=== PATIENT | male | born 1970 | race Caucasian/White ===

== ENCOUNTER → 2017-06-18 | Outpatient (CLI) | payer OTHER ==
[~2017-06-18] MED LIST: /BACIOPOI; CIPR500T19; INSUHUMDS SC; LEVO25TA5 PO; OMEP40CA2 PO; PERC5TAB8; PRIL20CA
--- NOTE | 2017-06-18 10:24 | REP ---
Gastric emptying nuclear scintigraphy: History: Gastroesophageal reflux. Technique: 1.09 mCi of technetium-99m sulfur colloid was ingested in two scrambled eggs and 6 ounces of water and sequential anterior and posterior images are acquired for an 89-minute imaging observation period. Regions of interest are drawn around the stomach to plot gastric emptying. Scintigraphic findings: Expected T1/2 is 90 minutes. 62 % emptying is observed in this patient during the 89-minute imaging observation period, for a calculated T1/2 in this patient of 78 minutes. Impression: Normal gastric emptying. Signed by Bill Griffiths MD 06/18/2017 10:15 A
== END ==
LOC: M RAD 07:37
PROVIDERS: ATTEND Nurse Practitioner Acute Care
DX: K21.9 Gastro-esophageal reflux disease without esophagitis (principal)

== ENCOUNTER 2017-07-24 12:03 | Outpatient (CLI) | payer OTHER ==
[~2017-07-24] VITALS: Ht 180.3 cm; Wt 88.9 kg
[2017-07-24] MEDS ORDERED: NS 1,000 ML IV ONE (12:45)
[2017-07-24] MEDS ORDERED: DEXTROSE 50% 50 ML SYRINGE As Ordered ONE (13:18)
[2017-07-24] MEDS ORDERED: PROPOFOL 200 MG/20 ML VIAL As Ordered ONE ×2 (13:41→13:51)
[2017-07-24] MEDS ORDERED: LIDOCAINE 2% INJ 100 MG/5 ML SDV (FOR ANES.) As Ordered ONE (13:41)
[2017-07-24] MEDS ORDERED: ONDANSETRON 4MG/2ML VIAL (J2405) As Ordered ONE (13:41)
[2017-07-24] MEDS ORDERED: DEXTROSE 50% 50 ML SYRINGE IV ONE (13:45)
--- NOTE | 2017-07-24 14:05 | ROOR ---
Patient Name: Jair Burnett Procedure Date: 07/24/2017 1:36 PM Date of : 1970 Age: 47 Room: [facility], [facility]IN [facility] Gender: Male Note Status: Finalized Procedure: Upper GI endoscopy Indications: Suspected non-erosive esophageal reflux Providers: Ignacio Kidd MD Referring MD: YESENIA CONSTANTINO JR, MD Requesting Provider: Medicines: Monitored Anesthesia Care Complications: No immediate complications. Procedure: Pre-Anesthesia Assessment: - Prior to the procedure, a History and Physical was performed, and patient medications and allergies were reviewed. The patient is competent. The risks and benefits of the procedure and the sedation options and risks were discussed with the patient. All questions were answered and informed consent was obtained. Patient identification and proposed procedure were verified by the physician, the nurse and the show worker in the procedure room. Mental Status Examination: alert and oriented. Airway Examination: normal oropharyngeal airway and neck mobility. Respiratory Examination: clear to auscultation. CV Examination: normal. Prophylactic Antibiotics: The patient does not require prophylactic antibiotics. Prior Anticoagulants: The patient has taken no previous anticoagulant or antiplatelet agents. ASA Grade Assessment: II - A patient with mild systemic disease. After reviewing the risks and benefits, the patient was deemed in satisfactory condition to undergo the procedure. The anesthesia plan was to use monitored anesthesia care (MAC). Immediately prior to administration of medications, the patient was re-assessed for adequacy to receive sedatives. The heart rate, respiratory rate, oxygen saturations, blood pressure, adequacy of pulmonary ventilation, and response to care were monitored throughout the procedure. The physical status of the patient was re-assessed after the procedure. The Endoscope was introduced through the mouth, and advanced to the second part of duodenum. The upper GI endoscopy was accomplished without difficulty. The patient tolerated the procedure well. Findings: The Z-line was regular and was found 35 cm from the incisors. A medium-sized hiatal hernia was present. Diffuse moderate inflammation characterized by erythema and granularity was found in the gastric antrum. Biopsies were taken with a cold forceps for Helicobacter pylori testing. Verification of patient identification for the specimen was done by the physician and nurse using the patient's name, date and medical record number. Estimated blood loss was minimal. The duodenal bulb and second portion of the duodenum were normal. Impression: - Z-line regular, 35 cm from the incisors. - Medium-sized hiatal hernia. - Gastritis. Biopsied. - Normal duodenal bulb and second portion of the duodenum. Recommendation: - Patient has a contact number available for emergencies. The signs and symptoms of potential delayed complications were discussed with the patient. Return to normal activities tomorrow. Written discharge instructions were provided to the patient. - Resume previous diet. - Continue present medications. - Do not take omeprazole or pantoprazole or any acid medications for the next 3 days. - Await pathology results. - Return to GI clinic as previously scheduled on 07/30/2017 at 8:30 AM. - Return to primary care physician. Ignacio Kidd MD Ignacio Kidd MD 07/24/2017 2:04:43 PM This report has been signed electronically. Number of Addenda: 0 Note Initiated On: 07/24/2017 1:36 PM Estimated Blood Loss: Estimated blood loss was minimal.
[2017-07-24 14:30] VITALS: BP 123/82
--- NOTE | 2017-08-10 14:40 | ROOR ---
Patient Name: Jair Burnett Procedure Date: 07/24/2017 1:40 PM Date of : 1970 Age: 47 Room: [facility] Gender: Male Note Status: Finalized Procedure: Esophageal MAYO pH Capsule Results / Interpretation Indications: Suspected gastro-esophageal reflux disease, Failure to respond to treatment of esophageal reflux Providers: Ignacio Kidd MD Referring MD: YESENIA CONSTANTINO JR, MD Requesting Provider: Medicines: None Complications: No immediate complications. Procedure: Pre-Anesthesia Assessment: - After reviewing the risks and benefits, the patient was deemed in satisfactory condition to undergo the procedure. - Patient identification and proposed procedure were verified prior to the procedure by the physician and the nurse. The procedure was verified in the pre-procedure area. The MAYO was accomplished without difficulty. The patient tolerated the procedure well. Findings: During the study the patient continued normal daily activity and normal diet and took no anti-reflux medications. DAY 1 ACID REFLUX ANALYSIS: - Acid Exposure with pH < 4.0: Total Percent Time: 10.3 %. - Number of Reflux Episodes: Total Refluxes: 34 Number of reflux episodes > 5 minutes: 6. - Longest reflux episode: 55 minutes. - See the [employer] MAYO data report for further details. DAY 2 ACID REFLUX ANALYSIS: - Acid Exposure Time(s) for pH < 4.0: Total Percent Time: 5.9 %. - Number of Reflux Episodes: Total Refluxes: 16 Number of reflux episodes > 5 minutes: 6. - Longest reflux episode: 24 minutes. - See the [employer] MAYO data report for further details. Total DeMeester Score: 37.2 Symptom correlation: Yes. Impression: - Abnormal ambulatory esophageal pH study indicating severely increased acid reflux. - Acid reflux is the cause of the patient's symptoms; there is excess acid exposure with good symptom correlation. - The complete results of this study (for the same date as above) are available in the patient's electronic medical record, and these results were personally reviewed by me. Attending Participation: I have reviewed and interpreted the results of the above documented diagnostic study. Ignacio Kidd MD Ignacio Kidd MD 08/10/2017 2:40:08 PM This report has been signed electronically. Number of Addenda: 0 Note Initiated On: 08/10/2017 2:24 PM
== END 2017-07-24 14:44 | disposition home or self-care (01) ==
LOC: M OPP 12:03
PROVIDERS: ATTEND Internal Medicine Gastroenterology
DX: K21.9 Gastro-esophageal reflux disease without esophagitis (principal); K29.70 Gastritis, unspecified, without bleeding; K44.9 Diaphragmatic hernia without obstruction or gangrene; E10.9 Type 1 diabetes mellitus without complications; Z96.41 Presence of insulin pump (external) (internal); E03.9 Hypothyroidism, unspecified; Z87.891 Personal history of nicotine dependence; Z91.013 Allergy to seafood; Z79.899 Other long term (current) drug therapy; Z80.0 Family history of malignant neoplasm of digestive organs
CPT/HCPCS: 43239; 88305; J2405

== ENCOUNTER → 2017-08-24 | Outpatient (CLI) | payer OTHER ==
--- NOTE | 2017-08-28 21:41 | SLEEPCENT ---
DATE OF PROCEDURE: 08/24/2017 ORDERED BY: Tiffanie Rivera Nocturnal polysomnography was performed for evaluation of sleep physiology in this patient with a history of excessive somnolence and nonrestorative sleep, experiencing observed apneas. The patient has comorbidities of hypotension and type 1 diabetes. 7 hours and 9 minutes of data were reviewed. There were 222 minutes of sleep identified. Sleep latency was mildly prolonged at 24 minutes. Rapid eye movement (REM) latency was quite prolonged at 278 minutes. Sleep architecture showed fragmentation and poor progression. Overall sleep efficiency was below 52%. REM time was significantly reduced. The patient's EKG showed a sinus rhythm with significant rate variability, average heart rate 56 beats per minute. Rate ranged 40-80 beats per minute. EEG showed coarsening in background. There were no focal events appreciated. Some alpha intrusion in non-REM stages was seen. There were 16 respiratory events identified of 10 seconds in duration or greater for an apnea-hypopnea index at the upper limits of normal 4.3. The events were not stage related. They were primarily obstructive. There were no significant oxygen desaturations identified. Limb activity was seen throughout the study, and the limb movement arousal index was quite elevated at 23.5. IMPRESSION: Periodic limb movement disorder (G47.61). Limb movement arousal index 23.5. RECOMMENDATION: Interventions to reduce the frequency of arousal from limb activity should improve the quality of the patient's sleep. Copy To: PETER Mays
== END ==
LOC: M SLEEP 19:54
PROVIDERS: ATTEND Nurse Practitioner Adult Health
DX: G47.30 Sleep apnea, unspecified (principal)

== ENCOUNTER → 2019-03-10 | Outpatient (REF) | payer OTHER | LOC: M LAB REF 12:40 | PROVIDERS: ATTEND Nurse Practitioner Adult Health | DX: E03.9 Hypothyroidism, unspecified (principal) ==

== ENCOUNTER 2020-07-10 17:15 | Emergency (ER) | payer OTHER ==
[~2020-07-10] VITALS: Ht 180.3 cm; Wt 84.3 kg
[~2020-07-10 17:15] MED LIST changes: -OMEP40CA2 PO; +OMEP40CA97 PO
[2020-07-10] MEDS ORDERED: NS 1,000 ML IV ONE ×2 (17:30→19:45)
[2020-07-10] MEDS ORDERED: ONDANSETRON 4MG/2ML VIAL IV ONE (17:45)
[2020-07-10 17:53] LABS: BASO % 0.3 % (0.0-1.0); EOS # 0.1 10^3/uL (0.0-0.5); EOS % 0.6 % (0.0-3.0); HEMATOCRIT 43.6 % (42.0-52.0); HEMOGLOBIN 15.1 g/dl (13.5-17.5); LYMPH # 1.3 10^3/uL (1.5-5.0); LYMPH % 8.6 % (24.0-44.0); MEAN CORPUSCULAR HEMOGLOBIN 32.5 pg (27.0-33.0); MEAN CORPUSCULAR HGB CONC 34.6 g/dl (32.0-36.5); MONO # 0.6 10^3/uL (0.0-0.8); MONO % 4.1 % (0.0-5.0); NEUTROPHILS # 13.3 10^3/uL (1.5-8.5); NEUTROPHILS % 85.8 % (36.0-66.0); PLATELET COUNT, AUTOMATED 324 10^3/uL (150-450); RED BLOOD COUNT 4.64 10^6/uL (4.30-6.10); WHITE BLOOD COUNT 15.5 10^3/uL (4.0-10.0)
[2020-07-10 17:54] LABS: VENOUS HCO3 13.6 MEQ/L (23.0-27.0); VENOUS O2 SATURATION 99.1 % (60.0-80.0); VENOUS PARTIAL PRESSURE CO2 25.5 mmHg (38.0-50.0); VENOUS PARTIAL PRESSURE O2 143.9 mmHg (30.0-50.0); VENOUS PH 7.344 UNITS (7.330-7.430); VENOUS STANDARD HCO3 16.7 MEQ/L; VENOUS TOTAL CO2 14.4 MEQ/L (24.0-28.0)
[2020-07-10] MEDS ORDERED: AMPH1TAB2 (18:09)
[2020-07-10] MEDS ORDERED: HYDR-3363 (18:09)
[2020-07-10] MEDS ORDERED: HumuLIN R (REGULAR) INSULIN (NovoLIN R) **100U/ML** PER UNIT IV ONE ×2 (18:15→19:45)
[2020-07-10 18:38] LABS: HEMOGLOBIN A1c 7.2 %
[2020-07-10 19:05] LABS: OSMOLALITY SERUM 306 MOSM/KG (275-295)
[2020-07-10 19:08] LABS: ACETONE/KETONE 43.31 MG/DL (<2.81); ALBUMIN 3.5 GM/DL (3.2-5.2); ALT/SGPT 20 U/L (12-78); BILIRUBIN,DIRECT 0.4 MG/DL (0.0-0.2); BILIRUBIN,TOTAL 1.2 MG/DL (0.2-1.0); CK-MB VALUE MASS 2.7 NG/ML (<3.6); CPK CREATINE PHOSPHOKINASE 112 U/L (39-308); LIPASE 16 U/L (73-393); MB/CK RELATIVE INDEX 2.41 (< OR =4); PHOSPHORUS LEVEL 4.7 MG/DL (2.5-4.9); TOTAL PROTEIN 6.7 GM/DL (6.4-8.2); TROPONIN I < 0.02 NG/ML (< 0.10)
[2020-07-10 21:42] LABS: ACETONE/KETONE 30.87 MG/DL (<2.81); BLOOD UREA NITROGEN 22 MG/DL (7-18); CALCIUM LEVEL 8.6 MG/DL (8.5-10.1); CARBON DIOXIDE LEVEL 19 MEQ/L (21-32); CHLORIDE LEVEL 106 MEQ/L (98-107); CREATININE FOR GFR 0.94 MG/DL (0.70-1.30); GLOMERULAR FILTRATION RATE > 60.0 (>60); GLUCOSE, FASTING 276 MG/DL (70-100); POTASSIUM SERUM 4.2 MEQ/L (3.5-5.1); SODIUM LEVEL 135 MEQ/L (136-145)
[2020-07-10] MEDS ORDERED: ONDA4TAB6 PO (21:58)
[2020-07-10] MEDS ORDERED: ONDANSETRON 4 MG ORAL DISINTEGRATING TAB PO ONE (22:00)
[2020-07-10 22:10] VITALS: BP 138/84
--- NOTE | 2020-07-11 20:29 | ECGEPIP ---
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
== END 2020-07-10 22:17 | disposition home or self-care (01) ==
LOC: M ED 17:15
DX: E10.65 Type 1 diabetes mellitus with hyperglycemia (principal); R11.2 Nausea with vomiting, unspecified; R00.0 Tachycardia, unspecified; K21.9 Gastro-esophageal reflux disease without esophagitis; Z91.013 Allergy to seafood; Z79.899 Other long term (current) drug therapy
CPT/HCPCS: 80047; 80048; 80076; 81001; 82010; 82550; 82553; 82803; 83036; 83690; 83735; 83930; 84100; 84484; 85025; 93005; 93041; 96361; 96374; 96375; 96376; 99285; J2405; Q0162

== ENCOUNTER → 2020-10-25 | Outpatient (REF) | payer OTHER ==
[~2020-10-25] MED LIST changes: +AMPH1TAB2; +HYDR-3363; +ONDA4TAB6 PO
== END ==
LOC: M LAB REF 08:26
PROVIDERS: ATTEND Surgery
DX: D23.39 Other benign neoplasm of skin of other parts of face (principal)

== ENCOUNTER → 2021-07-10 | Outpatient (CLI) | payer OTHER ==
[~2021-07-10] MED LIST changes: +OMEP40CA4 PO; -OMEP40CA97 PO
--- NOTE | 2021-07-11 06:08 | REP ---
INDICATION: LT ARM LUMP COMPARISON: None TECHNIQUE: Limited grayscale and color evaluation using linear high-frequency transducer. FINDINGS: Directed ultrasound examination at the site of palpable mass along the left forearm demonstrates a vague ovoid area of increased echogenicity measuring approximately 18 x 15 x 6 mm suggesting small lipoma. No further abnormality identified by ultrasound IMPRESSION: 1. Small focal ovoid lesion appears relatively benign by ultrasound and may represent lipoma. <Electronically signed by Kris Rizzo > 07/11/21 [id number]
== END ==
LOC: M RAD 12:46
PROVIDERS: ATTEND Internal Medicine
DX: D17.22 Benign lipomatous neoplasm of skin and subcutaneous tissue of left arm (principal)

== ENCOUNTER 2021-08-17 14:26 | Inpatient (IN) | payer OTHER ==
[~2021-08-17] VITALS: Ht 180.3 cm; Wt 88.5 kg
--- OUTSIDE RECORDS SUMMARY | 2021-08-17 14:32 | CCD ---
Author Author [facility] Organization [facility] Address Unknown Phone Unavailable Care Team Providers Care Manager Of Applications Development Name Role Phone RONY, B MELISSA LOGISTICS TEAM LEADER Unavailable Unavailable RONY, B MELISSA LOGISTICS TEAM LEADER Unavailable Unavailable RONY, B MELISSA LOGISTICS TEAM LEADER Unavailable Unavailable RONY, B MELISSA LOGISTICS TEAM LEADER Unavailable Unavailable RONY, B MELISSA LOGISTICS TEAM LEADER Unavailable Unavailable RONY, B MELISSA LOGISTICS TEAM LEADER Unavailable Unavailable RONY, B MELISSA LOGISTICS TEAM LEADER Unavailable Unavailable RONY, B MELISSA LOGISTICS TEAM LEADER Unavailable Unavailable RONY, B MELISSA LOGISTICS TEAM LEADER Unavailable Unavailable RONY, B MELISSA LOGISTICS TEAM LEADER Unavailable Unavailable RONY, B MELISSA LOGISTICS TEAM LEADER Unavailable Unavailable RONY, B MELISSA LOGISTICS TEAM LEADER Unavailable Unavailable RONY, B MELISSA LOGISTICS TEAM LEADER Unavailable Unavailable RONY, B MELISSA LOGISTICS TEAM LEADER Unavailable Unavailable RONY, B MELISSA LOGISTICS TEAM LEADER Unavailable Unavailable RONY, B MELISSA LOGISTICS TEAM LEADER Unavailable Unavailable RONY, B MELISSA LOGISTICS TEAM LEADER Unavailable Unavailable RONY, B MELISSA LOGISTICS TEAM LEADER Unavailable Unavailable RONY, B MELISSA LOGISTICS TEAM LEADER Unavailable Unavailable RONY, B MELISSA LOGISTICS TEAM LEADER Unavailable Unavailable RONY, B MELISSA LOGISTICS TEAM LEADER Unavailable Unavailable RONY, B MELISSA LOGISTICS TEAM LEADER Unavailable Unavailable RONY, B MELISSA LOGISTICS TEAM LEADER Unavailable Unavailable RONY, B MELISSA LOGISTICS TEAM LEADER Unavailable Unavailable RONY, B MELISSA LOGISTICS TEAM LEADER Unavailable Unavailable RONY, B MELISSA LOGISTICS TEAM LEADER Unavailable Unavailable RONY, B MELISSA LOGISTICS TEAM LEADER Unavailable Unavailable RONY, B MELISSA LOGISTICS TEAM LEADER Unavailable Unavailable RONY, B MELISSA LOGISTICS TEAM LEADER Unavailable Unavailable RONY, B MELISSA LOGISTICS TEAM LEADER Unavailable Unavailable RONY, B MELISSA LOGISTICS TEAM LEADER Unavailable Unavailable RONY, B MELISSA LOGISTICS TEAM LEADER Unavailable Unavailable RONY, B MELISSA LOGISTICS TEAM LEADER Unavailable Unavailable RONY, B MELISSA LOGISTICS TEAM LEADER Unavailable Unavailable RONY, B MELISSA LOGISTICS TEAM LEADER Unavailable Unavailable RONY, B MELISSA LOGISTICS TEAM LEADER Unavailable Unavailable RONY, B MELISSA LOGISTICS TEAM LEADER Unavailable Unavailable RONY, B MELISSA LOGISTICS TEAM LEADER Unavailable Unavailable RONY, B MELISSA LOGISTICS TEAM LEADER Unavailable Unavailable RONY, B MELISSA LOGISTICS TEAM LEADER Unavailable Unavailable RONY, B MELISSA LOGISTICS TEAM LEADER Unavailable Unavailable RONY, B MELISSA LOGISTICS TEAM LEADER Unavailable Unavailable RONY, B MELISSA LOGISTICS TEAM LEADER Unavailable Unavailable RONY, B MELISSA LOGISTICS TEAM LEADER Unavailable Unavailable RONY, B MELISSA LOGISTICS TEAM LEADER Unavailable Unavailable RONY, B MELISSA LOGISTICS TEAM LEADER Unavailable Unavailable RONY, B MELISSA LOGISTICS TEAM LEADER Unavailable Unavailable RONY, B MELISSA LOGISTICS TEAM LEADER Unavailable Unavailable RONY, B MELISSA LOGISTICS TEAM LEADER Unavailable Unavailable RONY, B MELISSA LOGISTICS TEAM LEADER Unavailable Unavailable RONY, B MELISSA LOGISTICS TEAM LEADER Unavailable Unavailable RONY, B MELISSA LOGISTICS TEAM LEADER Unavailable Unavailable RONY, B MELISSA LOGISTICS TEAM LEADER Unavailable Unavailable RONY, B MELISSA LOGISTICS TEAM LEADER Unavailable Unavailable RONY, B MELISSA LOGISTICS TEAM LEADER Unavailable Unavailable RONY, B MELISSA LOGISTICS TEAM LEADER Unavailable Unavailable RONY, B MELISSA LOGISTICS TEAM LEADER Unavailable Unavailable RONY, B MELISSA LOGISTICS TEAM LEADER Unavailable Unavailable RONY, B MELISSA LOGISTICS TEAM LEADER Unavailable Unavailable RONY, B MELISSA LOGISTICS TEAM LEADER Unavailable Unavailable RONY, B MELISSA LOGISTICS TEAM LEADER Unavailable Unavailable RONY, B MELISSA LOGISTICS TEAM LEADER Unavailable Unavailable PICKERAL JR, J RAGHAV PA-C Unavailable Unavailable PICKERAL JR, J RAGHAV PA-C Unavailable Unavailable PICKERAL JR, J RAGHAV PA-C Unavailable Unavailable PICKERAL JR, J RAGHAV PA-C Unavailable Unavailable PICKERAL JR, J RAGHAV PA-C Unavailable Unavailable PICKERAL JR, J RAGHAV PA-C Unavailable Unavailable PICKERAL JR, Matheus AVILEZ PA-C Unavailable Unavailable PICKERAL JR, J RAGHAV PA-C Unavailable Unavailable PICKERAL JR, J RAGHAV PA-C Unavailable Unavailable PICKERAL JR, Matheus AVILEZ PA-C Unavailable Unavailable PICKERAL JR, J RAGHAV PA-C Unavailable Unavailable PICKERAL JR, J RAGHAV PA-C Unavailable Unavailable PICKERAL JR, J RAGHAV PA-C Unavailable Unavailable PICKERAL JR, J RAGHAV PA-C Unavailable Unavailable PICKERAL JR, J RAGHAV PA-C Unavailable Unavailable PICKERAL JR, J RAGHAV PA-C Unavailable Unavailable PICKERAL JR, J ARGHAV PA-C Unavailable Unavailable PICKERAL JR, J RAGHAV PA-C Unavailable Unavailable PICKERAL JR, J RAGHAV PA-C Unavailable Unavailable PICKERAL JR, J RAGHAV PA-C Unavailable Unavailable PICKERAL JR, J RAGHAV PA-C Unavailable Unavailable PICKERAL JR, J RAGHAV PA-C Unavailable Unavailable PICKERAL JR, J RAGHAV PA-C Unavailable Unavailable PICKERAL JR, J RAGHAV PA-C Unavailable Unavailable PICKERAL JR, J RAGHVA PA-C Unavailable Unavailable PICKERAL JR, J RAGHAV PA-C Unavailable Unavailable PICKERAL JR, J RAGHAV PA-C Unavailable Unavailable BRYDEN, A LINSEY DO Unavailable Unavailable BRYDEN, A LINSEY DO Unavailable Unavailable BRYDEN, A LINSEY DO Unavailable Unavailable BRYDEN, A LINSEY DO Unavailable Unavailable BRYDEN, A LINSEY DO Unavailable Unavailable BRYDEN, A LINSEY DO Unavailable Unavailable BRYDEN, A LINSEY DO Unavailable Unavailable BRYDEN, A LINSEY DO Unavailable Unavailable BRYDEN, A LINSEY DO Unavailable Unavailable BRYDEN, A LINSEY DO Unavailable Unavailable BRYDEN, A LINSEY DO Unavailable Unavailable BRYDEN, A LINSEY DO Unavailable Unavailable BRYDEN, A LINSEY DO Unavailable Unavailable BRYDEN, A LINSEY DO Unavailable Unavailable BRYDEN, A LINSEY DO Unavailable Unavailable BRYDEN, A LINSEY DO Unavailable Unavailable BRYDEN, A LINSEY DO Unavailable Unavailable BRYDEN, A LINSEY DO Unavailable Unavailable BRYDEN, A LINSEY DO Unavailable Unavailable BRYDEN, A LINSEY DO Unavailable Unavailable BRYDEN, A LINSEY DO Unavailable Unavailable BRYDEN, A LINSEY DO Unavailable Unavailable BRYDEN, A LINSEY DO Unavailable Unavailable BRYDEN, A LINSEY DO Unavailable Unavailable BRYDEN, A LINSEY DO Unavailable Unavailable BRYDEN, A LINSEY DO Unavailable Unavailable BRYDEN, A LINSEY DO Unavailable Unavailable BRYDEN, A LINSEY DO Unavailable Unavailable BRYDEN, A LINSEY DO Unavailable Unavailable Damian Yuan MD Unavailable Unavailable Damian Yuan MD Unavailable Unavailable Damian Yuan MD Unavailable Unavailable Damian Yuan MD Unavailable Unavailable Damian Yuan MD Unavailable Unavailable Damian Yuan MD Unavailable Unavailable Damian Yuan MD Unavailable Unavailable Damian Yuan MD Unavailable Unavailable JonestownDamian MD Unavailable Unavailable JonestownDamian MD Unavailable Unavailable KwabenaDamian MD Unavailable Unavailable JonestownDamian MD Unavailable Unavailable Jonest[place]Damian MD Unavailable Unavailable KwabenaDamian MD Unavailable Unavailable [place]est[place]Damian MD Unavailable Unavailable [place]est[place]Damian MD Unavailable Unavailable Jonest[place]Damian MD Unavailable Unavailable Jonest[place]Damian MD Unavailable Unavailable KwabenaDamian MD Unavailable Unavailable Jonest[place]Damian MD Unavailable Unavailable [place]est[place]Damian MD Unavailable Unavailable [place]est[place]Damian MD Unavailable Unavailable KwabenaDamian MD Unavailable Unavailable [place]Damian MD Unavailable Unavailable KwabenaDamian MD Unavailable Unavailable KwabenaDamian MD Unavailable Unavailable KwabenaDamian MD Unavailable Unavailable KwabenaDamian MD Unavailable Unavailable KwabenaDamian MD Unavailable Unavailable [place]Damian MD Unavailable Unavailable [place]est[place]Damian MD Unavailable Unavailable [place]Damian MD Unavailable Unavailable KwabenaDamian MD Unavailable Unavailable [place]Damian MD Unavailable Unavailable KwabenaDamian MD Unavailable Unavailable KwabenaDamian MD Unavailable Unavailable [place]Damian MD Unavailable Unavailable KwabenaDamian MD Unavailable Unavailable [place]Damian MD Unavailable Unavailable [place]Damian MD Unavailable Unavailable KwabenaDamian MD Unavailable Unavailable [place]Damian MD Unavailable Unavailable KwabenaDamian MD Unavailable Unavailable KwabenaDamian MD Unavailable Unavailable KwabenaDamian MD Unavailable Unavailable KwabenaDamian MD Unavailable Unavailable KwabenaDamian MD Unavailable Unavailable KwabenaDamian MD Unavailable Unavailable KwabenaDamian MD Unavailable Unavailable [place]Damian MD Unavailable Unavailable KwabenaDamian MD Unavailable Unavailable KwabenaDamian MD Unavailable Unavailable [place]Damian MD Unavailable Unavailable KwabenaDamian MD Unavailable Unavailable KwabenaDamian MD Unavailable Unavailable KwabenaDamian MD Unavailable Unavailable KwabenaDamian MD Unavailable Unavailable KwabenaDamian MD Unavailable Unavailable KwabenaDamian MD Unavailable Unavailable KwabenaDamian MD Unavailable Unavailable KwabenaDamian MD Unavailable Unavailable KwabenaDamian MD Unavailable Unavailable [place]est[place]Damian MD Unavailable Unavailable KwabenaDamian MD Unavailable Unavailable JonestownDamian MD Unavailable Unavailable [place] F Tato WANG Unavailable Unavailable [place] F Tato WANG Unavailable Unavailable [place] F Tato WANG Unavailable Unavailable [place] F Tato WANG Unavailable Unavailable Kwabena F Tato WANG Unavailable Unavailable [place] F Tato WANG Unavailable Unavailable Kwabena F Tato WANG Unavailable Unavailable Kwabena F Tato WANG Unavailable Unavailable [place] F Tato WANG Unavailable Unavailable [place] F Tato WANG Unavailable Unavailable Kwabena F Tato WANG Unavailable Unavailable [place] F Tato WANG Unavailable Unavailable [place], F Tato WANG Unavailable Unavailable [place], F Tato WANG Unavailable Unavailable Kwabena F Tato WANG Unavailable Unavailable [place] F Tato WANG Unavailable Unavailable Kwabena F Tato WANG Unavailable Unavailable Kwabena F Tato WANG Unavailable Unavailable [place] F Tato WANG Unavailable Unavailable [place] F Tato WANG Unavailable Unavailable [place], F Tato WANG Unavailable Unavailable Shira Bernal MD Unavailable Unavailable Shira Bernal MD Unavailable Unavailable Shira Bernal MD Unavailable Unavailable Shira Bernal MD Unavailable Unavailable Shira Bernal MD Unavailable Unavailable Shira Bernal MD Unavailable Unavailable Shira Bernal MD Unavailable Unavailable Shira Bernal MD Unavailable Unavailable Shira Bernal MD Unavailable Unavailable Shira Bernal MD Unavailable Unavailable Shira Bernal MD Unavailable Unavailable Shira Bernal MD Unavailable Unavailable Shira Bernal MD Unavailable Unavailable Shira Bernal MD Unavailable Unavailable Shira Bernal MD Unavailable Unavailable Shira Bernal MD Unavailable Unavailable Shira Bernal MD Unavailable Unavailable Shira Bernal MD Unavailable Unavailable Shira Bernal MD Unavailable Unavailable Shira Bernal MD Unavailable Unavailable Shira Bernal MD Unavailable Unavailable Shira Bernal MD Unavailable Unavailable Shira Bernal MD Unavailable Unavailable Shira Bernal MD Unavailable Unavailable Shira Bernal MD Unavailable Unavailable Shira Bernal MD Unavailable Unavailable Shira Bernal MD Unavailable Unavailable Shira Bernal MD Unavailable Unavailable Shira Bernal MD Unavailable Unavailable Shira Bernal MD Unavailable Unavailable Shira Bernal MD Unavailable Unavailable Shira Bernal MD Unavailable Unavailable Shira Bernal MD Unavailable Unavailable Shira Bernal MD Unavailable Unavailable Shira Bernal MD Unavailable Unavailable Shira Bernal MD Unavailable Unavailable Shira Bernal MD Unavailable Unavailable Fish B Montserrat MD Unavailable Unavailable Shira Bernal MD Unavailable Unavailable Shira Bernal MD Unavailable Unavailable Shira Bernal MD Unavailable Unavailable Shira Bernal MD Unavailable Unavailable Shira Bernal MD Unavailable Unavailable Shira Bernal MD Unavailable Unavailable Shira Bernal MD Unavailable Unavailable Shira Bernal MD Unavailable Unavailable Shira Bernal MD Unavailable Unavailable Gabe B Montserrat WANG Unavailable Unavailable Gabe B Montserrat WANG Unavailable Unavailable Gabe B Montserrat WANG Unavailable Unavailable Gabe B Montserrat WANG Unavailable Unavailable Gabe B Montserrat WANG Unavailable Unavailable Gabe B Montserrat WANG Unavailable Unavailable Gabe B Montserrat WANG Unavailable Unavailable Fish B Montserrat WANG Unavailable Unavailable Fish B Montserrat WANG Unavailable Unavailable Gabe B Montserrat WANG Unavailable Unavailable Gabe B Montserrat WANG Unavailable Unavailable Gabe B Montserrat WANG Unavailable Unavailable Gabe B Montserrat WANG Unavailable Unavailable Fish B Montserrat WANG Unavailable Unavailable Gabe B Montserrat WANG Unavailable Unavailable Fish B Montserrat WANG Unavailable Unavailable Fish B Montserrat WANG Unavailable Unavailable Fish B Montserrat WANG Unavailable Unavailable MARVIN, J Helene ANP Unavailable Unavailable MARVIN, J Helene ANP Unavailable Unavailable MARVIN, J Helene ANP Unavailable Unavailable MARVIN, J Helene ANP Unavailable Unavailable MARVIN, J Helene ANP Unavailable Unavailable MARVIN, J Helene ANP Unavailable Unavailable MARVIN, J Helnee ANP Unavailable Unavailable MARVIN, J Helene ANP Unavailable Unavailable MARVIN, J Helene ANP Unavailable Unavailable MARVIN, J Helene ANP Unavailable Unavailable MARVIN, J Helene ANP Unavailable Unavailable MARVIN, J Helene ANP Unavailable Unavailable MARVIN, J Helene ANP Unavailable Unavailable MARVIN, J Helene ANP Unavailable Unavailable MARVIN, J Helene ANP Unavailable Unavailable MARVIN, J Helene ANP Unavailable Unavailable MARVIN, J Helene ANP Unavailable Unavailable MARVIN, J Helene ANP Unavailable Unavailable MARVIN, J Helene ANP Unavailable Unavailable MARVIN, J Helene ANP Unavailable Unavailable MARVIN, J Helene ANP Unavailable Unavailable MARVIN, J Helene ANP Unavailable Unavailable MARVIN, J Helene ANP Unavailable Unavailable MARVIN, J Helene ANP Unavailable Unavailable MARVIN, J Helene ANP Unavailable Unavailable MARVIN, J Helene ANP Unavailable Unavailable MARVIN, J Helene ANP Unavailable Unavailable MARVIN, J Helene ANP Unavailable Unavailable MARVIN, J Helene ANP Unavailable Unavailable MARVIN, J Helene ANP Unavailable Unavailable MARVIN, J Helene ANP Unavailable Unavailable MARVIN, J Helene ANP Unavailable Unavailable MARVIN, J Helene ANP Unavailable Unavailable MARVIN, J Helene ANP Unavailable Unavailable MARVIN, J Helene ANP Unavailable Unavailable MARVIN, J Helene ANP Unavailable Unavailable MARVIN, J Helene ANP Unavailable Unavailable MARVIN, J Helene ANP Unavailable Unavailable MARVIN, J Helene ANP Unavailable Unavailable MARVIN, J Helene ANP Unavailable Unavailable MARVIN, J Helene ANP Unavailable Unavailable MARVIN, J Helene ANP Unavailable Unavailable MARVIN, J Helene ANP Unavailable Unavailable MARVIN, J Helene ANP Unavailable Unavailable MARVIN, J Helene ANP Unavailable Unavailable MARVIN, J Helene ANP Unavailable Unavailable MARVIN, J Helene ANP Unavailable Unavailable MARVIN, J Helene ANP Unavailable Unavailable MARVIN, J Helene ANP Unavailable Unavailable MARVIN, J Helene ANP Unavailable Unavailable MARVIN, J Helene ANP Unavailable Unavailable MARVIN, J Helene ANP Unavailable Unavailable MARVIN, J Helene ANP Unavailable Unavailable MARVIN, J Helene ANP Unavailable Unavailable MARVIN, J Helene ANP Unavailable Unavailable MARVIN, J Helene ANP Unavailable Unavailable MARVIN, J Helene ANP Unavailable Unavailable MARVIN, J Helene ANP Unavailable Unavailable MARVIN, J Helene ANP Unavailable Unavailable MARVIN, J Helene ANP Unavailable Unavailable MARVIN, J Helene ANP Unavailable Unavailable MARVIN, J Helene ANP Unavailable Unavailable MARVIN, J Helene ANP Unavailable Unavailable MARVIN, J Helene ANP Unavailable Unavailable [place], Christopher DO Unavailable Unavailable Kwabena, Christopher DO Unavailable Unavailable Kwabena, Christopher DO Unavailable Unavailable [place], Christopher DO Unavailable Unavailable Kwabena, Christopher DO Unavailable Unavailable Kwabena, Christopher DO Unavailable Unavailable Kwabena, Christopher DO Unavailable Unavailable Kwabena, Christopher DO Unavailable Unavailable Kwabena, Christopher DO Unavailable Unavailable Kwabena, Christopher DO Unavailable Unavailable Re-disclosure Warning The records that you are about to access may contain information from federally-assisted alcohol or drug abuse programs. If such information is present, then the following federally mandated warning applies: This information has been disclosed to you from records protected by federal confidentiality rules (42 CFR part 2). The federal rules prohibit you from making any further disclosure of this information unless further disclosure is expressly permitted by the written consent of the person to whom it pertains or as otherwise permitted by 42 CFR part 2. A general authorization for the release of medical or other information is NOT sufficient for this purpose. The Federal rules restrict any use of the information to criminally investigate or prosecute any alcohol or drug abuse patient.The records that you are about to access may contain highly sensitive health information, the redisclosure of which is protected by Article 27-F of the [facility] Public Health law. If you continue you may have access to information: Regarding HIV / AIDS; Provided by facilities licensed or operated by the [facility] Office of Mental Health; or Provided by the [facility] Office for People With Developmental Disabilities. If such information is present, then the following [facility] mandated warning applies: This information has been disclosed to you from confidential records which are protected by state law. State law prohibits you from making any further disclosure of this information without the specific written consent of the person to whom it pertains, or as otherwise permitted by law. Any unauthorized further disclosure in violation of state law may result in a fine or fdc sentence or both. A general authorization for the release of medical or other information is NOT sufficient authorization for further disc losure. Family History Family Member Name Family Member Gender Family Member Status Date o f Status Description Data Source(s) Unknown Unknown Problem [facility] ([facility]) FATHER, GRANDMOTHER Unknown Female Problem [facility] ([facility]) Unknown Unknown Problem [facility] ([facility] Encounters Encounter Providers Location Date Indications Data Source(s ) Outpatient Attender: Montserrat Bernal MD Physical Therapy 07/18 03:30:00 PM EDT [facility] ([facility] ) Outpatient Attender: Checo Parikh 06/25/2021 11:00:00 AM EDT [facility] ([facility] ) Outpatient Attender: Montserrat Bernal MD Physical Therapy 03/25 03:30:00 PM EDT [facility] ([facility] ) Outpatient Attender: Helene Quintanilla 03/2021 09:00:00 AM EDT [facility] ([facility] ) Outpatient Attender: Montserrat Bernal MD Physical Therapy 12/17 08:45:00 AM EST [facility] ([facility]) Outpatient Attender: LINSEY Jung/Laura/Ralph/Eric ndmei 10/25/2020 09:10:00 AM EST [facility] ([facility]) Outpatient Attender: Montserrat Bernal MD Physical Therapy 10/22 08:45:00 AM EST [facility] ([facility]) Outpatient Attender: Helene Quintanilla 07:15:00 AM EST [facility] ([facility] ) Outpatient Attender: MELISSA URIBE NP Physical Therapy 02:45:00 PM EST [facility] ([facility]) Outpatient Attender: RAGHAV Quintanilla 1 10/17/2019 01:00:00 PM EST [facility] ([facility] ) Outpatient Attender: Tato Quintanilla 1 01:30:00 PM EDT [facility] ([facility] ) Outpatient Attender: Helene Quintanilla 08:30:00 AM EDT [facility] ([facility] ) Immunizations Vaccine Date Status Description Data Source(s) COVID-19 VACCINE Moderna 08/03/2021 12:00:00 AM EDT completed [facility] Vaccine Series Complete: YESThis Data wa s Submitted to [facility]. COVID-19 VACCINE Moderna 01/04/2021 12:00:00 AM EDT completed [facility] Vaccine Series Complete: YESThis Data wa s Submitted to [facility]. COVID-19 VACCINE Moderna 12/07/2020 12:00:00 AM EST completed [facility] Vaccine Series Complete: NOThis Data was Submitted to [facility]. Influenza, injectable, MDCK, preservative free, sukhdev valent 06/28/2020 08:50:00 AM EDT completed [facility] ([facility]) Medications Medication Brand Name Start Date Product Form Dose Route Admi nistrative Instructions Pharmacy Instructions Status Indications Reaction Description Data Source(s) Covid-19 vaccine, Unspecified 12/28/2020 12:00:00 AM EDT completed [facility] [facility]) Medication administered onsite Covid-19 vaccine, Unspecified 11/30/2020 12:00:00 AM EST completed [facility] ([place] [facility]) Medication administered onsite Insulin Lispro 100 UNT/ML Injectable Solution [Humalog] Vika log 08/17/2020 12:00:00 AM EST active M EDENT ([facility]) Cephalexin 500 MG Oral Capsule Cephalexin 08/17/2020 12:00:00 AM EST ORAL completed [facility] ([facility]) Esomeprazole 40 MG Delayed Release Oral Capsule Esomeprazole Magnesium 08/02/2020 12:00:00 AM EDT active [facility] ([facility]) Immunization Adminstration,1 Vaccine/Toxoid 06/28/2020 12:00 :00 AM EDT completed [facility] ([facility]) Medication administered onsite Insulin Lispro 100 UNT/ML Injectable Solution [Humalog] Vika log 06/06/2020 12:00:00 AM EDT completed [facility] ([facility]) Insurance Providers Payer name Policy type / Coverage type Policy ID Covered constitution party ID Covered constitution party's relationship to kunz Policy Kunz Plan Information POMCO [id number] [place]2 [id number] POM[employer] [id number] [place]2 [id number] [id number] Self [id number] [id number] Spouse [id number] UMR U [id number] Spouse [id number] [facility] ([facility]) [id number] Family Dependent [id number] [facility] [id number] Family Dependent [id number] [facility] (O) [id number] Family Dependent [id number] [facility] (O) [id number] Family Dependent [id number] [employer] [id number] Family Dependent [id number] [employer] [id number] Family Dependent [id number] [employer] [id number] Family Dependent [id number] [employer] [id number] Family Dependent [id number] [employer] Commercial [id number] Family Dependent UMR [facility] [id number] [place]2 [id number] [employer] O [id number] U [id number] [employer] Commercial [id number] Family Dependent [id number] [employer] (Old) Commercial [id number] Family Dependent [id number] UMR U [id number] Spouse [id number] Umr [employer] [id number] Family Dependent [id number] Problems, Conditions, and Diagnoses No Information Surgeries/Procedures Procedure Description Date Indications Data Source(s) Diabetic Foot Exam 07/18/2021 12:00:00 AM EDT [facility] ([facility] OFFICE OUTPATIENT VISIT 25 MINUTES 07/18/2021 12:00:00 AM EDT [facility] ([facility] ) ECG ROUTINE ECG W/LEAST 12 LDS W/I&R 06/25/2021 12:00: 00 AM EDT [facility] ([facility]) OFFICE OUTPATIENT VISIT 25 MINUTES 06/25/2021 12:00:00 AM EDT [facility] ([facility]) OFFICE OUTPATIENT VISIT 25 MINUTES 03/25/2021 12:00:00 AM EDT [facility]) Tangential Biopsy Of Skin, Single Lesion 02/18/2021 12 :00:00 AM EDT [facility] ([facility]) Tangential Each Separate/Additional Lesion 02/18/2021 12:00:00 AM EDT [facility] ([facility]) OFFICE OUTPATIENT VISIT 15 MINUTES 01/15/2021 12:00:00 AM EDT [facility] ([facility]) OFFICE OUTPATIENT VISIT 25 MINUTES 12/17/2020 12:00:00 AM EST [facility] ([facility]) EXC B9 LES MRGN XCP SK TG F/E/E/N/L/M 2.1-3.0CM 2020 12:00:00 AM EST [facility] ([facility], ) OFFICE OUTPATIENT VISIT 25 MINUTES 10/22/2020 12:00:00 AM EST [facility] ([facility]) OFFICE OUTPATIENT VISIT 15 MINUTES 10/03/2020 12:00:00 AM EST [facility] ([facility]) Results ID Date Data Source [id number] 07/18/2021 04:01:00 PM EDT [facility] ([facility]) Name Value Range Interpretation Code Description Data Karen rce(s) Supporting Document(s) Hemoglobin A1c/Hemoglobin.total in Blood 10.2 [facility] ([facility]) Glucose [Mass/volume] in Serum or Plasma 235 [facility] ([facility]) ID Date Data Source [id number] 06/29/2021 08:09:00 AM EDT [facility]) Name Value Range Interpretation Code Description Data Karen rce(s) Supporting Document(s) Laboratory test finding (navigational concept) Laboratory test result [facility] ([facility]) This nucleic acid amplification test was developed and its performance characteristics determined by [employer]. Nucleic acid amplification tests include RT-PCR and TMA. This test has not been FDA cleared or approved. This test has been authorized by FDA under an Emergency Use Authorization (EUA). This test is only authorized for the duration of time the declaration that circumstances exist justifying the authorization of the emergency use of in vitro diagnostic tests for detection of SARS-CoV-2 virus and/or diagnosis of COVID-19 infection under section 564(b)(1) of the Act, 21 U.S.C. 360bbb-3(b) (1), unless the authorizatio n is terminated or revoked sooner. When diagnostic testing is negative, the possibility of a false negative result should be considered in the context of a patient's recent exposures and the presence of clinical signs and symptoms consistent with COVID-19. An individual without symptoms of COVID-19 and who is not shedding SARS-CoV-2 virus would expect to have a negative (not detected) result in this assay. Laboratory test finding (navigational concept) Laboratory test result [facility] ([facility]) ID Date Data Source [id number] 06/25/2021 11:37:00 AM EDT [facility] ([facility]) Name Value Range Interpretation Code Description Data Karen rce(s) Supporting Document(s) Thyrotropin [Units/volume] in Serum or Plasma by Detec tion limit <= 0.05 mIU/L 0.55 uIU/mL 0.36-3.74 [facility] ([facility] ) ID Date Data Source [id number] 06/25/2021 11:37:00 AM EDT [facility] ([facility]) Name Value Range Interpretation Code Description Data Karen rce(s) Supporting Document(s) Cholesterol [Mass/volume] in Serum or Plasma 197 mg/dL 131-200 [facility] ([facility]) Cholesterol in HDL [Mass/volume] in Serum or Plasma 51 mg/dL 35-60 [facility] ([facility]) Triglyceride [Mass/volume] in Serum or Plasma 105 mg/dL 30-150 [facility] ([facility]) Cholesterol in LDL [Mass/volume] in Serum or Plasma by calcu lation 125 CALC 50-159 [facility] ([facility]) ID Date Data Source [id number] 06/25/2021 11:37:00 AM EDT [facility] ([facility]) Name Value Range Interpretation Code Description Data Karen rce(s) Supporting Document(s) Glucose [Mass/volume] in Serum or Plasma 109 mg/dL 74-99 [facility] ([facility]) 100-125 mg/dL PRE-DIABETES/FASTING >126 mg/dL DIABETES/FASTING Urea nitrogen [Mass/volume] in Serum or Plasma 13 mg/dL 7-18 [facility] ([facility]) Creatinine 0.8 mg/dL 0.6-1.3 [facility] Sodium [Moles/volume] in Serum or Plasma 142 meq/L 136-145 [facility] ([facility]) Carbon dioxide, total [Moles/volume] in Serum or Plasma 28 meq/L 21 -32 [facility] ([facility]) Potassium [Moles/volume] in Serum or Plasma 4.6 meq/L 3.5-5.1 [facility] ([facility]) Chloride [Moles/volume] in Serum or Plasma 106 meq/L 98-107 [facility] ([facility]) Alkaline phosphatase isoenzyme [Units/volume] in Serum or Pl asma 99 mg/dL 46-116 [facility] ([facility]) Calcium [Mass/volume] in Serum or Plasma 9.1 mg/dL 8.5-10.1 [facility] ([facility]) Alanine aminotransferase [Enzymatic activity/volume] in Seru m or Plasma 19 U/L 12-78 [facility] ([facility]) Aspartate aminotransferase [Enzymatic activity/volume] in Serum or Plasma 19 U/L 15-37 [facility] ([facility] ) Total Bilirubin 0.3 mg/dL 0.2-1.0 [facility] ([facility]) A/G Ratio 1.20 CALC 1.00-1.90 [facility]) Proteinase 3 Ab [Units/volume] in Serum 6.6 g/dL 6.4-8.2 [facility] ([facility]) Albumin [Mass/volume] in Serum or Plasma 3.6 g/dL 3.4-5.0 [facility] ([facility]) Glomerular filtration rate/1.73 sq M pre dicted among blacks [Volume Rate/Area] in Serum or Plasma by Creatinine-based formula (MDRD) Laboratory test result [facility] ([facility]) <content>CHRONIC KIDNEY DISEASE STAGING PER NKF</content>
<content></content>
<content>STAGE I & II GFR >= 60 NORMAL TO MILDLY DECREASED</content>
<content>STAGE III GFR 30-59 MODERATELY DECREASED</content>
<content>STAGE IV GFR 15-29 SEVERELY DECREASED</content>
<content>STAGE V GFR <15 VERY LITTLE GFR LEFT</content>
<content>ESRD GFR <15 ON TNT LINE SUPERVISOR</content>
<content></content> Glomerular filtration rate/1.73 sq M pre dicted among non-blacks [Volume Rate/Area] in Serum or Plasma by Creatinine-based formula (MDRD) Laboratory test result [facility] ) ID Date Data Source [id number] 06/25/2021 11:37:00 AM EDT [facility]) Name Value Range Interpretation Code Description Data Karen rce(s) Supporting Document(s) Hemoglobin A1c/Hemoglobin.total in Blood 10.0 % [facility]) Lab Result Notes: Pre-Diabetes 5.7 - 6.4 % Diabetes = or > 6.5% Glucose mean value [Mass/volume] in Blood Estimated fr om glycated hemoglobin 240 mg/dL 60-110 [facility] ) ID Date Data Source [id number] 03/25/2021 03:37:00 PM EDT [facility] ([facility]) Name Value Range Interpretation Code Description Data Karen rce(s) Supporting Document(s) Hemoglobin A1c/Hemoglobin.total in Blood 9 [facility] ([facility]) Glucose [Mass/volume] in Serum or Plasma 224 [facility]) ID Date Data Source [id number] 02/18/2021 03:00:00 PM EDT [facility]) Name Value Range Interpretation Code Description Data Karen rce(s) Supporting Document(s) [facility] Laboratory test result [facility] ([facility]) RESULTS DIAGNOSIS DIAGNOSIS: A. POSTERIOR NECK- ACCOUNTING PRACTICE MANAGER'S NODULE B. ANT LEFT CHEST- LICHEN SIMPLEX CHRONICUS RESULTS SIGNATURE Cb Gutierrez MD Electronic Signature: 21 FEB 2021 01:57 PM CLINICAL INFORMATION CLINICAL INFORMATION A. ULCERATED LESION; B. IRREGULAR LESION, BROWN SPECIMEN DATA GROSS DESCRIPTION A. Received in 10% buffered formalin is a shave biopsy of skin measuring [id number]. The specimen is quadrisected and entirely submitted in one cassette. B. Received in 10% buffered formalin is a punch biopsy of skin measuring [id number]. The specimen is bisected and entirely submitted in one cassette. MICROSCOPIC DESCRIPTION A. There is compact hyperkeratosis, ulceration, irregular psoriasiform epidermal hyperplasia and a thickened papillary dermis composed of coarse collagen. A mixed inflammatory cell infiltrate composed of lymphocytes and histiocytes are present around blood vessels in the superficial dermis. B. There is compact hyperkeratosis, irregular psoriasiform epidermal hyperplasia and a thickened papillary dermis composed of coarse collagen. A mixed inflammatory cell infiltrate composed of lymphocytes and histiocytes are present around blood vessels in the superficial dermis. CPT Codes 41492x9 The CPT codes provided are for information purposes only, and are based on AMA guidelines without regard to specific payor requirements. END OF REPORT FINAL REPORT-[facility] FINAL [facility],[address] [place] [address],[facility] [address] [address]. [phone]. [phone]. Conveyor Maintenance Mechanic: Waqas Candelaria MD [facility] [id number], [place] [id number], [place] [id number] Laboratory test finding (navigational concept) Laboratory test result [facility] ([facility]) ID Date Data Source [id number] 12/17/2020 10:09:00 AM EST [facility] ([facility]) Name Value Range Interpretation Code Description Data Karen rce(s) Supporting Document(s) Glucose [Mass/volume] in Serum or Plasma 122 [facility] ([facility]) Hemoglobin A1c/Hemoglobin.total in Blood 7.4 [facility] ([facility]) ID Date Data Source [id number] 10/25/2020 11:38:00 AM EST [facility] ([facility], ) Name Value Range Interpretation Code Description Data Karen rce(s) Supporting Document(s) Surgical pathology study Laboratory test result [facility] ([facility], ) FINAL DIAGNOSIS Skin, right cheek, excision: 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 Note: This findings are most consistent with a keratosis, such as a seborrheic keratosis, with superimposed features of prurigo nodularis. A small infundibular cyst is also noted. See [facility] [id number] 11/06/2020 - 1013 CLINICAL DIAGNOSIS Lesion right cheek 10/26/2020 - 1403 GROSS DIAGNOSIS Received in formalin labeled "right cheek" and consists of a fragment of skin, 3 x 1 x 0.6 cm. All in two. -OA 10/26/2020 - 1404 PRELIMINARY DIAGNOSIS 11/06/2020 - 1015 Signed BERTA ELI MD 10/30/2020 0909 (Prelim) Signed BERTA ELI MD 11/06/2020 1015 ID Date Data Source [id number] 10/03/2020 09:01:00 AM EST [facility] ([facility]) Name Value Range Interpretation Code Description Data Karen rce(s) Supporting Document(s) Hemoglobin A1c/Hemoglobin.total in Blood 7.5 % [facility] ([facility]) Lab Result Notes: Pre-Diabetes 5.7 - 6.4 % Diabetes = or > 6.5% Glucose mean value [Mass/volume] in Blood Estimated fr om glycated hemoglobin 169 mg/dL 60-110 [facility] ([facility]) ID Date Data Source [id number] 10/03/2020 09:01:00 AM EST [facility] ([facility]) Name Value Range Interpretation Code Description Data Karen rce(s) Supporting Document(s) Thyrotropin [Units/volume] in Serum or Plasma by Detec tion limit <= 0.05 mIU/L 1.94 uIU/mL 0.36-3.74 [facility] ([facility]) ID Date Data Source [id number] 10/03/2020 09:01:00 AM EST [facility] ([facility]) Name Value Range Interpretation Code Description Data Karen rce(s) Supporting Document(s) Thyrotropin [Units/volume] in Serum or Plasma by Detec tion limit <= 0.05 mIU/L 1.94 uIU/mL 0.36-3.74 [facility] ([facility] ) ID Date Data Source [id number] 10/03/2020 09:01:00 AM EST [facility] ([facility]) Name Value Range Interpretation Code Description Data Karen rce(s) Supporting Document(s) Hemoglobin A1c/Hemoglobin.total in Blood 7.5 % [facility] ([facility]) Lab Result Notes: Pre-Diabetes 5.7 - 6.4 % Diabetes = or > 6.5% Glucose mean value [Mass/volume] in Blood Estimated fr om glycated hemoglobin 169 mg/dL 60-110 [facility] ([facility] ) ID Date Data Source [id number] 10/03/2020 09:01:00 AM EST [facility] ([facility]) Name Value Range Interpretation Code Description Data Karen rce(s) Supporting Document(s) Hemoglobin A1c/Hemoglobin.total in Blood Laboratory test result [facility] ([facility]) Thyrotropin [Units/volume] in Serum or Plasma by Detec tion limit <= 0.05 mIU/L Laboratory test result [facility] ([facility]) ID Date Data Source [id number] 09/21/2020 04:02:00 PM EST [facility] ([facility]) Name Value Range Interpretation Code Description Data Karen rce(s) Supporting Document(s) Hemoglobin A1c/Hemoglobin.total in Blood 7.4 [facility] ([facility]) Glucose [Mass/volume] in Serum or Plasma 76 [facility] ([facility]) ID Date Data Source [id number] 07/28/2020 07:58:00 AM EDT [facility] ([facility]) Name Value Range Interpretation Code Description Data Karen rce(s) Supporting Document(s) Coronavirus Covid-19 Laboratory test result [facility] ([facility]) .[id number] ID Date Data Source [id number] 07/10/2020 10:02:00 PM EDT [facility] ([facility]) Name Value Range Interpretation Code Description Data Karen rce(s) Supporting Document(s) Bedside Glucose 315 mg/dL 70-105 [facility] ([facility]) ID Date Data Source [id number] 07/10/2020 08:56:00 PM EDT [facility] ([facility]) Name Value Range Interpretation Code Description Data Karen rce(s) Supporting Document(s) Glucose, Fasting 276 mg/dL 70-100 [facility] ([facility]) Blood Urea Nitrogen 22 mg/dL 7-18 [facility] ([facility]) Glomerular Filtration Rate Laboratory test result [facility] ([facility]) <content>Units are mL/min/1.73 m2</content>
<content></content>
<content>Chronic Kidney Disease Staging per NKF:</content>
<content></content>
<content>Stage I & II GFR >=60 Normal to Mildly Decreased</content>
<content>Stage III GFR 30- 59 Moderately Decreased</content>
<content>Stage IV GFR 15-29 Severely Decreased</content>
<content>Stage V GFR <15 Very Little GFR Left</content>
<content>ESRD GFR <15 on TNT LINE SUPERVISOR</content>
<content></content> Creatinine For GFR 0.94 mg/dL 0.70-1.30 [facility] ([facility]) Carbon Dioxide Level 19 meq/L 21-32 [facility] ([facility]) Potassium Serum 4.2 meq/L 3.5-5.1 [facility] ([facility]) Sodium Level 135 meq/L 136-145 [facility] ([facility]) Chloride Level 106 meq/L 98-107 [facility] ([facility]) Anion Gap 10 meq/L 8-16 [facility]) Calcium Level 8.6 mg/dL 8.5-10.1 [facility] ([facility]) ID Date Data Source [id number] 07/10/2020 08:56:00 PM EDT [facility] ([facility]) Name Value Range Interpretation Code Description Data Karen rce(s) Supporting Document(s) Acetone [Mass/volume] in Serum or Plasma 30.87 mg/dL [facility] ([facility]) ID Date Data Source [id number] 07/10/2020 08:36:00 PM EDT [facility] ([facility]) Name Value Range Interpretation Code Description Data Karen rce(s) Supporting Document(s) Bedside Glucose 287 mg/dL 70-105 [facility] ([facility]) ID Date Data Source [id number] 07/10/2020 07:24:00 PM EDT [facility] ([facility]) Name Value Range Interpretation Code Description Data Karen rce(s) Supporting Document(s) Bedside Glucose 374 mg/dL 70-105 [facility] ([facility]) ID Date Data Source [id number] 07/10/2020 06:36:00 PM EDT [facility] ([facility]) Name Value Range Interpretation Code Description Data Karen rce(s) Supporting Document(s) Bedside Glucose 469 mg/dL 70-105 [facility] ([facility]) ID Date Data Source [id number] 07/10/2020 06:19:00 PM EDT [facility] ([facility]) Name Value Range Interpretation Code Description Data Karen rce(s) Supporting Document(s) CPK Creatine Phosphokinase 112 U/L 39-308 [facility] ([facility]) MB/CK Relative Index 2.41 [facility] ([facility]) <content>DIAGNOSIS CRITERIA</content>
<content>MMB ng/ml Relative Index (RI)</content>
<content>NON-AMI < or = 5 N/A</content>
<content>LEMUS ZONE > 5 < or = 4</content>
<content>AMI > 5 > 4</content>
<content></content> Troponin I Laboratory test result [facility] ([facility]) <content>Troponin I Reference Interval f or Siemens [place] LOCI:</content>
<content></content>
<content>99th Percentile= 0.00-0.045 ng/ml</content>
<content></content>
<content>Risk Stratification:</content>
<content><= 0.10 ng/ml Decreased Risk for Adverse Clinical</content>
<content>Events.</content>
<content>0.10-1.50 ng/ml Increased Risk for Adverse Clinical</content>
<content>Events. Evaluation of additional</content>
<content>criterion and/or repeat testing in 2-6</content>
<content>hours is suggested to rule out myocardial</content>
<content>damage.</content>
<content>>= 1.50 ng/ml Indicative of Myocardial Injury.</content>
<content></content> CK-MB Value Mass 2.7 ng/mL [facility] ([facility]) ID Date Data Source [id number] 07/10/2020 06:19:00 PM EDT [facility] ([facility]) Name Value Range Interpretation Code Description Data Karen rce(s) Supporting Document(s) Ast/Sgot 16 U/L 7-37 [facility] ([facility]) Bilirubin,Total 1.2 mg/dL 0.2-1.0 [facility] ([facility]) Alt/SGPT 20 U/L 12-78 [facility] ([facility]) Alkaline Phosphatase 101 U/L 45-117 [facility] ([facility]) Bilirubin,Direct 0.4 mg/dL 0.0-0.2 [facility] ([facility]) Albumin/Globulin Ratio 1.1 [facility] ([facility]) Total Protein 6.7 GM/DL 6.4-8.2 [facility] ([facility]) Albumin 3.5 GM/DL 3.2-5.2 [facility] ([facility]) ID Date Data Source [id number] 07/10/2020 06:19:00 PM EDT [facility] ([facility]) Name Value Range Interpretation Code Description Data Karen rce(s) Supporting Document(s) Phosphate [Moles/volume] in Serum or Plasma 4.7 mg/dL 2.5-4.9 [facility] ([facility]) [id number] FIRST TUBE WAS HEMOLYZED [id number] FIRST TUBE WAS HEMOLYZED Acetone [Mass/volume] in Serum or Plasma 43.31 mg/dL [facility] ([facility]) [id number] FIRST TUBE WAS HEMOLYZED [id number] FIRST TUBE WAS HEMOLYZED Lipoprotein lipase [Enzymatic activity/volume] in Serum or Plasm a 16 U/L 73-393 [facility] ([facility]) [id number] FIRST TUBE WAS HEMOLYZED [id number] FIRST TUBE WAS HEMOLYZED Magnesium [Moles/volume] in Serum or Plasma 2.0 mg/dL 1.8-2.4 [facility] ([facility]) [id number] FIRST TUBE WAS HEMOLYZED [id number] FIRST TUBE WAS HEMOLYZED Osmolality of Serum or Plasma 306 MOSM/KG 275-295 [facility] ([facility]) [id number] FIRST TUBE WAS HEMOLYZED [id number] FIRST TUBE WAS HEMOLYZED ID Date Data Source [id number] 07/10/2020 05:49:00 PM EDT [facility] ([facility]) Name Value Range Interpretation Code Description Data Karen rce(s) Supporting Document(s) Laboratory test finding (navigational concept) 51.0 % 38.0-51.0 [facility] ([facility]) Laboratory test finding (navigational concept) 489 mg/dL 70-105 [facility] ([facility]) Laboratory test finding (navigational concept) 134 meq/L 136-145 [facility] ([facility]) Laboratory test finding (navigational concept) 5.0 mg/dL 4.5-5.3 [facility] ([facility]) Laboratory test finding (navigational concept) 96 meq/L 98-109 [facility] ([facility]) Laboratory test finding (navigational concept) 4.4 meq/L 3.5-5.1 [facility] ([facility]) Laboratory test finding (navigational concept) 0.8 mg/dL 0.6-1.3 [facility] ([facility]) Laboratory test finding (navigational concept) 22 mg/dL 8-26 [facility] ([facility]) Laboratory test finding (navigational concept) 16.0 MM/L 23.0-27.0 [facility] ([facility]) ID Date Data Source [id number] 07/10/2020 05:34:00 PM EDT [facility] ([facility]) Name Value Range Interpretation Code Description Data Karen rce(s) Supporting Document(s) Venous Partial Pressure O2 143.9 mmHg 30.0-50.0 [facility] ([facility]) Venous PH 7.344 units 7.330-7.430 [facility] ([facility] Venous Partial Pressure Co2 25.5 mmHg 38.0-50.0 [facility] ([facility]) Venous Hco3 13.6 meq/L 23.0-27.0 [facility] ([facility]) Venous Base Excess -10.0 [facility] ([facility]) Venous Total Co2 14.4 meq/L 24.0-28.0 [facility] ([facility]) Venous Standard Hco3 16.7 meq/L [facility] ( [facility]) Venous O2 Saturation 99.1 % 60.0-80.0 [facility] ([facility]) ID Date Data Source [id number] 07/10/2020 05:34:00 PM EDT [facility] ([facility]) Name Value Range Interpretation Code Description Data Karen rce(s) Supporting Document(s) Hemoglobin A1c 7.2 % [facility]) <content>REFERENCE RANGES:</content><br/ ><content></content>
<content><=5.6% NORMAL</content>
<content>5.7-6.4% SUGGESTS IMPAIRED GLUCOSE METABOLISM/PREDIABETIC</content>
<content>>= 6.5% ABNORMAL</content>
<content></content> Estimated Average Glucose 160 mg/dL 60-110 [facility] ([facility]) ID Date Data Source [id number] 07/10/2020 05:34:00 PM EDT [facility] ([facility]) Name Value Range Interpretation Code Description Data Karen rce(s) Supporting Document(s) Color, Urine RFX Laboratory test result [facility] ([facility]) Appearance, Urine RFX Laboratory test result [facility] ([facility]) Specific [place] Ur Auto RFX 1.028 1.002-1.035 [facility] ([facility]) PH,Urine RFX 5.0 units 5.0-9.0 [facility] ([facility]) Protein, Urine Auto RFX Laboratory test result [facility] ([facility]) Bilirubin, Urine Auto RFX Laboratory test result [facility] ([facility]) Urobilinogen, Urine Auto RFX 0.2 mg/dL 0.0-2.0 [facility] ([facility]) Ketone, Urine Auto RFX Laboratory test result [facility] ([facility]) Glucose, Urine (Ua) Auto RFX [facility] Blood, Urine Blood RFX Laboratory test result [facility] ([facility]) Leukocyte Esterase Ur Auto RFX Laboratory test [facility]) Nitrite, Urine Auto RFX Laboratory test result [facility] ([facility]) WBC, Urine Auto RFX 0 /HPF 0-3 [facility] ([facility]) Bacteria, Urine Auto RFX Laboratory test result [facility] ([facility]) RBC, Urine Auto RFX 0 /HPF 0-3 [facility] ([facility]) Hyaline Cast, Urine Auto RFX 0 /LPF 0-1 M EDENT ([facility]) Squam Epithelial Cell Ur Aurfx 0 /HPF 0-6 [facility] ([facility]) ID Date Data Source [id number] 07/10/2020 05:26:00 PM EDT [facility] ([facility]) Name Value Range Interpretation Code Description Data Karen rce(s) Supporting Document(s) White Blood Count 15.5 10 4.0-10.0 [facility] ([facility]) Red Blood Count 4.64 10 4.30-6.10 [facility] ([facility]) Mean Corpuscular Volume 94.0 fl 80.0-96.0 [facility] ([facility]) Hemoglobin 15.1 g/dL 13.5-17.5 [facility] Hematocrit 43.6 % 42.0-52.0 [facility] Platelet Count, Automated 324 10 150-450 [facility] NT ([facility]) Mean Corpuscular HGB Conc 34.6 g/dL 32.0-36.5 [facility] NT ([facility]) Mean Corpuscular Hemoglobin 32.5 pg 27.0-33.0 [facility] ([facility]) Red Cell Distribution Width 11.7 % 11.5-14.5 [facility] ([facility]) Lymph % 8.6 % 24.0-44.0 [facility] [facility]) [place] % 4.1 % 0.0-5.0 [facility] [facility] Neutrophils % 85.8 % 36.0-66.0 [facility] ([facility]) Baso % 0.3 % 0.0-1.0 [facility] [facility] Immature Granulocyte % 0.6 % 0-3.0 [facility] ([facility]) Eos % 0.6 % 0.0-3.0 [facility] [facility] [place] # 0.6 10 0.0-0.8 [facility] ([place] [facility]) Nucleated Red Blood Cell % 0.0 % 0-0 MED [facility] ([facility]) Lymph # 1.3 10 1.5-5.0 [facility] [facility] Neutrophils # 13.3 10 1.5-8.5 [facility] ([facility]) Eos # 0.1 10 0.0-0.5 [facility] [facility] Baso # 0.0 10 0.0-0.2 [facility] [facility] ID Date Data Source [id number] 07/10/2020 05:24:00 PM EDT [facility] ([facility]) Name Value Range Interpretation Code Description Data Karen rce(s) Supporting Document(s) Bedside Glucose 471 mg/dL 70-105 [facility] ([facility]) ID Date Data Source [id number] 06/28/2020 09:05:00 AM EDT [facility] ([facility]) Name Value Range Interpretation Code Description Data Karen rce(s) Supporting Document(s) Cholesterol [Mass/volume] in Serum or Plasma 208 mg/dL 131-200 [facility] ([facility]) Cholesterol in LDL [Mass/volume] in Serum or Plasma by calcu lation 131 CALC 50-159 [facility] ([facility]) Cholesterol in HDL [Mass/volume] in Serum or Plasma 57 mg/dL 35-60 [facility] ([facility]) Triglyceride [Mass/volume] in Serum or Plasma 98 mg/dL 30-150 [facility] ([facility]) ID Date Data Source [id number] 06/19/2020 09:30:00 AM EDT [facility] Name Value Range Interpretation Code Description Data Karen rce(s) Supporting Document(s) Coronavirus Covid-19 Laboratory test result [facility]) This nucleic acid amplification test was developed and its performance characteristics determined by [employer]. Nucleic acid amplification tests include PCR and TMA. This test has not been FDA cleared or approved. This test has been authorized by FDA under an Emergency Use Authorization (EUA). This test is only authorized for the duration of time the declaration that circumstances exist justifying the authorization of the emergency use of in vitro diagnostic tests for detection of SARS-CoV-2 virus and/or diagnosis of COVID-19 infection under section 564(b)(1) of the Act, 21 U.S.C. 360bbb-3(b) (1), unless the authorizatio n is terminated or revoked sooner. When diagnostic testing is negative, the possibility of a false negative result should be considered in the context of a patient's recent exposures and the presence of clinical signs and symptoms consistent with COVID-19. An individual without symptoms of COVID-19 and who is not shedding SARS-CoV-2 virus would expect to have a negative (not detected) result in this assay. Procedure Social History Code Duration Value Status Description Data Source(s ) Smoking 07/18/2021 12:00:00 AM EDT Patient is a former smoker completed Patient is a former smoker [facility] ([facility]) Vital Signs ID Date Data Source UNK Name Value Range Interpretation Code Description Data Source(s) Oxygen saturation in Arterial blood by Pulse oximetry 98 % 98 % [facility] ([facility]) Systolic blood pressure 124 mm[Hg] 124 mm[Hg] [facility] Diastolic blood pressure 88 mm[Hg] 88 mm[Hg] [facility] ([facility]) Heart rate 129 /min 129 /min [facility] ([facility]) Body height 70 [in_i] 70 [in_i] [facility] ([facility]) 5'10" Body weight 191.50 [lb_av] 191.50 [lb_av] [facility] Body mass index (BMI) [Ratio] 27.5 kg/m2 27.5 k g/m2 [facility] ([facility] ) Diastolic blood pressure 88 mm[Hg] 88 mm[Hg] [facility] ([facility]) Systolic blood pressure 126 mm[Hg] 126 mm[Hg] M [facility] ([facility]) Heart rate 130 /min 130 /min [facility] ([facility]) Body height 70.5 [in_i] 70.5 [in_i] [facility] ([facility]) 5'10.50" Oxygen saturation in Arterial blood by Pulse oximetry 99 % 99 % [facility] ([facility]) Body weight 197.00 [lb_av] 197.00 [lb_av] [facility] T ([facility]) Body mass index (BMI) [Ratio] 27.9 kg/m2 27.9 k g/m2 [facility] ([facility]) Body mass index (BMI) [Ratio] 27.7 kg/m2 27.7 k g/m2 [facility] ([facility] ) Oxygen saturation in Arterial blood by Pulse oximetry 98 % 98 % [facility] ([facility] ) Heart rate 77 /min 77 /min [facility] ([facility] ) Body height 70 [in_i] 70 [in_i] [facility] ([facility] ) 5'10" Body weight 193.25 [lb_av] 193.25 [lb_av] [facility] T ([facility] ) Body temperature 96.8 [degF] 96.8 [degF] [facility] ([facility] ) Systolic blood pressure 124 mm[Hg] 124 mm[Hg] M [facility] ([facility] ) Diastolic blood pressure 76 mm[Hg] 76 mm[Hg] [facility] ([facility] ) Body height 70.5 [in_i] 70.5 [in_i] [facility] ([facility]) 5'10.50" Body weight 200.00 [lb_av] 200.00 [lb_av] [facility] T ([facility]) Heart rate 117 /min 117 /min [facility] ([facility]) Oxygen saturation in Arterial blood by Pulse oximetry 97 % 97 % [facility] ([facility]) Body mass index (BMI) [Ratio] 28.3 kg/m2 28.3 k g/m2 [facility] ([facility]) Systolic blood pressure 112 mm[Hg] 112 mm[Hg] M [facility] ([facility]) Diastolic blood pressure 80 mm[Hg] 80 mm[Hg] [facility] ([facility]) Heart rate 106 /min 106 /min [facility] ([facility]) Body height 70.5 [in_i] 70.5 [in_i] [facility] ([facility]) 5'10.50" Body weight 196.00 [lb_av] 196.00 [lb_av] [facility] T ([facility]) Body mass index (BMI) [Ratio] 27.7 kg/m2 27.7 k g/m2 [facility] ([facility]) Body mass index (BMI) [Ratio] 28.9 kg/m2 28.9 k g/m2 [facility] ([facility]) Oxygen saturation in Arterial blood by Pulse oximetry 98 % 98 % [facility] ([facility]) Systolic blood pressure 110 mm[Hg] 110 mm[Hg] M [facility] ([facility] ) Diastolic blood pressure 76 mm[Hg] 76 mm[Hg] [facility] ([facility]) Heart rate 119 /min 119 /min [facility]) Body temperature 96.8 [degF] 96.8 [degF] [facility] ([facility]) Body height 70 [in_i] 70 [in_i] [facility] ([facility]) 5'10" Body weight 201.50 [lb_av] 201.50 [lb_av] [facility] T ([facility]) [place] body weight 172 [lb_av] 172 [lb_av] [facility] T ([facility], ) Body weight 198.12 [lb_av] 198.12 [lb_av] [facility] T ([facility], ) Body weight 89.870 kg 89.870 kg [facility] ([facility], ) Body surface area Derived from formula 2.10 m2 2.10 m2 [facility], ) Body mass index (BMI) [Ratio] 27.6 kg/m2 27.6 k g/m2 [facility], ) Systolic blood pressure 121 mm[Hg] 121 mm[Hg] M [facility] ([facility], ) Diastolic blood pressure 84 mm[Hg] 84 mm[Hg] [facility] ([facility], ) Heart rate 112 /min 112 /min [facility] ([facility], ) Body temperature 98.4 [degF] 98.4 [degF] [facility] ([facility], ) Body height 71 [in_i] 71 [in_i] [facility] ([facility], ) 5'11" Systolic blood pressure 136 mm[Hg] 136 mm[Hg] M [facility] ([facility]) Diastolic blood pressure 72 mm[Hg] 72 mm[Hg] [facility] ([facility]) Heart rate 100 /min 100 /min [facility] ([facility]) Body weight 198.00 [lb_av] 198.00 [lb_av] [facility] T ([facility]) Oxygen saturation in Arterial blood by Pulse oximetry 98 % 98 % [facility] ([facility]) Oxygen saturation in Arterial blood by Pulse oximetry 97 % 97 % [facility] ([facility]) Body mass index (BMI) [Ratio] 28.5 kg/m2 28.5 k g/m2 [facility]) Body weight 198.44 [lb_av] 198.44 [lb_av] [facility] T ([facility]) Body height 70 [in_i] 70 [in_i] [facility] ([facility]) 5'10" Body temperature 97.8 [degF] 97.8 [degF] [facility] ([facility]) Heart rate 110 /min 110 /min [facility] ([facility]) Diastolic blood pressure 70 mm[Hg] 70 mm[Hg] [facility] ([facility] ) Systolic blood pressure 120 mm[Hg] 120 mm[Hg] [facility]) Systolic blood pressure 116 mm[Hg] 116 mm[Hg] [facility]) Diastolic blood pressure 70 mm[Hg] 70 mm[Hg] [facility] ([facility]) Heart rate 102 /min 102 /min [facility] Body height 70.5 [in_i] 70.5 [in_i] [facility] ([facility]) 5'10.50" Body weight 191.00 [lb_av] 191.00 [lb_av] [facility] T ([facility]) Oxygen saturation in Arterial blood by Pulse oximetry 97 % 97 % [facility] ([facility]) [facility] Body mass index (BMI) [Ratio] 27.0 kg/m2 27.0 k g/m2 [facility] ([facility]) Heart rate 68 /min 68 /min [facility] Systolic blood pressure 122 mm[Hg] 122 mm[Hg] M [facility] ([facility]) Diastolic blood pressure 68 mm[Hg] 68 mm[Hg] [facility] ([facility]) Body weight 193.00 [lb_av] 193.00 [lb_av] [facility] ([facility]) Body mass index (BMI) [Ratio] 27.3 kg/m2 27.3 k g/m2 [facility] ([facility]) Body height 70.5 [in_i] 70.5 [in_i] [facility] ([facility]) 5'10.50" Systolic blood pressure 120 mm[Hg] 120 mm[Hg] [facility]) Diastolic blood pressure 70 mm[Hg] 70 mm[Hg] [facility] ([facility]) Heart rate 72 /min 72 /min [facility] ([facility]) Body height 70.5 [in_i] 70.5 [in_i] [facility] ([facility]) 5'10.50" Body weight 193.00 [lb_av] 193.00 [lb_av] [facility] T ([facility]) Oxygen saturation in Arterial blood by Pulse oximetry 98 % 98 % [facility] ([facility]) Body mass index (BMI) [Ratio] 27.3 kg/m2 27.3 k g/m2 [facility] ([facility])
[2021-08-17] MEDS ORDERED: DEXTROAMP-AMPHETAMIN PO (14:46)
[2021-08-17] MEDS ORDERED: SERT50TA29 PO (14:46)
[2021-08-17] MEDS ORDERED: NS 1,000 ML IV ONE ×2 (14:50→15:10)
--- OUTSIDE RECORDS SUMMARY | 2021-08-17 14:59 | CCD ---
Author Author [facility] Organization [facility] Address Unknown Phone Unavailable Care Team Providers Care Yarrow Gatherer Name Role Phone RONY, B MELISSA NUCLEAR OFFICER Unavailable Unavailable RONY, B MELISSA NUCLEAR OFFICER Unavailable Unavailable RONY, B MELISSA NUCLEAR OFFICER Unavailable Unavailable RONY, B MELISSA NUCLEAR OFFICER Unavailable Unavailable RONY, B MELISSA NUCLEAR OFFICER Unavailable Unavailable RONY, B MELISSA NUCLEAR OFFICER Unavailable Unavailable RONY, B MELISSA NUCLEAR OFFICER Unavailable Unavailable RONY, B MELISSA NUCLEAR OFFICER Unavailable Unavailable RONY, B MELISSA NUCLEAR OFFICER Unavailable Unavailable RONY, B MELISSA NUCLEAR OFFICER Unavailable Unavailable RONY, B MELISSA NUCLEAR OFFICER Unavailable Unavailable RONY, B MELISSA NUCLEAR OFFICER Unavailable Unavailable RONY, B MELISSA NUCLEAR OFFICER Unavailable Unavailable RONY, B MELISSA NUCLEAR OFFICER Unavailable Unavailable RONY, B MELISSA NUCLEAR OFFICER Unavailable Unavailable RONY, B MELISSA NUCLEAR OFFICER Unavailable Unavailable RONY, B MELISSA NUCLEAR OFFICER Unavailable Unavailable RONY, B MELISSA NUCLEAR OFFICER Unavailable Unavailable RONY, B MELISSA NUCLEAR OFFICER Unavailable Unavailable RONY, B MELISSA NUCLEAR OFFICER Unavailable Unavailable RONY, B MELISSA NUCLEAR OFFICER Unavailable Unavailable RONY, B MELISSA NUCLEAR OFFICER Unavailable Unavailable RONY, B MELISSA NUCLEAR OFFICER Unavailable Unavailable RONY, B MELISSA NUCLEAR OFFICER Unavailable Unavailable RONY, B MELISSA NUCLEAR OFFICER Unavailable Unavailable RONY, B MELISSA NUCLEAR OFFICER Unavailable Unavailable RONY, B MELISSA NUCLEAR OFFICER Unavailable Unavailable RONY, B MELISSA NUCLEAR OFFICER Unavailable Unavailable RONY, B MELISSA NUCLEAR OFFICER Unavailable Unavailable RONY, B MELISSA NUCLEAR OFFICER Unavailable Unavailable RONY, B MELISSA NUCLEAR OFFICER Unavailable Unavailable RONY, B MELISSA NUCLEAR OFFICER Unavailable Unavailable RONY, B MELISSA NUCLEAR OFFICER Unavailable Unavailable RONY, B MELISSA NUCLEAR OFFICER Unavailable Unavailable RONY, B MELISSA NUCLEAR OFFICER Unavailable Unavailable RONY, B MELISSA NUCLEAR OFFICER Unavailable Unavailable RONY, B MELISSA NUCLEAR OFFICER Unavailable Unavailable RONY, B MELISSA NUCLEAR OFFICER Unavailable Unavailable RONY, B MELISSA NUCLEAR OFFICER Unavailable Unavailable RONY, B MELISSA NUCLEAR OFFICER Unavailable Unavailable RONY, B MELISSA NUCLEAR OFFICER Unavailable Unavailable RONY, B MELISSA NUCLEAR OFFICER Unavailable Unavailable RONY, B MELISSA NUCLEAR OFFICER Unavailable Unavailable RONY, B MELISSA NUCLEAR OFFICER Unavailable Unavailable RONY, B MELISSA NUCLEAR OFFICER Unavailable Unavailable RONY, B MELISSA NUCLEAR OFFICER Unavailable Unavailable RONY, B MELISSA NUCLEAR OFFICER Unavailable Unavailable RONY, B MELISSA NUCLEAR OFFICER Unavailable Unavailable RONY, B MELISSA NUCLEAR OFFICER Unavailable Unavailable RONY, B MELISSA NUCLEAR OFFICER Unavailable Unavailable RONY, B MELISSA NUCLEAR OFFICER Unavailable Unavailable RONY, B MELISSA NUCLEAR OFFICER Unavailable Unavailable RONY, B MELISSA NUCLEAR OFFICER Unavailable Unavailable RONY, B MELISSA NUCLEAR OFFICER Unavailable Unavailable RONY, B MELISSA NUCLEAR OFFICER Unavailable Unavailable RONY, B MELISSA NUCLEAR OFFICER Unavailable Unavailable RONY, B MELISSA NUCLEAR OFFICER Unavailable Unavailable RONY, B MELISSA NUCLEAR OFFICER Unavailable Unavailable RONY, B MELISSA NUCLEAR OFFICER Unavailable Unavailable RONY, B MELISSA NUCLEAR OFFICER Unavailable Unavailable RONY, B MELISSA NUCLEAR OFFICER Unavailable Unavailable RONY, B MEILSSA NUCLEAR OFFICER Unavailable Unavailable PICKERAL JR, J RAGHAV PA-C [...] Unavailable Unavailable Damian Yuan MD Unavailable Unavailable HendersonDamian MD Unavailable Unavailable HendersonDamian MD Unavailable Unavailable KwabenaDamian MD Unavailable Unavailable HendersonDamian MD Unavailable Unavailable HendersonDamian MD Unavailable Unavailable KwabenaDamian MD Unavailable Unavailable HendersonDamian MD Unavailable Unavailable HendersonDamian MD Unavailable Unavailable HendersonDamian MD Unavailable Unavailable HendersonDamian MD Unavailable Unavailable KwabenaDamian MD Unavailable Unavailable HendersonDamian MD Unavailable Unavailable HendersonDamian MD Unavailable Unavailable HendersonDamian MD Unavailable Unavailable KwabenaDamian MD Unavailable Unavailable HendersonDamian MD Unavailable Unavailable KwabenaDamian MD Unavailable Unavailable KwabenaDamian MD Unavailable Unavailable KwabenaDamian MD Unavailable Unavailable KwabenaDamian MD Unavailable Unavailable KwabenaDamian MD Unavailable Unavailable HendersonDamian MD Unavailable Unavailable HendersonDamian MD Unavailable Unavailable HendersonDamian MD Unavailable Unavailable KwabenaDamian MD Unavailable Unavailable HendersonDamian MD Unavailable Unavailable KwabenaDamian MD Unavailable Unavailable KwabenaDamian MD Unavailable Unavailable HendersonDamian MD Unavailable Unavailable KwabenaDamian MD Unavailable Unavailable HendersonDamian MD Unavailable Unavailable HendersonDamian MD Unavailable Unavailable KwabenaDamian MD Unavailable Unavailable HendersonDamian MD Unavailable Unavailable KwabenaDamian MD Unavailable Unavailable KwabenaDamian MD Unavailable Unavailable KwabenaDmaian MD Unavailable Unavailable KwabenaDamian MD Unavailable Unavailable KwabenaDamian MD Unavailable Unavailable KwabenaDamian MD Unavailable Unavailable KwabenaDamian MD Unavailable Unavailable HendersonDamian MD Unavailable Unavailable KwabenaDamian MD Unavailable Unavailable KwabenaDamian MD Unavailable Unavailable HendersonDamian MD Unavailable Unavailable KwabenaDamian MD Unavailable Unavailable KwabenaDamian MD Unavailable Unavailable KwabenaDamian MD Unavailable Unavailable KwabenaDamian MD Unavailable Unavailable KwabenaDamian MD Unavailable Unavailable KwabenaDamian MD Unavailable Unavailable KwabenaDamian MD Unavailable Unavailable KwabenaDamian MD Unavailable Unavailable KwabenaDamian MD Unavailable Unavailable HendersonDamian MD Unavailable Unavailable KwabenaDamian MD Unavailable Unavailable HendersonDamian MD Unavailable Unavailable Henderson F Tato WANG Unavailable Unavailable Henderson F Tato WANG Unavailable Unavailable Henderson F Tato WANG Unavailable Unavailable Henderson F Tato WANG Unavailable Unavailable Kwabena F Tato WANG Unavailable Unavailable Henderson F Tato WANG Unavailable Unavailable Kwabena F Tato WANG Unavailable Unavailable Kwabena F Tato WANG Unavailable Unavailable Henderson F Tato WANG Unavailable Unavailable Henderson F Tato WANG Unavailable Unavailable Kwabena F Tato WANG Unavailable Unavailable Henderson F Tato WANG Unavailable Unavailable Henderson, F Tato WANG Unavailable Unavailable Henderson, F Tato WANG Unavailable Unavailable Kwabena F Tato WANG Unavailable Unavailable Henderson F Tato WANG Unavailable Unavailable Kwabena F Tato WANG Unavailable Unavailable Kwabena F Tato WANG Unavailable Unavailable Henderson F Tato WANG Unavailable Unavailable Henderson F Tato WANG Unavailable Unavailable Henderson, F Tato WANG Unavailable Unavailable Shira eBrnal MD Unavailable Unavailable Shira Bernal MD Unavailable Unavailable Shira Bernal MD Unavailable Unavailable Shira Bernal MD Unavailable Unavailable Shira Bernal MD Unavailable Unavailable Shira Bernal MD Unavailable Unavailable Shira Bernal MD Unavailable Unavailable Shira Bernal MD Unavailable Unavailable Shira Bernal MD Unavailable Unavailable Shira Bernal MD Unavailable Unavailable Shira Bernal MD Unavailable Unavailable Shiar Bernal MD Unavailable Unavailable Shira Bernal MD [...] Unavailable Shira Bernal MD Unavailable Unavailable Shira Beranl MD Unavailable Unavailable Shira Bernal MD Unavailable [...] Unavailable MARVIN, J Helene ANP Unavailable Unavailable Henderson, Christopher DO Unavailable Unavailable Kwabena, Christopher DO Unavailable Unavailable Kwabena, Christopher DO Unavailable Unavailable Henderson, Christopher DO Unavailable Unavailable Kwabena, Christopher DO [...] protected by Article 27-F of the [facility] Public Health law. If you continue you may have access to information: Regarding HIV / AIDS; Provided by facilities licensed or operated by the [facility] Office of Mental Health; or Provided by the [facility] Office for People With Developmental Disabilities. If such information is present, then the following [facility] mandated warning applies: This information has [...] law may result in a fine or long-term sentence or both. A general authorization for the release of medical or other information is NOT sufficient authorization for further disc losure. Family History Family Member Name Family Member Gender Family Member Status Date o f Status Description Data Source(s) Unknown Unknown Problem [facility] ([facility]) FATHER, GRANDMOTHER Unknown Female Problem [facility] ([facility]) Unknown Unknown Problem [facility] ([facility] Encounters Encounter Providers Location Date Indications Data Source(s ) Outpatient Attender: Montserrat Bernal MD Physical Therapy 07/18 03:30:00 PM EDT [facility] ([facility] Outpatient Attender: Checo Parikh 06/25/2021 11:00:00 AM EDT [facility] ([facility] ) Outpatient Attender: Montserrat Bernal MD Physical Therapy 03/25 03:30:00 PM EDT [facility] ([facility] ) Outpatient Attender: Helene Quintanilla 03/2021 09:00:00 AM EDT [facility] ([facility] ) Outpatient Attender: Montserrat Bernal MD Physical Therapy 12/17 08:45:00 AM EST [facility] ([facility]) Outpatient Attender: LINSEY Jung/Laura/Ralph/Eric ndmei 10/25/2020 09:10:00 AM EST [facility] ([facility] Outpatient Attender: Montserrat Bernal MD Physical Therapy 10/22 08:45:00 AM EST [facility] ([facility]) Outpatient Attender: Helene Quintanilla 07:15:00 AM EST [facility] ([facility] ) Outpatient Attender: MELISSA URIBE NP Physical Therapy 02:45:00 PM EST [facility] ([facility]) Outpatient Attender: RAGHAV Quintanilla 1 10/17/2019 01:00:00 PM EST [facility] ([facility] ) Outpatient Attender: Tato Quintanilla 1 01:30:00 PM EDT [facility] ([facility] ) Outpatient Attender: Helene Quintanilla 08:30:00 AM EDT [facility] ([facility] ) Immunizations Vaccine Date Status Description Data Source(s) COVID-19 VACCINE Moderna 08/03/2021 12:00:00 AM EDT completed [facility] Vaccine Series Complete: YESThis Data wa s [facility] [employer]. COVID-19 VACCINE Moderna 01/04/2021 12:00:00 AM EDT completed [facility] Vaccine Series Complete: YESThis Data wa s Submitted to [facility] [employer]. COVID-19 VACCINE Moderna 12/07/2020 12:00:00 AM EST completed [facility] Vaccine Series Complete: NOThis Data was Submitted to [facility] [employer]. Influenza, injectable, MDCK, preservative free, sukhdev valent 06/28/2020 08:50:00 AM EDT completed [facility]) Medications Medication Brand Name Start Date Product Form Dose Route Admi nistrative Instructions Pharmacy Instructions Status Indications Reaction Description Data Source(s) Covid-19 vaccine, Unspecified 12/28/2020 12:00:00 AM EDT completed [facility] Medication administered onsite Covid-19 vaccine, Unspecified 11/30/2020 12:00:00 AM EST completed [facility] Medication administered onsite Insulin Lispro 100 UNT/ML Injectable Solution [Humalog] Vika log 08/17/2020 12:00:00 AM EST active M [facility]ENT ([facility]) Cephalexin 500 MG Oral Capsule Cephalexin 08/17/2020 12:00:00 AM EST ORAL completed [facility] ([facility]) Esomeprazole 40 MG Delayed Release Oral Capsule Esomeprazole Magnesium 08/02/2020 12:00:00 AM EDT active [facility] ([facility]) Immunization Adminstration,1 Vaccine/Toxoid 06/28/2020 12:00 :00 AM EDT completed [facility] ([facility]) Medication administered onsite Insulin Lispro 100 UNT/ML Injectable Solution [Humalog] Vika log 06/06/2020 12:00:00 AM EDT completed [facility] ([facility]) Insurance Providers Payer name Policy type / Coverage type Policy ID Covered republican ID Covered republican's relationship to kunz Policy Kunz Plan Information POMCO [id number] WI2 [id number] P[employer] [id number] [id number] [facility] U [id number] Self [id number] [facility] U [id number] Spouse [id number] UMR U [id number] Spouse [id number] [facility] Organization ([facility]) [id number] Family Dependent [id number] [facility] Commercial [id number] Family Dependent [id number] [facility] Health Maintenance Organization (O) [id number] Family Dependent [id number] [facility] Health Maintenance Organization (O) [id number] Family Dependent [id number] [employer] [id number] Family Dependent [id number] [employer] [id number] Family Dependent [id number] [employer] [id number] Family Dependent [id number] [employer] [id number] Family Dependent [id number] [employer] Commercial [id number] Family Dependent UMR [facility] [id number] WI2 [id number] [employer]OM[employer] O [id number] U [id number] Umr Commercial [id number] Family Dependent [id number] [employer] (Old) Commercial [id number] Family Dependent [id number] UMR U [id number] Spouse [id number] Umr [employer] [id number] Family Dependent [id number] Problems, Conditions, and Diagnoses No Information Surgeries/Procedures Procedure Description Date Indications Data Source(s) Diabetic Foot Exam 07/18/2021 12:00:00 AM EDT [facility] ([facility] ) OFFICE OUTPATIENT VISIT 25 MINUTES 07/18/2021 12:00:00 AM EDT [facility] ([facility] ) ECG ROUTINE ECG W/LEAST 12 LDS W/I&R 06/25/2021 12:00: 00 AM EDT [facility] ([facility]) OFFICE OUTPATIENT VISIT 25 MINUTES 06/25/2021 12:00:00 AM EDT [facility] ([facility]) OFFICE OUTPATIENT VISIT 25 MINUTES 03/25/2021 12:00:00 AM EDT [facility] ([facility]) Tangential Biopsy Of Skin, Single Lesion 02/18/2021 12 :00:00 AM EDT [facility] ([facility]) Tangential Each Separate/Additional Lesion 02/18/2021 12:00:00 AM EDT [facility] ([facility]) OFFICE OUTPATIENT VISIT 15 MINUTES 01/15/2021 12:00:00 AM EDT [facility] ([facility]) OFFICE OUTPATIENT VISIT 25 MINUTES 12/17/2020 12:00:00 AM EST [facility] ([facility]) EXC B9 LES MRGN XCP SK TG F/E/E/N/L/M 2.1-3.0CM 2020 12:00:00 AM EST [facility] ([facility] ) OFFICE OUTPATIENT VISIT 25 MINUTES 10/22/2020 12:00:00 AM EST [facility] ([facility]) OFFICE OUTPATIENT VISIT 15 MINUTES 10/03/2020 12:00:00 AM EST [facility] ([facility]) Results ID Date Data Source [id number] 07/18/2021 04:01:00 PM EDT [facility] ([facility]) Name Value Range Interpretation Code Description Data Karen rce(s) Supporting Document(s) Hemoglobin A1c/Hemoglobin.total in Blood 10.2 [facility] ([facility]) Glucose [Mass/volume] in Serum or Plasma 235 [facility] ([facility]) ID Date Data Source [id number] 06/29/2021 08:09:00 AM EDT [facility] ([facility] Name Value Range Interpretation Code Description Data Karen rce(s) Supporting Document(s) Laboratory test finding (navigational concept) Laboratory test result [facility] ([facility]) This nucleic acid amplification test was developed and its performance characteristics determined by [employer] Nucleic acid amplification tests include RT-PCR and [...] test finding (navigational concept) Laboratory test result [facility] ([facility]) ID Date Data Source [id number] 06/25/2021 11:37:00 AM EDT [facility] ([facility]) Name Value Range Interpretation Code Description Data Karen rce(s) Supporting Document(s) Thyrotropin [Units/volume] in Serum or Plasma by Detec tion limit <= 0.05 mIU/L 0.55 uIU/mL 0.36-3.74 [facility] ([facility] ) ID Date Data Source [id number] 06/25/2021 11:37:00 AM EDT [facility] ([facility]) Name Value Range Interpretation Code Description Data Karen rce(s) Supporting Document(s) Cholesterol [Mass/volume] in Serum or Plasma 197 mg/dL 131-200 [facility] ([facility]) Cholesterol in HDL [Mass/volume] in Serum or Plasma 51 mg/dL 35-60 [facility] ([facility]) Triglyceride [Mass/volume] in Serum or Plasma 105 mg/dL 30-150 [facility] ([facility] Cholesterol in LDL [Mass/volume] in Serum or Plasma by calcu lation 125 CALC 50-159 [facility] ([facility]) ID Date Data Source [id number] 06/25/2021 11:37:00 AM EDT [facility] ([facility]) Name Value Range Interpretation Code Description Data Karen rce(s) Supporting Document(s) Glucose [Mass/volume] in Serum or Plasma 109 mg/dL 74-99 [facility] ([facility]) 100-125 mg/dL PRE-DIABETES/FASTING >126 mg/dL DIABETES/FASTING Urea nitrogen [Mass/volume] in Serum or Plasma 13 mg/dL 7-18 [facility] ([facility]) Creatinine 0.8 mg/dL 0.6-1.3 [facility] Sodium [Moles/volume] in Serum or Plasma 142 meq/L 136-145 [facility] ([facility]) Carbon dioxide, total [Moles/volume] in Serum or Plasma 28 meq/L 21 -32 [facility] ([facility]) Potassium [Moles/volume] in Serum or Plasma 4.6 meq/L 3.5-5.1 [facility] ([facility]) Chloride [Moles/volume] in Serum or Plasma 106 meq/L 98-107 [facility] ([facility]) Alkaline phosphatase isoenzyme [Units/volume] in Serum or Pl asma 99 mg/dL 46-116 [facility] ([facility]) Calcium [Mass/volume] in Serum or Plasma 9.1 mg/dL 8.5-10.1 [facility] ([facility]) Alanine aminotransferase [Enzymatic activity/volume] in Seru m or Plasma 19 U/L 12-78 [facility] ([facility]) Aspartate aminotransferase [Enzymatic activity/volume] in Serum or Plasma 19 U/L 15-37 [facility] ([facility] ) Total Bilirubin 0.3 mg/dL 0.2-1.0 [facility] ([facility]) A/G Ratio 1.20 CALC 1.00-1.90 [facility]) Proteinase 3 Ab [Units/volume] in Serum 6.6 g/dL 6.4-8.2 [facility] ([facility]) Albumin [Mass/volume] in Serum or Plasma 3.6 g/dL 3.4-5.0 [facility] ([facility]) Glomerular filtration rate/1.73 sq M pre dicted among blacks [Volume Rate/Area] in Serum or Plasma by Creatinine-based formula (MDRD) Laboratory test result [facility] ([facility]) <content>CHRONIC KIDNEY DISEASE STAGING PER NKF</content>
<content></content>
<content>STAGE I & II GFR >= 60 NORMAL TO MILDLY DECREASED</content>
<content>STAGE III GFR 30-59 MODERATELY DECREASED</content>
<content>STAGE IV GFR 15-29 SEVERELY DECREASED</content>
<content>STAGE V GFR <15 VERY LITTLE GFR LEFT</content>
<content>ESRD GFR <15 ON ANTI TANK MISSILEMAN</content>
<content></content> Glomerular filtration rate/1.73 sq M pre dicted among non-blacks [Volume Rate/Area] in Serum or Plasma by Creatinine-based formula (MDRD) Laboratory test result [facility] ) ID Date Data Source [id number] 06/25/2021 11:37:00 AM EDT [facility]) Name Value Range Interpretation Code Description Data Karen rce(s) Supporting Document(s) Hemoglobin A1c/Hemoglobin.total in Blood 10.0 % [facility]) Lab Result Notes: Pre-Diabetes 5.7 - 6.4 % Diabetes = or > 6.5% Glucose mean value [Mass/volume] in Blood Estimated fr om glycated hemoglobin 240 mg/dL 60-110 [facility] ) ID Date Data Source [id number] 03/25/2021 03:37:00 PM EDT [facility] ([facility]) Name Value Range Interpretation Code Description Data Karen rce(s) Supporting Document(s) Hemoglobin A1c/Hemoglobin.total in Blood 9 [facility] ([facility]) Glucose [Mass/volume] in Serum or Plasma 224 [facility]) ID Date Data Source [id number] 02/18/2021 03:00:00 PM EDT [facility] Name Value Range Interpretation Code Description Data Karen rce(s) Supporting Document(s) [facility] Laboratory test result [facility] ([facility]) RESULTS DIAGNOSIS DIAGNOSIS: A. POSTERIOR NECK- LITHOGRAPH DESIGNER'S NODULE B. ANT LEFT CHEST- LICHEN SIMPLEX CHRONICUS RESULTS SIGNATURE Cb Gutierrez MD Electronic Signature: 21 FEB 2021 01:57 PM CLINICAL INFORMATION CLINICAL INFORMATION A. ULCERATED LESION; B. IRREGULAR LESION, BROWN SPECIMEN DATA GROSS DESCRIPTION A. Received in 10% buffered formalin is a shave biopsy of skin measuring [id number]. The specimen is quadrisected and entirely submitted in one cassette. B. Received in 10% buffered formalin is a punch biopsy of skin measuring [id number]. The specimen is bisected and entirely submitted [...] vessels in the superficial dermis. CPT Codes 94202d1 The CPT codes provided are for information purposes only, and are based on AMA guidelines without regard to specific payor requirements. END OF REPORT FINAL REPORT-[facility] FINAL [facility],[address] [place] [address],[facility] [address] [address]. [phone]. [phone]. Anthropologist Physical: Waqas Candelaria MD [facility] [id number], [place] [id number], [place] [id number] Laboratory test finding (navigational concept) Laboratory test result [facility] ([facility]) ID Date Data Source [id number] 12/17/2020 10:09:00 AM EST [facility] ([facility]) Name Value Range Interpretation Code Description Data Karen rce(s) Supporting Document(s) Glucose [Mass/volume] in Serum or Plasma 122 [facility] ([facility]) Hemoglobin A1c/Hemoglobin.total in Blood 7.4 [facility] ([facility]) ID Date Data Source [id number] 10/25/2020 11:38:00 AM EST [facility] ([facility] ) Name Value Range Interpretation Code Description Data Karen rce(s) Supporting Document(s) Surgical pathology study Laboratory test result [facility] ([facility], ) FINAL DIAGNOSIS Skin, right cheek, excision: 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 Note: This findings are most consistent with a keratosis, such as a seborrheic keratosis, with superimposed features of prurigo nodularis. A small infundibular cyst is also noted. See [facility] [id number] 11/06/2020 - 1013 CLINICAL DIAGNOSIS Lesion right cheek 10/26/2020 - 1403 GROSS DIAGNOSIS Received in formalin labeled "right cheek" and consists of a fragment of skin, 3 x 1 x 0.6 cm. All in two. -OA 10/26/2020 - 1404 PRELIMINARY DIAGNOSIS 11/06/2020 - 1015 Signed BERTA ELI MD 10/30/2020 0909 (Prelim) Signed BERTA ELI MD 11/06/2020 1015 ID Date Data Source [id number] 10/03/2020 09:01:00 AM EST [facility] ([facility]) Name Value Range Interpretation Code Description Data Karen rce(s) Supporting Document(s) Hemoglobin A1c/Hemoglobin.total in Blood 7.5 % [facility] ([facility]) Lab Result Notes: Pre-Diabetes 5.7 - 6.4 % Diabetes = or > 6.5% Glucose mean value [Mass/volume] in Blood Estimated fr om glycated hemoglobin 169 mg/dL 60-110 [facility] ([facility]) ID Date Data Source [id number] 10/03/2020 09:01:00 AM EST [facility] ([facility]) Name Value Range Interpretation Code Description Data Karen rce(s) Supporting Document(s) Thyrotropin [Units/volume] in Serum or Plasma by Detec tion limit <= 0.05 mIU/L 1.94 uIU/mL 0.36-3.74 [facility] ([facility]) ID Date Data Source [id number] 10/03/2020 09:01:00 AM EST [facility] ([facility]) Name Value Range Interpretation Code Description Data Karen rce(s) Supporting Document(s) Thyrotropin [Units/volume] in Serum or Plasma by Detec tion limit <= 0.05 mIU/L 1.94 uIU/mL 0.36-3.74 [facility] ([facility] ) ID Date Data Source [id number] 10/03/2020 09:01:00 AM EST [facility] ([facility]) Name Value Range Interpretation Code Description Data Karen rce(s) Supporting Document(s) Hemoglobin A1c/Hemoglobin.total in Blood 7.5 % [facility] ([facility] Lab Result Notes: Pre-Diabetes 5.7 - 6.4 % Diabetes = or > 6.5% Glucose mean value [Mass/volume] in Blood Estimated fr om glycated hemoglobin 169 mg/dL 60-110 [facility] ([facility] ) ID Date Data Source [id number] 10/03/2020 09:01:00 AM EST [facility] ([facility]) Name Value Range Interpretation Code Description Data Karen rce(s) Supporting Document(s) Hemoglobin A1c/Hemoglobin.total in Blood Laboratory test result [facility] ([facility] Thyrotropin [Units/volume] in Serum or Plasma by Detec tion limit <= 0.05 mIU/L Laboratory test result [facility] ([facility]) ID Date Data Source [id number] 09/21/2020 04:02:00 PM EST [facility] ([facility]) Name Value Range Interpretation Code Description Data Karen rce(s) Supporting Document(s) Hemoglobin A1c/Hemoglobin.total in Blood 7.4 [facility] ([facility]) Glucose [Mass/volume] in Serum or Plasma 76 [facility] ([facility]) ID Date Data Source [id number] 07/28/2020 07:58:00 AM EDT [facility] ([facility]) Name Value Range Interpretation Code Description Data Karen rce(s) Supporting Document(s) Coronavirus Covid-19 Laboratory test result [facility] ([facility]) .~.~[id number] ID Date Data Source [id number] 07/10/2020 10:02:00 PM EDT [facility] ([facility]) Name Value Range Interpretation Code Description Data Karen rce(s) Supporting Document(s) Bedside Glucose 315 mg/dL 70-105 [facility] ([facility]) ID Date Data Source [id number] 07/10/2020 08:56:00 PM EDT [facility] ([facility]) Name Value Range Interpretation Code Description Data Karen rce(s) Supporting Document(s) Glucose, Fasting 276 mg/dL 70-100 [facility] ([facility]) Blood Urea Nitrogen 22 mg/dL 7-18 [facility] ([facility]) Glomerular Filtration Rate Laboratory test result [facility] ([facility]) <content>Units are mL/min/1.73 m2</content>
<content></content>
<content>Chronic Kidney Disease Staging per NKF:</content>
<content></content>
<content>Stage I & II GFR >=60 Normal to Mildly Decreased</content>
<content>Stage III GFR 30- 59 Moderately Decreased</content>
<content>Stage IV GFR 15-29 Severely Decreased</content>
<content>Stage V GFR <15 Very Little GFR Left</content>
<content>ESRD GFR <15 on ANTI TANK MISSILEMAN</content>
<content></content> Creatinine For GFR 0.94 mg/dL 0.70-1.30 [facility] ([facility]) Carbon Dioxide Level 19 meq/L 21-32 [facility] ([facility]) Potassium Serum 4.2 meq/L 3.5-5.1 [facility] ([facility]) Sodium Level 135 meq/L 136-145 [facility] ([facility]) Chloride Level 106 meq/L 98-107 [facility] ([facility]) Anion Gap 10 meq/L 8-16 [facility]) Calcium Level 8.6 mg/dL 8.5-10.1 [facility] ([facility]) ID Date Data Source [id number] 07/10/2020 08:56:00 PM EDT [facility] ([facility]) Name Value Range Interpretation Code Description Data Karen rce(s) Supporting Document(s) Acetone [Mass/volume] in Serum or Plasma 30.87 mg/dL [facility] ([facility]) ID Date Data Source [id number] 07/10/2020 08:36:00 PM EDT [facility] ([facility]) Name Value Range Interpretation Code Description Data Karen rce(s) Supporting Document(s) Bedside Glucose 287 mg/dL 70-105 [facility] ([facility]) ID Date Data Source [id number] 07/10/2020 07:24:00 PM EDT [facility] ([facility]) Name Value Range Interpretation Code Description Data Karen rce(s) Supporting Document(s) Bedside Glucose 374 mg/dL 70-105 [facility] ([facility]) ID Date Data Source [id number] 07/10/2020 06:36:00 PM EDT [facility] Name Value Range Interpretation Code Description Data Karen rce(s) Supporting Document(s) Bedside Glucose 469 mg/dL 70-105 [facility] ([facility]) ID Date Data Source [id number] 07/10/2020 06:19:00 PM EDT [facility] ([facility]) Name Value Range Interpretation Code Description Data Karen rce(s) Supporting Document(s) CPK Creatine Phosphokinase 112 U/L 39-308 [facility] ([facility]) MB/CK Relative Index 2.41 [facility] ([facility]) <content>DIAGNOSIS CRITERIA</content>
<content>MMB ng/ml Relative Index (RI)</content>
<content>NON-AMI < or = 5 N/A</content>
<content>LEMUS ZONE > 5 < or = 4</content>
<content>AMI > 5 > 4</content>
<content></content> Troponin I Laboratory test result [facility] ([facility]) <content>Troponin I Reference Interval f or [employer]ens [place] LOCI:</content>
<content></content>
<content>99th Percentile= 0.00-0.045 ng/ml</content>
<content></content>
<content>Risk Stratification:</content>
<content><= 0.10 ng/ml Decreased Risk for Adverse Clinical</content>
<content>Events.</content>
<content>0.10-1.50 ng/ml Increased Risk for Adverse Clinical</content>
<content>Events. Evaluation of additional</content>
<content>criterion and/or repeat testing in 2-6</content>
<content>hours is suggested to rule out myocardial</content>
<content>damage.</content>
<content>>= 1.50 ng/ml Indicative of Myocardial Injury.</content>
<content></content> CK-MB Value Mass 2.7 ng/mL [facility] ([facility]) ID Date Data Source [id number] 07/10/2020 06:19:00 PM EDT [facility] ([facility]) Name Value Range Interpretation Code Description Data Karen rce(s) Supporting Document(s) Ast/Sgot 16 U/L 7-37 [facility] ([facility]) Bilirubin,Total 1.2 mg/dL 0.2-1.0 [facility] ([facility]) Alt/SGPT 20 U/L 12-78 [facility] ([facility] [place]) Alkaline Phosphatase 101 U/L 45-117 [facility] ([facility] Bilirubin,Direct 0.4 mg/dL 0.0-0.2 [facility] ([facility]) Albumin/Globulin Ratio 1.1 [facility] ([facility] [place] [facility]) Total Protein 6.7 GM/DL 6.4-8.2 [facility] ([facility]) Albumin 3.5 GM/DL 3.2-5.2 [facility] ([facility] [place]) ID Date Data Source [id number] 07/10/2020 06:19:00 PM EDT [facility] ([facility] Name Value Range Interpretation Code Description Data Karen rce(s) Supporting Document(s) Phosphate [Moles/volume] in Serum or Plasma 4.7 mg/dL 2.5-4.9 [facility] ([facility]) [id number] FIRST TUBE WAS HEMOLYZED [id number] FIRST TUBE WAS HEMOLYZED Acetone [Mass/volume] in Serum or Plasma 43.31 mg/dL [facility] ([facility]) [id number] FIRST TUBE WAS HEMOLYZED [id number] FIRST TUBE WAS HEMOLYZED Lipoprotein lipase [Enzymatic activity/volume] in Serum or Plasm a 16 U/L 73-393 [facility] ([facility]) [id number] FIRST TUBE WAS HEMOLYZED [id number] FIRST TUBE WAS HEMOLYZED Magnesium [Moles/volume] in Serum or Plasma 2.0 mg/dL 1.8-2.4 [facility] ([facility]) [id number] FIRST TUBE WAS HEMOLYZED [id number] FIRST TUBE WAS HEMOLYZED Osmolality of Serum or Plasma 306 MOSM/KG 275-295 [facility] ([facility]) [id number] FIRST TUBE WAS HEMOLYZED [id number] FIRST TUBE WAS HEMOLYZED ID Date Data Source [id number] 07/10/2020 05:49:00 PM EDT [facility] ([facility]) Name Value Range Interpretation Code Description Data Karen rce(s) Supporting Document(s) Laboratory test finding (navigational concept) 51.0 % 38.0-51.0 [facility] ([facility]) Laboratory test finding (navigational concept) 489 mg/dL 70-105 [facility] ([facility]) Laboratory test finding (navigational concept) 134 meq/L 136-145 [facility] ([facility]) Laboratory test finding (navigational concept) 5.0 mg/dL 4.5-5.3 [facility] ([facility]) Laboratory test finding (navigational concept) 96 meq/L 98-109 [facility] ([facility]) Laboratory test finding (navigational concept) 4.4 meq/L 3.5-5.1 [facility] ([facility]) Laboratory test finding (navigational concept) 0.8 mg/dL 0.6-1.3 [facility] ([facility]) Laboratory test finding (navigational concept) 22 mg/dL 8-26 [facility] ([facility]) Laboratory test finding (navigational concept) 16.0 MM/L 23.0-27.0 [facility] ([facility]) ID Date Data Source [id number] 07/10/2020 05:34:00 PM EDT [facility] ([facility]) Name Value Range Interpretation Code Description Data Karen rce(s) Supporting Document(s) Venous Partial Pressure O2 143.9 mmHg 30.0-50.0 [facility] ([facility]) Venous PH 7.344 units 7.330-7.430 [facility] ([facility] Venous Partial Pressure Co2 25.5 mmHg 38.0-50.0 [facility] ([facility]) Venous Hco3 13.6 meq/L 23.0-27.0 [facility] ([facility]) Venous Base Excess -10.0 [facility] ([facility]) Venous Total Co2 14.4 meq/L 24.0-28.0 [facility] ([facility]) Venous Standard Hco3 16.7 meq/L [facility] ( [facility]) Venous O2 Saturation 99.1 % 60.0-80.0 [facility] ([facility]) ID Date Data Source [id number] 07/10/2020 05:34:00 PM EDT [facility] ([facility] Name Value Range Interpretation Code Description Data Karen rce(s) Supporting Document(s) Hemoglobin A1c 7.2 % [facility] ([facility]) <content>REFERENCE RANGES:</content><br/ ><content></content>
<content><=5.6% NORMAL</content>
<content>5.7-6.4% SUGGESTS IMPAIRED GLUCOSE METABOLISM/PREDIABETIC</content>
<content>>= 6.5% ABNORMAL</content>
<content></content> Estimated Average Glucose 160 mg/dL 60-110 [facility] ([facility]) ID Date Data Source [id number] 07/10/2020 05:34:00 PM EDT [facility] ([facility] Name Value Range Interpretation Code Description Data Karen rce(s) Supporting Document(s) Color, Urine RFX Laboratory test result [facility] ([facility]) Appearance, Urine RFX Laboratory test result [facility] ([facility]) Specific Hope Ur Auto RFX 1.028 1.002-1.035 [facility] ([facility]) PH,Urine RFX 5.0 units 5.0-9.0 [facility] ([facility]) Protein, Urine Auto RFX Laboratory test result [facility] ([facility]) Bilirubin, Urine Auto RFX Laboratory test result [facility] ([facility]) Urobilinogen, Urine Auto RFX 0.2 mg/dL 0.0-2.0 [facility] ([facility]) Ketone, Urine Auto RFX Laboratory test result [facility] ([facility]) Glucose, Urine (Ua) Auto [facility]X [facility] Blood, Urine Blood RFX Laboratory test result [facility] ([facility]) Leukocyte Esterase Ur Auto RFX Laboratory test result [facility] ([facility]) Nitrite, Urine Auto RFX Laboratory test result [facility] ([facility]) WBC, Urine Auto RFX 0 /HPF 0-3 [facility] ([facility]) Bacteria, Urine Auto RFX Laboratory test result [facility] ([facility]) RBC, Urine Auto RFX 0 /HPF 0-3 [facility] ([facility]) Hyaline Cast, Urine Auto RFX 0 /LPF 0-1 M [facility] ([facility]) Squam Epithelial Cell Ur Aurfx 0 /HPF 0-6 [facility] ([facility]) ID Date Data Source [id number] 07/10/2020 05:26:00 PM EDT [facility] ([facility]) Name Value Range Interpretation Code Description Data Karen rce(s) Supporting Document(s) White Blood Count 15.5 10 4.0-10.0 [facility] ([facility]) Red Blood Count 4.64 10 4.30-6.10 [facility] ([facility]) Mean Corpuscular Volume 94.0 fl 80.0-96.0 [facility] ([facility]) Hemoglobin 15.1 g/dL 13.5-17.5 [facility] Hematocrit 43.6 % 42.0-52.0 [facility] Platelet Count, Automated 324 10 150-450 [facility] NT ([facility]) Mean Corpuscular HGB Conc 34.6 g/dL 32.0-36.5 [facility] NT ([facility]) Mean Corpuscular Hemoglobin 32.5 pg 27.0-33.0 IN [facility] ([facility]) Red Cell Distribution Width 11.7 % 11.5-14.5 [facility] ([facility]) Lymph % 8.6 % 24.0-44.0 [facility] [facility] [place] % 4.1 % 0.0-5.0 [facility] [facility] Neutrophils % 85.8 % 36.0-66.0 [facility] ([facility]) Baso % 0.3 % 0.0-1.0 [facility] [facility] Immature Granulocyte % 0.6 % 0-3.0 [facility] ([facility]) Eos % 0.6 % 0.0-3.0 [facility] [facility] [place] # 0.6 10 0.0-0.8 [facility] ([place] [facility]) Nucleated Red Blood Cell % 0.0 % 0-0 [facility] ([facility]) Lymph # 1.3 10 1.5-5.0 [facility] [facility] Neutrophils # 13.3 10 1.5-8.5 [facility] ([facility]) Eos # 0.1 10 0.0-0.5 [facility] [facility] Baso # 0.0 10 0.0-0.2 [facility] [facility] ID Date Data Source [id number] 07/10/2020 05:24:00 PM EDT [facility] ([facility]) Name Value Range Interpretation Code Description Data Karen rce(s) Supporting Document(s) Bedside Glucose 471 mg/dL 70-105 [facility] ([facility]) ID Date Data Source [id number] 06/28/2020 09:05:00 AM EDT [facility] ([facility]) Name Value Range Interpretation Code Description Data Karen rce(s) Supporting Document(s) Cholesterol [Mass/volume] in Serum or Plasma 208 mg/dL 131-200 [facility] ([facility]) Cholesterol in LDL [Mass/volume] in Serum or Plasma by calcu lation 131 CALC 50-159 [facility] ([facility]) Cholesterol in HDL [Mass/volume] in Serum or Plasma 57 mg/dL 35-60 [facility] ([facility]) Triglyceride [Mass/volume] in Serum or Plasma 98 mg/dL 30-150 [facility] ([facility]) ID Date Data Source [id number] 06/19/2020 09:30:00 AM EDT [facility]) Name Value Range Interpretation Code Description Data Karen rce(s) Supporting Document(s) Coronavirus Covid-19 Laboratory test result [facility]) This nucleic acid amplification test was developed and its performance characteristics determined by [employer] Nucleic acid amplification tests include PCR and [...] smoker completed Patient is a former smoker [facility] ([facility]) Vital Signs ID Date Data Source [id number] Name Value Range Interpretation Code Description Data Source(s) Oxygen saturation in Arterial blood by Pulse oximetry 98 % 98 % [facility] ([facility]) Systolic blood pressure 124 mm[Hg] 124 mm[Hg] [facility] Diastolic blood pressure 88 mm[Hg] 88 mm[Hg] [facility] ([facility]) Heart rate 129 /min 129 /min [facility] ([facility]) Body height 70 [in_i] 70 [in_i] [facility] ([facility]) 5'10" Body weight 191.50 [lb_av] 191.50 [lb_av] [facility] Body mass index (BMI) [Ratio] 27.5 kg/m2 27.5 k g/m2 [facility] ([facility]) Systolic blood pressure 126 mm[Hg] 126 mm[Hg] M [facility] ([facility]) Heart rate 130 /min 130 /min [facility] ([facility]) Body height 70.5 [in_i] 70.5 [in_i] [facility] ([facility]) 5'50" Body weight 197.00 [lb_av] 197.00 [lb_av] [facility] T ([facility]) Oxygen saturation in Arterial blood by Pulse oximetry 99 % 99 % [facility] ([facility]) Body mass index (BMI) [Ratio] 27.9 kg/m2 27.9 k g/m2 [facility] ([facility]) Diastolic blood pressure 88 mm[Hg] 88 mm[Hg] [facility] ([facility]) Body mass index (BMI) [Ratio] 27.7 kg/m2 27.7 k g/m2 [facility] ([facility] ) Oxygen saturation in Arterial blood by Pulse oximetry 98 % 98 % [facility] ([facility] ) Systolic blood pressure 124 mm[Hg] 124 mm[Hg] M [facility] ([facility] ) Heart rate 77 /min 77 /min [facility] ([facility] Body temperature 96.8 [degF] 96.8 [degF] [facility] ([facility] Body height 70 [in_i] 70 [in_i] [facility] ([facility] ) 5'10" Body weight 193.25 [lb_av] 193.25 [lb_av] [facility] T ([facility] ) Diastolic blood pressure 76 mm[Hg] 76 mm[Hg] [facility] ([facility] ) Body height 70.5 [in_i] 70.5 [in_i] [facility] ([facility]) 5'10.50" Heart rate 117 /min 117 /min [facility] ([facility]) Oxygen saturation in Arterial blood by Pulse oximetry 97 % 97 % [facility] ([facility]) Body weight 200.00 [lb_av] 200.00 [lb_av] [facility] T ([facility]) Body mass index (BMI) [Ratio] 28.3 kg/m2 28.3 k g/m2 [facility] ([facility]) Systolic blood pressure 112 mm[Hg] 112 mm[Hg] M [facility] ([facility]) Diastolic blood pressure 80 mm[Hg] 80 mm[Hg] [facility] ([facility]) Heart rate 106 /min 106 /min [facility] ([facility]) Body height 70.5 [in_i] 70.5 [in_i] [facility] ([facility]) 5'10.50" Body weight 196.00 [lb_av] 196.00 [lb_av] [facility] T ([facility]) Body mass index (BMI) [Ratio] 27.7 kg/m2 27.7 k g/m2 [facility] ([facility]) Body mass index (BMI) [Ratio] 28.9 kg/m2 28.9 k g/m2 [facility] ([facility] ) Oxygen saturation in Arterial blood by Pulse oximetry 98 % 98 % [facility] ([facility] ) Systolic blood pressure 110 mm[Hg] 110 mm[Hg] M [facility] ([facility] ) Diastolic blood pressure 76 mm[Hg] 76 mm[Hg] [facility] ([facility] ) Heart rate 119 /min 119 /min [facility] ([facility] ) Body temperature 96.8 [degF] 96.8 [degF] [facility] ([facility] ) Body height 70 [in_i] 70 [in_i] [facility] ([facility] ) 5'10" Body weight 201.50 [lb_av] 201.50 [lb_av] [facility] T ([facility]) Body weight 198.12 [lb_av] 198.12 [lb_av] [facility] T ([facility] ) [place] body weight 172 [lb_av] 172 [lb_av] [facility] T ([facility], ) Body mass index (BMI) [Ratio] 27.6 kg/m2 27.6 k g/m2 [facility] ([facility], ) Body weight 89.870 kg 89.870 kg [facility] ([facility] ) Body surface area Derived from formula 2.10 m2 2.10 m2 [facility] ([facility]) Systolic blood pressure 121 mm[Hg] 121 mm[Hg] M [facility] ([facility]) Diastolic blood pressure 84 mm[Hg] 84 mm[Hg] [facility] ([facility]) Heart rate 112 /min 112 /min [facility] ([facility]) Body temperature 98.4 [degF] 98.4 [degF] [facility] ([facility]) Body height 71 [in_i] 71 [in_i] [facility] ([facility]) 5'11" Systolic blood pressure 136 mm[Hg] 136 mm[Hg] [facility] ([facility]) Diastolic blood pressure 72 mm[Hg] 72 mm[Hg] [facility] ([facility]) Heart rate 100 /min 100 /min [facility] ([facility]) Body weight 198.00 [lb_av] 198.00 [lb_av] [facility] Oxygen saturation in Arterial blood by Pulse oximetry 98 % 98 % [facility] ([facility]) Oxygen saturation in Arterial blood by Pulse oximetry 97 % 97 % [facility] ([facility]) Body mass index (BMI) [Ratio] 28.5 kg/m2 28.5 k g/m2 [facility] ([facility]) Body weight 198.44 [lb_av] 198.44 [lb_av] [facility] ([facility]) Body height 70 [in_i] 70 [in_i] [facility] ([facility]) 5'10" Body temperature 97.8 [degF] 97.8 [degF] [facility] ([facility]) Heart rate 110 /min 110 /min [facility] ([facility]) Diastolic blood pressure 70 mm[Hg] 70 mm[Hg] [facility] ([facility]) Systolic blood pressure 120 mm[Hg] 120 mm[Hg] [facility] Systolic blood pressure 116 mm[Hg] 116 mm[Hg] [facility]) Diastolic blood pressure 70 mm[Hg] 70 mm[Hg] [facility] ([facility]) Heart rate 102 /min 102 /min [facility] Body height 70.5 [in_i] 70.5 [in_i] [facility] ([facility]) 5'10.50" Body weight 191.00 [lb_av] 191.00 [lb_av] [facility] T ([facility]) Oxygen saturation in Arterial blood by Pulse oximetry 97 % 97 % [facility] ([facility]) [facility] Body mass index (BMI) [Ratio] 27.0 kg/m2 27.0 k g/m2 [facility] ([facility]) Heart rate 68 /min 68 /min [facility] Systolic blood pressure 122 mm[Hg] 122 mm[Hg] M EDENT ([facility]) Diastolic blood pressure 68 mm[Hg] 68 mm[Hg] [facility] ([facility]) Body weight 193.00 [lb_av] 193.00 [lb_av] [facility] ([facility]) Body mass index (BMI) [Ratio] 27.3 kg/m2 27.3 k g/m2 [facility] ([facility]) Body height 70.5 [in_i] 70.5 [in_i] [facility] ([facility]) 5'10.50" Systolic blood pressure 120 mm[Hg] 120 mm[Hg] [facility] Diastolic blood pressure 70 mm[Hg] 70 mm[Hg] [facility] ([facility]) Heart rate 72 /min 72 /min [facility] ([facility]) Body height 70.5 [in_i] 70.5 [in_i] [facility] ([facility]) 5'10.50" Body weight 193.00 [lb_av] 193.00 [lb_av] [facility] T ([facility]) Oxygen saturation in Arterial blood by Pulse oximetry 98 % 98 % [facility] ([facility]) Body mass index (BMI) [Ratio] 27.3 kg/m2 27.3 k g/m2 [facility] ([facility])
[2021-08-17] MEDS ORDERED: ONDANSETRON 4MG/2ML VIAL IV ONE (15:00)
[2021-08-17 15:04] LABS: VENOUS BASE EXCESS -12.4 (-2.0-2.0); VENOUS HCO3 12.3 MEQ/L (23.0-27.0); VENOUS O2 SATURATION 80.7 % (60.0-80.0); VENOUS PARTIAL PRESSURE CO2 26.8 mmHg (38.0-50.0); VENOUS PARTIAL PRESSURE O2 46.4 mmHg (30.0-50.0); VENOUS PH 7.279 UNITS (7.330-7.430); VENOUS STANDARD HCO3 14.8 MEQ/L; VENOUS TOTAL CO2 13.1 MEQ/L (24.0-28.0)
[2021-08-17] MEDS ORDERED: INSULIN REGULAR IN 0.9 % NACL 100 UNIT in IV 1 EA IV SCH ×10 (15:10→18:25)
[2021-08-17] MEDS ORDERED: HumuLIN R (REGULAR) INSULIN (NovoLIN R) **100U/ML** PER UNIT IV ONE (15:10)
[2021-08-17] MEDS ORDERED: INSULIN IV RATE CHANGE DOCUMENTATION ML/HR XX SCH ×2 (15:10→17:45)
[2021-08-17 15:16] LABS: HEMATOCRIT 50.1 % (42.0-52.0); HEMOGLOBIN 17.3 g/dl (13.5-17.5); MEAN CORPUSCULAR HEMOGLOBIN 31.5 pg (27.0-33.0); MEAN CORPUSCULAR HGB CONC 34.5 g/dl (32.0-36.5); MEAN CORPUSCULAR VOLUME 91.3 fl (80.0-96.0); PLATELET COUNT, AUTOMATED 363 10^3/uL (150-450); RED BLOOD COUNT 5.49 10^6/uL (4.30-6.10)
[2021-08-17] MEDS ORDERED: ISOVUE-370 76% 100ML VIAL As Ordered ONE (15:26)
--- NOTE | 2021-08-17 15:28 | REP ---
INDICATION: DKA. COMPARISON: 11/10/2015, 07/27/2014 TECHNIQUE: AP portable seated exam. FINDINGS: The lung armenta are well inflated without infiltrate or effusion. The CP angle in the right is sharply defined on the left is partially excluded from the field of view but no large effusion, lateral pleural thickening or apical scarring. There is a small nodule in the left upper lung zone abutting the medial aspect of the anterior 1st rib and unchanged dating back to 2013. Heart, mediastinal and hilar contours are normal. Aorta and airway intact. Hilar contour symmetric and normal. Bones are unremarkable. No free air under the diaphragm. IMPRESSION: 1. No acute cardiopulmonary change. Stable chest from 2016. <Electronically signed by Cyrus Bell > 08/17/21 [id number]
[2021-08-17 15:40] LABS: OSMOLALITY SERUM 330 MOSM/KG (275-295)
[2021-08-17 15:52] LABS: ACETONE/KETONE > 46.00 MG/DL (<2.81); ALBUMIN 4.4 GM/DL (3.2-5.2); ALT/SGPT 21 U/L (12-78); BILIRUBIN,DIRECT 0.1 MG/DL (0.0-0.2); BLOOD UREA NITROGEN 24 MG/DL (7-18); CALCIUM LEVEL 10.2 MG/DL (8.5-10.1); CARBON DIOXIDE LEVEL 10 MEQ/L (21-32); CHLORIDE LEVEL 97 MEQ/L (98-107); CREATININE FOR GFR 1.36 MG/DL (0.70-1.30); FREE T4 1.63 NG/DL (0.76-1.46); GLOMERULAR FILTRATION RATE 59.3 (>60); GLUCOSE, FASTING 579 MG/DL (70-100); LIPASE 30 U/L (73-393); MAGNESIUM LEVEL 2.2 MG/DL (1.8-2.4); PHOSPHORUS LEVEL 6.4 MG/DL (2.5-4.9); SODIUM LEVEL 133 MEQ/L (136-145); TOTAL PROTEIN 8.4 GM/DL (6.4-8.2)
[2021-08-17 16:01] LABS: HEMOGLOBIN A1c 10.9 %
--- NOTE | 2021-08-17 16:07 | REP ---
INDICATION: abdl pain, wbc elev, dka. COMPARISON: None. TECHNIQUE: Bolus 100 mL Isovue 370 scanning through the abdomen pelvis with coronal and sagittal reconstructions. FINDINGS: CT abdomen: Lung bases are clear. Heart is not enlarged there is no pericardial thickening or effusion. There is a small hiatal hernia. Liver is not enlarged. The right hepatic lobe there is the subcapsular bilobed lesion hypodense to the hand sing parenchyma which has CT attenuation value of the 38 HU. It measures 2.6 x 1.6 cm. I do not see any definite rim enhancement around it. The similar density 11 mm focus subcapsular along the posterior margin liver near the gallbladder fossa. This is seen on image 43 of series 201 and 31 of series 202. One more 10 mm hypodense nodule on image 49 of series 201 and 37 of series 202. These do not clearly define simple hepatic cysts. None of them have enhancing margins. No intrahepatic biliary dilatation, other hepatic lesions or adjacent ascites. The gallbladder shows no calcified stone, mass or wall thickening. Pancreas shows no mass, ductal dilatation or peripancreatic edema/fluid. Adrenal glands are normal. Kidneys show symmetric enhancement without mass, stone, cyst or hydronephrosis. No hydroureter or ureteral stone. Spleen not enlarged shows no focal lesion. There is a small Bochdalek's hernia along the posteromedial left diaphragm as a benign finding. The bones are grossly intact. With visualized spine and ribs unremarkable. No ascites, perforation or free air. The aorta is without aneurysm. No periaortic, mesenteric or other retroperitoneal pathologic sized lymphadenopathy. CT pelvis: The bony sacrum, SI joints pelvis and hips show minor degenerative change without destructive lesion. Bladder is adequately filled without wall thickening, mass or stone. No dilated distal ureter or ureteral stone. Prostate enlarged indenting bladder base. There are calcifications in the seminal vesicles consistent with history of diabetes. Abdominal and pelvic portions of colon show the colon collapsed and without significant diverticulosis but with some mild wall thickening. I do not see inflammatory changes in the pericolonic fat but the wall thickness does suggest possible mild colitis. Please correlate clinically. Small bowel loops grossly intact. Appendix is seen and normal. No ventral or inguinal hernia nor pathologic sized inguinal adenopathy. IMPRESSION: 1. Colon is collapsed and there is subtle wall thickening without pericolonic inflammatory changes in the fat. Nevertheless, mild colitis should be considered and correlated clinically. 2. The liver has 3 low-density lesions which are not simple cysts by attenuation values. Hepatic ultrasound may be helpful as next step in their evaluation. 3. Appendix normal. No abdominal or pelvic ascites, adenopathy, perforation or free air. Gallbladder, pancreas, adrenal glands, kidneys/ureters/bladder and spleen all unremarkable. 4. Lung bases clear. Small hiatal hernia. Bones unremarkable. <Electronically signed by Cyrus Bell > 08/17/21 [id number]
[2021-08-17 16:29] LABS: ABG BASE EXCESS -15.4 (-2.0-2.0); ABG HCO3 11.3 MEQ/L (22.0-26.0); ABG O2 SATURATION 98.1 % (95.0-99.0); ABG PARTIAL PRESSURE CO2 30.1 mmHg (35.0-45.0); ABG PARTIAL PRESSURE O2 112.9 mmHg (75.0-100.0); ABG STANDARD HCO3 13.1 MEQ/L (22.0-26.0); ABG TOTAL CO2 12.2 MEQ/L (22.0-29.0)
[2021-08-17 16:31] LABS: C REACTIVE PROTEIN QUANTITATIV 0.93 MG/DL (0.00-0.30)
[2021-08-17 16:32] LABS: ABG pH (ARTERIAL) 7.193 UNITS (7.350-7.450)
[2021-08-17 16:34] LABS: RSV AMPLIFICATION NEGATIVE (NEGATIVE)
[2021-08-17 16:44] LABS: ATYPICAL LYMPH 2 % (0-5); LYMPHOCYTES 3 % (16-44); MONOCYTES 4 % (0-5); NEUTROPHILS 81 % (28-66); PLATELET ESTIMATE NORMAL (NORMAL)
[2021-08-17] MEDS: NS 1,000 ML IV SCH ×5 (16:49→19:59)
[2021-08-17] MEDS: PANTOPRAZOLE 40MG VIAL (C9113 PER 1) IV SCH (16:49)
[2021-08-17] MEDS: SOD POLYSTYRENE SULFONATE SUSP 15 GM/60 ML UD PO SCH ×2 (16:51→18:00)
[2021-08-17] MEDS: PIPERACILLIN/TAZOBACTAM SOD 3.375 GM in D5W MINI-BAG PLUS 50 ML IV SCH ×2 (16:52→22:54)
[2021-08-17] MEDS ORDERED: CALCIUM GLUCONATE 1,000 MG in D5W MINI-BAG PLUS 100 ML IV ONE (17:00)
--- OUTSIDE RECORDS SUMMARY | 2021-08-17 17:17 | CCD ---
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 Name Role Phone RONY, B MELISSA GUARDIAN AD LITEM Unavailable Unavailable RONY, B MELISSA GUARDIAN AD LITEM Unavailable Unavailable RONY, B MELISSA GUARDIAN AD LITEM Unavailable Unavailable RONY, B MELISSA GUARDIAN AD LITEM Unavailable Unavailable RONY, B MELISSA GUARDIAN AD LITEM Unavailable Unavailable RONY, B MELISSA GUARDIAN AD LITEM Unavailable Unavailable RONY, B MELISSA GUARDIAN AD LITEM Unavailable Unavailable RONY, B MELISSA GUARDIAN AD LITEM Unavailable Unavailable RONY, B MELISSA GUARDIAN AD LITEM Unavailable Unavailable RONY, B MELISSA GUARDIAN AD LITEM Unavailable Unavailable RONY, B MELISSA GUARDIAN AD LITEM Unavailable Unavailable RONY, B MELISSA GUARDIAN AD LITEM Unavailable Unavailable RONY, B MELISSA GUARDIAN AD LITEM Unavailable Unavailable RONY, B MELISSA GUARDIAN AD LITEM Unavailable Unavailable RONY, B MELISSA GUARDIAN AD LITEM Unavailable Unavailable RONY, B MELISSA GUARDIAN AD LITEM Unavailable Unavailable RONY, B MELISSA GUARDIAN AD LITEM Unavailable Unavailable RONY, B MELISSA GUARDIAN AD LITEM Unavailable Unavailable RONY, B MELISSA GUARDIAN AD LITEM Unavailable Unavailable RONY, B MELISSA GUARDIAN AD LITEM Unavailable Unavailable RONY, B MELISSA GUARDIAN AD LITEM Unavailable Unavailable RONY, B MELISSA GUARDIAN AD LITEM Unavailable Unavailable RONY, B MELISSA GUARDIAN AD LITEM Unavailable Unavailable RONY, B MELISSA GUARDIAN AD LITEM Unavailable Unavailable RONY, B MELISSA GUARDIAN AD LITEM Unavailable Unavailable RONY, B MELISSA GUARDIAN AD LITEM Unavailable Unavailable RONY, B MELISSA GUARDIAN AD LITEM Unavailable Unavailable RONY, B MELISSA GUARDIAN AD LITEM Unavailable Unavailable RONY, B MELISSA GUARDIAN AD LITEM Unavailable Unavailable RONY, B MELISSA GUARDIAN AD LITEM Unavailable Unavailable RONY, B MELISSA GUARDIAN AD LITEM Unavailable Unavailable RONY, B MELISSA GUARDIAN AD LITEM Unavailable Unavailable RONY, B MELISSA GUARDIAN AD LITEM Unavailable Unavailable RONY, B MELISSA GUARDIAN AD LITEM Unavailable Unavailable RONY, B MELISSA GUARDIAN AD LITEM Unavailable Unavailable RONY, B MELISSA GUARDIAN AD LITEM Unavailable Unavailable RONY, B MELISSA GUARDIAN AD LITEM Unavailable Unavailable RONY, B MELISSA GUARDIAN AD LITEM Unavailable Unavailable RONY, B MELISSA GUARDIAN AD LITEM Unavailable Unavailable RONY, B MELISSA GUARDIAN AD LITEM Unavailable Unavailable RONY, B MELISSA GUARDIAN AD LITEM Unavailable Unavailable RONY, B MELISSA GUARDIAN AD LITEM Unavailable Unavailable RONY, B MELISSA GUARDIAN AD LITEM Unavailable Unavailable RONY, B MELISSA GUARDIAN AD LITEM Unavailable Unavailable RONY, B MELISSA GUARDIAN AD LITEM Unavailable Unavailable RONY, B MELISSA GUARDIAN AD LITEM Unavailable Unavailable RONY, B MELISSA GUARDIAN AD LITEM Unavailable Unavailable RONY, B MELISSA GUARDIAN AD LITEM Unavailable Unavailable RONY, B MELISSA GUARDIAN AD LITEM Unavailable Unavailable RONY, B MELISSA GUARDIAN AD LITEM Unavailable Unavailable RONY, B MELISSA GUARDIAN AD LITEM Unavailable Unavailable RONY, B MELISSA GUARDIAN AD LITEM Unavailable Unavailable RONY, B MELISSA GUARDIAN AD LITEM Unavailable Unavailable RONY, B MELISSA GUARDIAN AD LITEM Unavailable Unavailable RONY, B MELISSA GUARDIAN AD LITEM Unavailable Unavailable RONY, B MELISSA GUARDIAN AD LITEM Unavailable Unavailable RONY, B MELISSA GUARDIAN AD LITEM Unavailable Unavailable RONY, B MELISSA GUARDIAN AD LITEM Unavailable Unavailable RONY, B MELISSA GUARDIAN AD LITEM Unavailable Unavailable RONY, B MELISSA GUARDIAN AD LITEM Unavailable Unavailable RONY, B MELISSA GUARDIAN AD LITEM Unavailable Unavailable RONY, B MELISSA GUARDIAN AD LITEM Unavailable Unavailable PICKERAL JR, J RAGHAV PA-C [...] A LINSEY DO Unavailable Unavailable BRYDEN, A LINESY DO Unavailable Unavailable BRYDEN, A LINSEY DO [...] Unavailable Unavailable Damian Yuan MD Unavailable Unavailable WhitesvilleDamian MD Unavailable Unavailable [place]Damian MD Unavailable Unavailable KwabenaDamian MD Unavailable Unavailable [place]Damian MD Unavailable Unavailable [place]Damian MD Unavailable Unavailable KwabenaDamian MD Unavailable Unavailable [place]Damian MD Unavailable Unavailable [place]Damian MD Unavailable Unavailable [place]Damian MD Unavailable Unavailable [place]Damian MD Unavailable Unavailable KwabenaDamian MD Unavailable Unavailable [place]Damian MD Unavailable Unavailable [place]Damian MD Unavailable Unavailable [place]Damian MD Unavailable Unavailable KwabenaDamian MD Unavailable Unavailable [place]Damian MD Unavailable Unavailable KwabenaDamian MD Unavailable Unavailable KwabenaDamian MD Unavailable Unavailable KwabenaDamian MD Unavailable Unavailable KwabenaDamian MD Unavailable Unavailable KwabenaDamian MD Unavailable Unavailable [place]Damian MD Unavailable Unavailable [place]Damian MD Unavailable Unavailable [place]Damian MD Unavailable Unavailable KwabenaDamian MD Unavailable Unavailable [place]Damian MD Unavailable Unavailable KwabenaDamian MD Unavailable Unavailable KwabenaDamian MD Unavailable Unavailable [place]Damian MD Unavailable Unavailable KwabenaDamian MD Unavailable Unavailable [place]Damian MD Unavailable Unavailable [place]Damian MD Unavailable Unavailable KwabenaDamian MD Unavailable Unavailable [place]Damian MD Unavailable Unavailable KwabenaDamian MD Unavailable Unavailable KwabenaDamian MD Unavailable Unavailable KwabenaDamian MD Unavailable Unavailable KwabenaDamian MD Unavailable Unavailable KwabenaDamian MD Unavailable Unavailable KwabenaDamian MD Unavailable Unavailable KwabenaDamian MD Unavailable Unavailable [place]Damian MD Unavailable Unavailable KwabenaDamian MD Unavailable Unavailable KwabenaDamian MD Unavailable Unavailable [place]Damian MD Unavailable Unavailable KwabenaDamian MD Unavailable Unavailable KwabenaDamian MD Unavailable Unavailable KwabenaDamian MD Unavailable Unavailable KwabenaDamian MD Unavailable Unavailable KwabenaDamian MD Unavailable Unavailable KwabenaDamian MD Unavailable Unavailable KwabenaDamian MD Unavailable Unavailable KwabenaDamian MD Unavailable Unavailable KwabenaDamian MD Unavailable Unavailable [place]Damian MD Unavailable Unavailable KwabenaDamian MD Unavailable Unavailable [place]Damian MD Unavailable Unavailable [place] F Tato WANG Unavailable Unavailable [place] F Tato WANG Unavailable Unavailable [place] F Tato WANG Unavailable Unavailable [place] F Tato WANG Unavailable Unavailable Kwabena F Tato WANG Unavailable Unavailable [place] F Tato WANG Unavailable Unavailable Kwabena F Tato WANG Unavailable Unavailable Kwabena F Tato WANG Unavailable Unavailable [place] F Tato WANG Unavailable Unavailable [place] F Tato WANG Unavailable Unavailable Kwabena F Tato WANG Unavailable Unavailable [place] F Tato WANG Unavailable Unavailable [place], F Tato WANG Unavailable Unavailable [place], F Tato WANG Unavailable Unavailable Kwabena F Tato WANG Unavailable Unavailable [place] F Tato WANG Unavailable Unavailable Kwabena F Tato WANG Unavailable Unavailable Kwabena F Tato WANG Unavailable Unavailable [place] F Tato WANG Unavailable Unavailable [place] F Tato WANG Unavailable Unavailable [place], F Tato WANG Unavailable Unavailable Shira Bernal [...] Montserrat WANG Unavailable Unavailable Gabe B Montserrat WAGN Unavailable Unavailable Fish B Montserrat WANG Unavailable Unavailable Fish B Montserrat WANG Unavailable Unavailable Gabe B Montserrat WANG Unavailable Unavailable Gabe B Montserrat WANG Unavailable Unavailable Gabe B Montserrat WANG Unavailable Unavailable Gabe B Montserrat WANG Unavailable Unavailable Fish B Montserrat WANG Unavailable Unavailable Gabe B Montserrta WANG Unavailable Unavailable Fish B Montserrat WANG [...] Unavailable MARVIN, J Helene ANP Unavailable Unavailable [place], Christopher DO Unavailable Unavailable Kwabena, Christopher DO Unavailable Unavailable Kwabena, Christopher DO Unavailable Unavailable [place], Christopher DO Unavailable Unavailable Kwabena, Christopher DO [...] is protected by Article 27-F of the [facility] Public Health law. If you continue you may have access to information: Regarding HIV / AIDS; Provided by facilities licensed or operated by the [facility] Office of Mental Health; or Provided by the [facility] Office for People With Developmental Disabilities. If such information is present, then the following [facility] mandated warning applies: This information has been [...] law may result in a fine or longterm sentence or both. A general authorization for the release of medical or other information is NOT sufficient authorization for further disc losure. Family History Family Member Name Family Member Gender Family Member Status Date o f Status Description Data Source(s) Unknown Unknown Problem [facility] ([facility]) FATHER, GRANDMOTHER Unknown Female Problem [facility] ([facility]) Unknown Unknown Problem [facility] ([facility] Encounters Encounter Providers Location Date Indications Data Source(s ) Outpatient Attender: Montserrat Bernal MD Physical Therapy 07/18 03:30:00 PM EDT [facility] ([facility] ) Outpatient Attender: Checo Parikh 06/25/2021 11:00:00 AM EDT [facility] ([facility] ) Outpatient Attender: Montserrat Bernal MD Physical Therapy 03/25 03:30:00 PM EDT [facility] ([facility] ) Outpatient Attender: Helene Quintanilla 03/2021 09:00:00 AM EDT [facility] ([facility] ) Outpatient Attender: Montserrat Bernal MD Physical Therapy 12/17 08:45:00 AM EST [facility] ([facility]) Outpatient Attender: LINSEY Jung/Laura/Ralph/Eric ndmei 10/25/2020 09:10:00 AM EST [facility] ([facility]) Outpatient Attender: Montserrat Bernal MD Physical Therapy 10/22 08:45:00 AM EST [facility] ([facility]) Outpatient Attender: Helene Quintanilla 07:15:00 AM EST [facility] ([facility] ) Outpatient Attender: MELISSA URIBE NP Physical Therapy 02:45:00 PM EST [facility] ([facility]) Outpatient Attender: RAGHAV Quintanilla 1 10/17/2019 01:00:00 PM EST [facility] ([facility] ) Outpatient Attender: Tato Quintanilla 1 01:30:00 PM EDT [facility] ([facility] ) Outpatient Attender: Helene Quintanilla 08:30:00 AM EDT [facility] ([facility] ) Immunizations Vaccine Date Status Description Data Source(s) COVID-19 VACCINE Moderna 08/03/2021 12:00:00 AM EDT completed [facility] Vaccine Series Complete: YESThis Data wa s Submitted to [facility]. COVID-19 VACCINE Moderna 01/04/2021 12:00:00 AM EDT completed [facility] Vaccine Series Complete: YESThis Data wa s Submitted to [facility] [employer]. COVID-19 VACCINE Moderna 12/07/2020 12:00:00 AM EST completed [facility] Vaccine Series Complete: NOThis Data was Submitted to [facility] [employer]. Influenza, injectable, MDCK, preservative free, sukhdev valent 06/28/2020 08:50:00 AM EDT completed [facility]) Medications Medication Brand Name Start Date Product Form Dose Route Admi nistrative Instructions Pharmacy Instructions Status Indications Reaction Description Data Source(s) Covid-19 vaccine, Unspecified 12/28/2020 12:00:00 AM EDT completed [facility]) Medication administered onsite Covid-19 vaccine, Unspecified 11/30/2020 12:00:00 AM EST completed [facility]) Medication administered onsite Insulin Lispro 100 UNT/ML Injectable Solution [Humalog] Vika log 08/17/2020 12:00:00 AM EST active M [facility]ENT ([facility]) Cephalexin 500 MG Oral Capsule Cephalexin 08/17/2020 12:00:00 AM EST ORAL completed [facility] ([facility]) Esomeprazole 40 MG Delayed Release Oral Capsule Esomeprazole Magnesium 08/02/2020 12:00:00 AM EDT active [facility] ([facility]) Immunization Adminstration,1 Vaccine/Toxoid 06/28/2020 12:00 :00 AM EDT completed [facility] ([facility]) Medication administered onsite Insulin Lispro 100 UNT/ML Injectable Solution [Humalog] Vika log 06/06/2020 12:00:00 AM EDT completed [facility] ([facility]) Insurance Providers Payer name Policy type / Coverage type Policy ID Covered alliance party ID Covered alliance party's relationship to kunz Policy Kunz Plan Information POMCO [id number] WI2 [id number] POMCO [id number] NV2 [id number] [facility] [id number] Self [id number] [facility] U [id number] Spouse [id number] UMR U [id number] Spouse [id number] [facility] ([facility]) [id number] Family Dependent [id number] [facility] [id number] Family Dependent [id number] [facility] (O) [id number] Family Dependent [id number] [facility] Health Maintenance Organization (O) [id number] Family Dependent [id number] [employer] [id number] Family Dependent [id number] [employer] [id number] Family Dependent [id number] [employer] [id number] Family Dependent [id number] [employer] [id number] Family Dependent [id number] [employer] Commercial [id number] Family Dependent UMR [facility] [id number] WI2 [id number] POMCO O [id number] U [id number] Umr Commercial [id number] Family Dependent [id number] [employer] (Old) Commercial [id number] Family Dependent [id number] UMR U [id number] Spouse [id number] Umr [employer] [id number] Family Dependent [id number] Problems, Conditions, and Diagnoses No Information Surgeries/Procedures Procedure Description Date Indications Data Source(s) Diabetic Foot Exam 07/18/2021 12:00:00 AM EDT [facility] OFFICE OUTPATIENT VISIT 25 MINUTES 07/18/2021 12:00:00 AM EDT [facility] ) ECG ROUTINE ECG W/LEAST 12 LDS W/I&R 06/25/2021 12:00: 00 AM EDT [facility] ([facility]) OFFICE OUTPATIENT VISIT 25 MINUTES 06/25/2021 12:00:00 AM EDT [facility] ([facility]) OFFICE OUTPATIENT VISIT 25 MINUTES 03/25/2021 12:00:00 AM EDT [facility] ([facility]) Tangential Biopsy Of Skin, Single Lesion 02/18/2021 12 :00:00 AM EDT [facility] ([facility]) Tangential Each Separate/Additional Lesion 02/18/2021 12:00:00 AM EDT [facility] ([facility]) OFFICE OUTPATIENT VISIT 15 MINUTES 01/15/2021 12:00:00 AM EDT [facility] ([facility]) OFFICE OUTPATIENT VISIT 25 MINUTES 12/17/2020 12:00:00 AM EST [facility] ([facility]) EXC B9 LES MRGN XCP SK TG F/E/E/N/L/M 2.1-3.0CM 2020 12:00:00 AM EST [facility] ([facility], ) OFFICE OUTPATIENT VISIT 25 MINUTES 10/22/2020 12:00:00 AM EST [facility] ([facility]) OFFICE OUTPATIENT VISIT 15 MINUTES 10/03/2020 12:00:00 AM EST [facility] ([facility]) Results ID Date Data Source [id number] 07/18/2021 04:01:00 PM EDT [facility] ([facility]) Name Value Range Interpretation Code Description Data Karen rce(s) Supporting Document(s) Hemoglobin A1c/Hemoglobin.total in Blood 10.2 [facility] ([facility]) Glucose [Mass/volume] in Serum or Plasma 235 [facility] ([facility]) ID Date Data Source [id number] 06/29/2021 08:09:00 AM EDT [facility] Name Value Range Interpretation Code Description Data Karen rce(s) Supporting Document(s) Laboratory test finding (navigational concept) Laboratory test result [facility] This nucleic acid amplification test was developed and its performance characteristics determined by [employer]. Nucleic acid amplification tests include RT-PCR and [...] test finding (navigational concept) Laboratory test result [facility] ([facility]) ID Date Data Source [id number] 06/25/2021 11:37:00 AM EDT [facility] Name Value Range Interpretation Code Description Data Karen rce(s) Supporting Document(s) Thyrotropin [Units/volume] in Serum or Plasma by Detec tion limit <= 0.05 mIU/L 0.55 uIU/mL 0.36-3.74 [facility] ([facility] ) ID Date Data Source [id number] 06/25/2021 11:37:00 AM EDT [facility] ([facility]) Name Value Range Interpretation Code Description Data Karen rce(s) Supporting Document(s) Cholesterol [Mass/volume] in Serum or Plasma 197 mg/dL 131-200 [facility] ([facility]) Cholesterol in HDL [Mass/volume] in Serum or Plasma 51 mg/dL 35-60 [facility] ([facility]) Triglyceride [Mass/volume] in Serum or Plasma 105 mg/dL 30-150 [facility] ([facility] Cholesterol in LDL [Mass/volume] in Serum or Plasma by calcu lation 125 CALC 50-159 [facility] ([facility]) ID Date Data Source [id number] 06/25/2021 11:37:00 AM EDT [facility] ([facility]) Name Value Range Interpretation Code Description Data Karen rce(s) Supporting Document(s) Glucose [Mass/volume] in Serum or Plasma 109 mg/dL 74-99 [facility] ([facility]) 100-125 mg/dL PRE-DIABETES/FASTING >126 mg/dL DIABETES/FASTING Urea nitrogen [Mass/volume] in Serum or Plasma 13 mg/dL 7-18 [facility] ([facility]) Creatinine 0.8 mg/dL 0.6-1.3 [facility] ([facility] Sodium [Moles/volume] in Serum or Plasma 142 meq/L 136-145 [facility] ([facility]) Carbon dioxide, total [Moles/volume] in Serum or Plasma 28 meq/L 21 -32 [facility] ([facility]) Potassium [Moles/volume] in Serum or Plasma 4.6 meq/L 3.5-5.1 [facility] ([facility]) Chloride [Moles/volume] in Serum or Plasma 106 meq/L 98-107 [facility] ([facility]) Alkaline phosphatase isoenzyme [Units/volume] in Serum or Pl asma 99 mg/dL 46-116 [facility] ([facility]) Calcium [Mass/volume] in Serum or Plasma 9.1 mg/dL 8.5-10.1 [facility] ([facility]) Alanine aminotransferase [Enzymatic activity/volume] in Seru m or Plasma 19 U/L 12-78 [facility] ([facility]) Aspartate aminotransferase [Enzymatic activity/volume] in Serum or Plasma 19 U/L 15-37 [facility] ([facility] ) Total Bilirubin 0.3 mg/dL 0.2-1.0 [facility] ([facility]) A/G Ratio 1.20 CALC 1.00-1.90 [facility]) Proteinase 3 Ab [Units/volume] in Serum 6.6 g/dL 6.4-8.2 [facility] ([facility]) Albumin [Mass/volume] in Serum or Plasma 3.6 g/dL 3.4-5.0 [facility] ([facility]) Glomerular filtration rate/1.73 sq M pre dicted among blacks [Volume Rate/Area] in Serum or Plasma by Creatinine-based formula (MDRD) Laboratory test result [facility] ([facility] <content>CHRONIC KIDNEY DISEASE STAGING PER NKF</content>
<content></content>
<content>STAGE I & II GFR >= 60 NORMAL TO MILDLY DECREASED</content>
<content>STAGE III GFR 30-59 MODERATELY DECREASED</content>
<content>STAGE IV GFR 15-29 SEVERELY DECREASED</content>
<content>STAGE V GFR <15 VERY LITTLE GFR LEFT</content>
<content>ESRD GFR <15 ON TRAINING REPRESENTATIVE</content>
<content></content> Glomerular filtration rate/1.73 sq M pre dicted among non-blacks [Volume Rate/Area] in Serum or Plasma by Creatinine-based formula (MDRD) Laboratory test result [facility] ) ID Date Data Source [id number] 06/25/2021 11:37:00 AM EDT [facility] Name Value Range Interpretation Code Description Data Karen rce(s) Supporting Document(s) Hemoglobin A1c/Hemoglobin.total in Blood 10.0 % [facility]) Lab Result Notes: Pre-Diabetes 5.7 - 6.4 % Diabetes = or > 6.5% Glucose mean value [Mass/volume] in Blood Estimated fr om glycated hemoglobin 240 mg/dL 60-110 [facility] ) ID Date Data Source [id number] 03/25/2021 03:37:00 PM EDT [facility] ([facility]) Name Value Range Interpretation Code Description Data Karen rce(s) Supporting Document(s) Hemoglobin A1c/Hemoglobin.total in Blood 9 [facility] ([facility]) Glucose [Mass/volume] in Serum or Plasma 224 [facility]) ID Date Data Source [id number] 02/18/2021 03:00:00 PM EDT [facility] Name Value Range Interpretation Code Description Data Karen rce(s) Supporting Document(s) [facility] Laboratory test result [facility] ([facility]) RESULTS DIAGNOSIS DIAGNOSIS: A. 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 ANT LEFT CHEST- LICHEN SIMPLEX CHRONICUS RESULTS SIGNATURE Cb Gutierrez MD Electronic Signature: 21 FEB 2021 01:57 PM CLINICAL INFORMATION CLINICAL INFORMATION A. ULCERATED LESION; B. IRREGULAR LESION, BROWN SPECIMEN DATA GROSS DESCRIPTION A. Received in 10% buffered formalin is a shave biopsy of skin measuring [id number]. The specimen is quadrisected and entirely submitted in one cassette. B. Received in 10% buffered formalin is a punch biopsy of skin measuring [id number]. The specimen is bisected and entirely submitted [...] vessels in the superficial dermis. CPT Codes 26061f7 The CPT codes provided are for information purposes only, and are based on AMA guidelines without regard to specific payor requirements. END OF REPORT FINAL REPORT-[facility] FINAL [facility],[address] [place] [address],[facility] [address] [address]. [phone]. [phone]. Farm Advisor: Waqas Candelaria MD [facility] [id number], [place] [id number], [place] [id number] Laboratory test finding (navigational concept) Laboratory test result [facility] ([facility]) ID Date Data Source [id number] 12/17/2020 10:09:00 AM EST [facility] ([facility]) Name Value Range Interpretation Code Description Data Karen rce(s) Supporting Document(s) Glucose [Mass/volume] in Serum or Plasma 122 [facility] ([facility]) Hemoglobin A1c/Hemoglobin.total in Blood 7.4 [facility] ([facility]) ID Date Data Source [id number] 10/25/2020 11:38:00 AM EST [facility] ([facility] ) Name Value Range Interpretation Code Description Data Karen rce(s) Supporting Document(s) Surgical pathology study Laboratory test result [facility] ([facility], ) FINAL DIAGNOSIS Skin, right cheek, excision: 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 Note: This findings are most consistent with a keratosis, such as a seborrheic keratosis, with superimposed features of prurigo nodularis. A small infundibular cyst is also noted. See [facility] [id number] 11/06/2020 - 1013 CLINICAL DIAGNOSIS Lesion right cheek 10/26/2020 - 1403 GROSS DIAGNOSIS Received in formalin labeled "right cheek" and consists of a fragment of skin, 3 x 1 x 0.6 cm. All in two. -OA 10/26/2020 - 1404 PRELIMINARY DIAGNOSIS 11/06/2020 - 1015 Signed BERTA ELI MD 10/30/2020 0909 (Prelim) Signed BERTA ELI MD 11/06/2020 1015 ID Date Data Source [id number] 10/03/2020 09:01:00 AM EST [facility] ID Date Data Source [id number] 10/03/2020 09:01:00 AM EST [facility] ([facility]) Name Value Range Interpretation Code Description Data Karen rce(s) Supporting Document(s) Thyrotropin [Units/volume] in Serum or Plasma by Detec tion limit <= 0.05 mIU/L 1.94 uIU/mL 0.36-3.74 [facility] ([facility]) ID Date Data Source [id number] 10/03/2020 09:01:00 AM EST [facility] ([facility]) Name Value Range Interpretation Code Description Data Karen rce(s) Supporting Document(s) Thyrotropin [Units/volume] in Serum or Plasma by Detec tion limit <= 0.05 mIU/L 1.94 uIU/mL 0.36-3.74 [facility] ([facility] ) ID Date Data Source [id number] 10/03/2020 09:01:00 AM EST [facility] ([facility]) Name Value Range Interpretation Code Description Data Karen rce(s) Supporting Document(s) Hemoglobin A1c/Hemoglobin.total in Blood 7.5 % [facility] Lab Result Notes: Pre-Diabetes 5.7 - 6.4 % Diabetes = or > 6.5% Glucose mean value [Mass/volume] in Blood Estimated fr om glycated hemoglobin 169 mg/dL 60-110 [facility] ([facility] ) ID Date Data Source [id number] 10/03/2020 09:01:00 AM EST [facility] ([facility]) Name Value Range Interpretation Code Description Data Karen rce(s) Supporting Document(s) Hemoglobin A1c/Hemoglobin.total in Blood Laboratory test result [facility] ([facility] Thyrotropin [Units/volume] in Serum or Plasma by Detec tion limit <= 0.05 mIU/L Laboratory test result [facility] ([facility]) ID Date Data Source [id number] 09/21/2020 04:02:00 PM EST [facility] ([facility]) Name Value Range Interpretation Code Description Data Karen rce(s) Supporting Document(s) Hemoglobin A1c/Hemoglobin.total in Blood 7.4 [facility] ([facility]) Glucose [Mass/volume] in Serum or Plasma 76 [facility] ([facility]) ID Date Data Source [id number] 07/28/2020 07:58:00 AM EDT [facility] ([facility]) Name Value Range Interpretation Code Description Data Karen rce(s) Supporting Document(s) Coronavirus Covid-19 Laboratory test result [facility] ([facility]) .~.~M65.332 ID Date Data Source [id number] 07/10/2020 10:02:00 PM EDT [facility] ([facility]) Name Value Range Interpretation Code Description Data Karen rce(s) Supporting Document(s) Bedside Glucose 315 mg/dL 70-105 [facility] ([facility]) ID Date Data Source [id number] 07/10/2020 08:56:00 PM EDT [facility] ([facility]) Name Value Range Interpretation Code Description Data Karen rce(s) Supporting Document(s) Glucose, Fasting 276 mg/dL 70-100 [facility] ([facility]) Blood Urea Nitrogen 22 mg/dL 7-18 [facility] ([facility]) Glomerular Filtration Rate Laboratory test result [facility] ([facility]) <content>Units are mL/min/1.73 m2</content>
<content></content>
<content>Chronic Kidney Disease Staging per NKF:</content>
<content></content>
<content>Stage I & II GFR >=60 Normal to Mildly Decreased</content>
<content>Stage III GFR 30- 59 Moderately Decreased</content>
<content>Stage IV GFR 15-29 Severely Decreased</content>
<content>Stage V GFR <15 Very Little GFR Left</content>
<content>ESRD GFR <15 on TRAINING REPRESENTATIVE</content>
<content></content> Creatinine For GFR 0.94 mg/dL 0.70-1.30 [facility] ([facility]) Carbon Dioxide Level 19 meq/L 21-32 [facility] ([facility]) Potassium Serum 4.2 meq/L 3.5-5.1 [facility] ([facility]) Sodium Level 135 meq/L 136-145 [facility] ([facility]) Chloride Level 106 meq/L 98-107 [facility] ([facility]) Anion Gap 10 meq/L 8-16 [facility]) Calcium Level 8.6 mg/dL 8.5-10.1 [facility] ([facility]) ID Date Data Source [id number] 07/10/2020 08:56:00 PM EDT [facility] ([facility]) Name Value Range Interpretation Code Description Data Karen rce(s) Supporting Document(s) Acetone [Mass/volume] in Serum or Plasma 30.87 mg/dL [facility] ([facility]) ID Date Data Source [id number] 07/10/2020 08:36:00 PM EDT [facility] ([facility]) Name Value Range Interpretation Code Description Data Karen rce(s) Supporting Document(s) Bedside Glucose 287 mg/dL 70-105 [facility] ([facility]) ID Date Data Source [id number] 07/10/2020 07:24:00 PM EDT [facility] ([facility]) Name Value Range Interpretation Code Description Data Karen rce(s) Supporting Document(s) Bedside Glucose 374 mg/dL 70-105 [facility] ([facility]) ID Date Data Source [id number] 07/10/2020 06:36:00 PM EDT [facility]) Name Value Range Interpretation Code Description Data Karen rce(s) Supporting Document(s) Bedside Glucose 469 mg/dL 70-105 [facility] ([facility]) ID Date Data Source [id number] 07/10/2020 06:19:00 PM EDT [facility] ([facility]) Name Value Range Interpretation Code Description Data Karen rce(s) Supporting Document(s) CPK Creatine Phosphokinase 112 U/L 39-308 [facility] ([facility]) MB/CK Relative Index 2.41 [facility] ([facility]) <content>DIAGNOSIS CRITERIA</content>
<content>MMB ng/ml Relative Index (RI)</content>
<content>NON-AMI < or = 5 N/A</content>
<content>LEMUS ZONE > 5 < or = 4</content>
<content>AMI > 5 > 4</content>
<content></content> Troponin I Laboratory test result [facility] <content>Troponin I Reference Interval f or Siemens [place] LOCI:</content>
<content></content>
<content>99th Percentile= 0.00-0.045 ng/ml</content>
<content></content>
<content>Risk Stratification:</content>
<content><= 0.10 ng/ml Decreased Risk for Adverse Clinical</content>
<content>Events.</content>
<content>0.10-1.50 ng/ml Increased Risk for Adverse Clinical</content>
<content>Events. Evaluation of additional</content>
<content>criterion and/or repeat testing in 2-6</content>
<content>hours is suggested to rule out myocardial</content>
<content>damage.</content>
<content>>= 1.50 ng/ml Indicative of Myocardial Injury.</content>
<content></content> CK-MB Value Mass 2.7 ng/mL [facility] ([facility]) ID Date Data Source [id number] 07/10/2020 06:19:00 PM EDT [facility] ([facility]) Name Value Range Interpretation Code Description Data Karen rce(s) Supporting Document(s) Ast/Sgot 16 U/L 7-37 [facility] ([facility]) Bilirubin,Total 1.2 mg/dL 0.2-1.0 [facility] ([facility]) Alt/SGPT 20 U/L 12-78 [facility] ([facility]) Alkaline Phosphatase 101 U/L 45-117 [facility] ([facility] Bilirubin,Direct 0.4 mg/dL 0.0-0.2 [facility] ([facility] Albumin/Globulin Ratio 1.1 [facility] ([facility] Total Protein 6.7 GM/DL 6.4-8.2 [facility] ([facility]) Albumin 3.5 GM/DL 3.2-5.2 [facility] ([facility]) ID Date Data Source [id number] 07/10/2020 06:19:00 PM EDT [facility] ([facility] Name Value Range Interpretation Code Description Data Karen rce(s) Supporting Document(s) Phosphate [Moles/volume] in Serum or Plasma 4.7 mg/dL 2.5-4.9 [facility] ([facility]) [id number] FIRST TUBE WAS HEMOLYZED [id number] FIRST TUBE WAS HEMOLYZED Acetone [Mass/volume] in Serum or Plasma 43.31 mg/dL [facility] ([facility]) [id number] FIRST TUBE WAS HEMOLYZED [id number] FIRST TUBE WAS HEMOLYZED Lipoprotein lipase [Enzymatic activity/volume] in Serum or Plasm a 16 U/L 73-393 [facility] ([facility]) [id number] FIRST TUBE WAS HEMOLYZED [id number] FIRST TUBE WAS HEMOLYZED Magnesium [Moles/volume] in Serum or Plasma 2.0 mg/dL 1.8-2.4 [facility] ([facility] [id number] FIRST TUBE WAS HEMOLYZED [id number] FIRST TUBE WAS HEMOLYZED Osmolality of Serum or Plasma 306 MOSM/KG 275-295 [facility] ([place] [id number] FIRST TUBE WAS HEMOLYZED [id number] FIRST TUBE WAS HEMOLYZED ID Date Data Source [id number] 07/10/2020 05:49:00 PM EDT [facility]) Name Value Range Interpretation Code Description Data Karen rce(s) Supporting Document(s) Laboratory test finding (navigational concept) 51.0 % 38.0-51.0 [facility] ([facility]) Laboratory test finding (navigational concept) 489 mg/dL 70-105 [facility] ([facility] Laboratory test finding (navigational concept) 134 meq/L 136-145 [facility] Laboratory test finding (navigational concept) 5.0 mg/dL 4.5-5.3 [facility] ([facility]) Laboratory test finding (navigational concept) 96 meq/L 98-109 [facility] ([facility] Laboratory test finding (navigational concept) 4.4 meq/L 3.5-5.1 [facility] ([facility]) Laboratory test finding (navigational concept) 0.8 mg/dL 0.6-1.3 [facility] ([facility] Laboratory test finding (navigational concept) 22 mg/dL 8-26 [facility] ([facility] Laboratory test finding (navigational concept) 16.0 MM/L 23.0-27.0 [facility] ([facility]) ID Date Data Source [id number] 07/10/2020 05:34:00 PM EDT [facility] ([facility]) Name Value Range Interpretation Code Description Data Karen rce(s) Supporting Document(s) Venous Partial Pressure O2 143.9 mmHg 30.0-50.0 [facility] ([facility] Venous PH 7.344 units 7.330-7.430 [facility] ([facility] Venous Partial Pressure Co2 25.5 mmHg 38.0-50.0 [facility] ([facility]) Venous Hco3 13.6 meq/L 23.0-27.0 [facility] ([facility]) Venous Base Excess -10.0 [facility] ([facility]) Venous Total Co2 14.4 meq/L 24.0-28.0 [facility] ([facility]) Venous Standard Hco3 16.7 meq/L [facility] ( [facility]) Venous O2 Saturation 99.1 % 60.0-80.0 [facility] ([facility]) ID Date Data Source [id number] 07/10/2020 05:34:00 PM EDT [facility] ([facility] Name Value Range Interpretation Code Description Data Karen rce(s) Supporting Document(s) Hemoglobin A1c 7.2 % [facility] <content>REFERENCE RANGES:</content><br/ ><content></content>
<content><=5.6% NORMAL</content>
<content>5.7-6.4% SUGGESTS IMPAIRED GLUCOSE METABOLISM/PREDIABETIC</content>
<content>>= 6.5% ABNORMAL</content>
<content></content> Estimated Average Glucose 160 mg/dL 60-110 [facility] ([place] [facility] ID Date Data Source [id number] 07/10/2020 05:34:00 PM EDT [facility] ([facility] Name Value Range Interpretation Code Description Data Karen rce(s) Supporting Document(s) Color, Urine RFX Laboratory test result [facility] ([facility]) Appearance, Urine RFX Laboratory test result [facility] ([place] Specific [place] Ur Auto RFX 1.028 1.002-1.035 [facility] ([facility] PH,Urine RFX 5.0 units 5.0-9.0 [facility] ([facility] Protein, Urine Auto RFX Laboratory test result [facility] ([place] [facility] Bilirubin, Urine Auto RFX Laboratory test result [facility] ([place] [facility] Urobilinogen, Urine Auto RFX 0.2 mg/dL 0.0-2.0 [facility] ([facility]) Ketone, Urine Auto RFX Laboratory test result [facility] ([facility]) Glucose, Urine (Ua) Auto RFX [facility] Blood, Urine Blood RFX Laboratory test result [facility] ([facility]) Leukocyte Esterase Ur Auto RFX Laboratory test result [facility] ([facility]) Nitrite, Urine Auto RFX Laboratory test result [facility] ([facility]) WBC, Urine Auto RFX 0 /HPF 0-3 [facility] ([facility]) Bacteria, Urine Auto RFX Laboratory test result [facility] ([facility]) RBC, Urine Auto RFX 0 /HPF 0-3 [facility] ([facility]) Hyaline Cast, Urine Auto RFX 0 /LPF 0-1 M [facility]ENT ([facility]) Squam Epithelial Cell Ur Aurfx 0 /HPF 0-6 [facility] ([facility]) ID Date Data Source [id number] 07/10/2020 05:26:00 PM EDT [facility] ([facility]) Name Value Range Interpretation Code Description Data Karen rce(s) Supporting Document(s) White Blood Count 15.5 10 4.0-10.0 [facility] ([facility]) Red Blood Count 4.64 10 4.30-6.10 [facility] ([facility]) Mean Corpuscular Volume 94.0 fl 80.0-96.0 [facility] ([facility]) Hemoglobin 15.1 g/dL 13.5-17.5 [facility] Hematocrit 43.6 % 42.0-52.0 [facility] Platelet Count, Automated 324 10 150-450 [facility] NT ([facility]) Mean Corpuscular HGB Conc 34.6 g/dL 32.0-36.5 [facility] NT ([facility]) Mean Corpuscular Hemoglobin 32.5 pg 27.0-33.0 [place] [facility] ([facility]) Red Cell Distribution Width 11.7 % 11.5-14.5 [place] [facility] ([facility]) Lymph % 8.6 % 24.0-44.0 [facility] [facility] [place] % 4.1 % 0.0-5.0 [facility] [facility] Neutrophils % 85.8 % 36.0-66.0 [facility] ([facility]) Baso % 0.3 % 0.0-1.0 [facility] [facility] Immature Granulocyte % 0.6 % 0-3.0 [facility] ([facility]) Eos % 0.6 % 0.0-3.0 [facility] [facility] [place] # 0.6 10 0.0-0.8 [facility] ([place] [facility]) Nucleated Red Blood Cell % 0.0 % 0-0 [facility] ([facility]) Lymph # 1.3 10 1.5-5.0 [facility] [facility] Neutrophils # 13.3 10 1.5-8.5 [facility] ([facility]) Eos # 0.1 10 0.0-0.5 [facility] [facility] Baso # 0.0 10 0.0-0.2 [facility] [facility] ID Date Data Source [id number] 07/10/2020 05:24:00 PM EDT [facility] ([facility]) Name Value Range Interpretation Code Description Data Karen rce(s) Supporting Document(s) Bedside Glucose 471 mg/dL 70-105 [facility] ([facility]) ID Date Data Source [id number] 06/28/2020 09:05:00 AM EDT [facility] ([facility]) Name Value Range Interpretation Code Description Data Karen rce(s) Supporting Document(s) Cholesterol [Mass/volume] in Serum or Plasma 208 mg/dL 131-200 [facility] ([facility]) Cholesterol in LDL [Mass/volume] in Serum or Plasma by calcu lation 131 CALC 50-159 [facility] ([facility]) Cholesterol in HDL [Mass/volume] in Serum or Plasma 57 mg/dL 35-60 [facility] ([facility]) Triglyceride [Mass/volume] in Serum or Plasma 98 mg/dL 30-150 [facility] ([facility]) ID Date Data Source [id number] 06/19/2020 09:30:00 AM EDT [facility] Name Value Range Interpretation Code Description Data Karen rce(s) Supporting Document(s) Coronavirus Covid-19 Laboratory test result [facility] This nucleic acid amplification test was developed and its performance characteristics determined by [employer]. Nucleic acid amplification tests include PCR and [...] smoker completed Patient is a former smoker [facility] ([facility]) Vital Signs ID Date Data Source [id number] Name Value Range Interpretation Code Description Data Source(s) Oxygen saturation in Arterial blood by Pulse oximetry 98 % 98 % [facility] ([facility]) Systolic blood pressure 124 mm[Hg] 124 mm[Hg] [facility] Diastolic blood pressure 88 mm[Hg] 88 mm[Hg] [facility] ([facility]) Heart rate 129 /min 129 /min [facility] ([facility]) Body height 70 [in_i] 70 [in_i] [facility] ([facility]) 5'10" Body weight 191.50 [lb_av] 191.50 [lb_av] [facility] Body mass index (BMI) [Ratio] 27.5 kg/m2 27.5 k g/m2 [facility] ([facility]) Diastolic blood pressure 88 mm[Hg] 88 mm[Hg] [facility] ([facility]) Systolic blood pressure 126 mm[Hg] 126 mm[Hg] M [facility] ([facility]) Heart rate 130 /min 130 /min [facility] ([facility]) Body weight 197.00 [lb_av] 197.00 [lb_av] [facility] T ([facility]) Body height 70.5 [in_i] 70.5 [in_i] [facility] ([facility]) 5'.50" Body mass index (BMI) [Ratio] 27.9 kg/m2 27.9 k g/m2 [facility] ([facility]) Oxygen saturation in Arterial blood by Pulse oximetry 99 % 99 % [facility] ([facility]) Body mass index (BMI) [Ratio] 27.7 kg/m2 27.7 k g/m2 [facility] ([facility] Oxygen saturation in Arterial blood by Pulse oximetry 98 % 98 % [facility] ([facility] ) Heart rate 77 /min 77 /min [facility] ([facility] Body temperature 96.8 [degF] 96.8 [degF] [facility] ([facility] Body height 70 [in_i] 70 [in_i] [facility] ([facility] 5'10" Body weight 193.25 [lb_av] 193.25 [lb_av] [facility] T ([facility] ) Systolic blood pressure 124 mm[Hg] 124 mm[Hg] M [facility] ([facility] ) Diastolic blood pressure 76 mm[Hg] 76 mm[Hg] [facility] ([facility] ) Body height 70.5 [in_i] 70.5 [in_i] [facility] ([facility]) 5'10.50" Body weight 200.00 [lb_av] 200.00 [lb_av] [facility] T ([facility]) Heart rate 117 /min 117 /min [facility] ([facility]) Oxygen saturation in Arterial blood by Pulse oximetry 97 % 97 % [facility] ([facility]) Body mass index (BMI) [Ratio] 28.3 kg/m2 28.3 k g/m2 [facility] ([facility]) Systolic blood pressure 112 mm[Hg] 112 mm[Hg] M [facility] ([facility]) Diastolic blood pressure 80 mm[Hg] 80 mm[Hg] [facility] ([facility]) Heart rate 106 /min 106 /min [facility] ([facility]) Body height 70.5 [in_i] 70.5 [in_i] [facility] ([facility]) 5'10.50" Body weight 196.00 [lb_av] 196.00 [lb_av] [facility] T ([facility]) Body mass index (BMI) [Ratio] 27.7 kg/m2 27.7 k g/m2 [facility] ([facility]) Body mass index (BMI) [Ratio] 28.9 kg/m2 28.9 k g/m2 [facility] ([facility]) Oxygen saturation in Arterial blood by Pulse oximetry 98 % 98 % [facility] ([facility]) Systolic blood pressure 110 mm[Hg] 110 mm[Hg] M [facility] ([facility] ) Diastolic blood pressure 76 mm[Hg] 76 mm[Hg] [facility] ([facility] ) Heart rate 119 /min 119 /min [facility]) Body temperature 96.8 [degF] 96.8 [degF] [facility] ([facility]) Body height 70 [in_i] 70 [in_i] [facility] ([facility]) 5'10" Body weight 201.50 [lb_av] 201.50 [lb_av] [facility] T ([facility]) Body weight 198.12 [lb_av] 198.12 [lb_av] [facility] T ([facility], ) Body mass index (BMI) [Ratio] 27.6 kg/m2 27.6 k g/m2 [facility], ) Body weight 89.870 kg 89.870 kg [facility], ) Body surface area Derived from formula 2.10 m2 2.10 m2 [facility], ) Pope body weight 172 [lb_av] 172 [lb_av] [facility] T ([facility], ) Systolic blood pressure 121 mm[Hg] 121 mm[Hg] M [facility] ([facility], ) Diastolic blood pressure 84 mm[Hg] 84 mm[Hg] [facility] ([facility], ) Heart rate 112 /min 112 /min [facility] ([facility], ) Body temperature 98.4 [degF] 98.4 [degF] [facility] ([facility], ) Body height 71 [in_i] 71 [in_i] [facility] ([facility], ) 5'11" Systolic blood pressure 136 mm[Hg] 136 mm[Hg] M [facility] ([facility]) Diastolic blood pressure 72 mm[Hg] 72 mm[Hg] [facility] ([facility]) Heart rate 100 /min 100 /min [facility] ([facility]) Body weight 198.00 [lb_av] 198.00 [lb_av] [facility] T ([facility]) Oxygen saturation in Arterial blood by Pulse oximetry 98 % 98 % [facility] ([facility]) Oxygen saturation in Arterial blood by Pulse oximetry 97 % 97 % [facility] ([facility]) Body mass index (BMI) [Ratio] 28.5 kg/m2 28.5 k g/m2 [facility]) Body weight 198.44 [lb_av] 198.44 [lb_av] [facility] T ([facility]) Body height 70 [in_i] 70 [in_i] [facility] ([facility]) 5'10" Body temperature 97.8 [degF] 97.8 [degF] [facility] ([facility]) Heart rate 110 /min 110 /min [facility] ([facility]) Diastolic blood pressure 70 mm[Hg] 70 mm[Hg] [facility] ([facility]) Systolic blood pressure 120 mm[Hg] 120 mm[Hg] [facility] Systolic blood pressure 116 mm[Hg] 116 mm[Hg] M [facility]) Diastolic blood pressure 70 mm[Hg] 70 mm[Hg] [facility] ([facility]) Heart rate 102 /min 102 /min [facility] ([facility]) Body height 70.5 [in_i] 70.5 [in_i] [facility] ([facility]) 5'10.50" Body weight 191.00 [lb_av] 191.00 [lb_av] [facility] T ([facility]) Oxygen saturation in Arterial blood by Pulse oximetry 97 % 97 % [facility] ([facility]) [facility] Body mass index (BMI) [Ratio] 27.0 kg/m2 27.0 k g/m2 [facility] ([facility]) Heart rate 68 /min 68 /min [facility] Systolic blood pressure 122 mm[Hg] 122 mm[Hg] M EDENT ([facility]) Diastolic blood pressure 68 mm[Hg] 68 mm[Hg] [facility] ([facility]) Body height 70.5 [in_i] 70.5 [in_i] [facility] ([facility]) 5'10.50" Body weight 193.00 [lb_av] 193.00 [lb_av] MEDEN T ([facility]) Body mass index (BMI) [Ratio] 27.3 kg/m2 27.3 k g/m2 [facility] ([facility]) Systolic blood pressure 120 mm[Hg] 120 mm[Hg] [facility] Diastolic blood pressure 70 mm[Hg] 70 mm[Hg] [facility] ([facility]) Heart rate 72 /min 72 /min [facility] ([facility]) Body height 70.5 [in_i] 70.5 [in_i] [facility] ([facility]) 5'10.50" Body weight 193.00 [lb_av] 193.00 [lb_av] MEDEN T ([facility]) Oxygen saturation in Arterial blood by Pulse oximetry 98 % 98 % [facility] ([facility]) Body mass index (BMI) [Ratio] 27.3 kg/m2 27.3 k g/m2 [facility] ([facility])
[2021-08-17] MEDS ORDERED: ESOM40CA35 PO (17:24)
[2021-08-17] MEDS ORDERED: ADDE10TA PO (17:24)
[2021-08-17] MEDS ORDERED: SYNT112T2 PO (17:24)
[2021-08-17] MEDS ORDERED: HOME MED LIST COMPLETE! XX SCH (17:25)
--- NOTE | 2021-08-17 17:41 | HPEPDOC ---
[facility] Medical History & Physical Date of Admission Aug 17, 2021 Date of Service: Aug 17, 2021 History and Physical CHIEF COMPLAINT: Nausea vomiting for 2 days; right neck abscess behind the ear 4 days ago draining pus HISTORY OF PRESENT ILLNESS: 51-year-old male with history of insulin-dependent diabetes, gastritis, moderate hiatal hernia, gastroesophageal reflux disease, gastritis, restless leg syndrome, incomplete right bundle branch block with abnormal EKG, left atrial enlargement bilateral finger surgeries with trigger finger release, was in his usual state of health until 4 days ago when he noted a 3 cm bump behind the right ear which became tender red and openly drained purulent discharge, without fever chills at home. He comes to the emergency room with 2-day history of an intractable nausea vomiting nonbilious nonprojectile without coffee-ground emesis, hematemesis, melena, diarrhea, or abdominal pain. Patient was unable to eat for the past 2 days without weight loss. He admits to polyuria, and was prompted by his to come to the ER for evaluation. No medications were taken for the right neck abscess or for nausea and vomiting at home. Patient denies any fever chills weight gain weight loss changes in sleep habits sore throat changes in vision ear discharge nasal congestion diplopia p hotophobia chest pain pressure tightness lightheadedness dizziness PND orthopnea shortness of breath dyspnea on exertion cough hemoptysis dysuria urgency frequency flank pain rash cyanosis pallor or icterus joint pains muscle pains paresthesias bilateral upper lower extremity weakness anxiety polydipsia polyphagia fatigue weakness. PAST MEDICAL HISTORY: insulin-dependent diabetes Hypothyroidism gastritis moderate hiatal hernia gastroesophageal reflux disease restless leg syndrome incomplete right bundle branch block with abnormal EKG Bilateral trigger finger with release surgery by [facility] orthopedic [facility] Depression PAST SURGICAL HISTORY: Bilateral finger surgeries by [place] [facility] group with bilateral index finger release/trigger finger EGD /colonoscopy by Dr. Coker EGD by Dr. Marti garcia cyst resection SOCIAL HISTORY: Works for [employer] Former smoker Social alcohol use FAMILY HISTORY: Father: Diabetes hypertension colon cancer ALLERGIES: Please see below. REVIEW OF SYSTEMS: 10 point review of systems negative aside from positive findings in HPI HOME MEDICATIONS: Please see below. PHYSICAL EXAMINATION: VITAL SIGNS: See below GENERAL APPEARANCE: Speaks in full sentences HEENT: Well-healed scar behind the right ear on the neck without induration erythema purulent drainage. Dry mucous membranes extraocular muscles intact no cervical lymphadenopathy thyromegaly or jugular venous distention No stridor or carotid bruits CARDIOVASCULAR: No murmurs rubs or gallops S1-S2 sinus tachycardia LUNGS: Air entry is equal bilaterally clear to auscultation without wheezing rales or rhonchi ABDOMEN: Positive bowel sounds soft no rebound guarding no CVA tenderness EXTREMITIES: No cyanosis clubbing or pitting edema LABORATORY DATA: See below. IMAGING:See below CT ABDOMEN PELVIS 08/17/2021: 1. Colon is collapsed and there is subtle wall thickening without pericolonic inflammatory changes in the fat. Nevertheless, mild colitis should be considered and correlated clinically. 2. The liver has 3 low-density lesions which are not simple cysts by attenuation values. Hepatic ultrasound may be helpful as next step in their evaluation. 3. Appendix normal. No abdominal or pelvic ascites, adenopathy, perforation or free air. Gallbladder, pancreas, adrenal glands, kidneys/ureters/bladder and spleen all unremarkable. 4. Lung bases clear. Small hiatal hernia. Bones unremarkable. <Electronically signed by Cyrus Bell > 08/17/21 1603 Chest x-ray 08/17/2021: The lung armenta are well inflated without infiltrate or effusion. The CP angle in the right is sharply defined on the left is partially excluded from the field of view but no large effusion, lateral pleural thickening or apical scarring. There is a small nodule in the left upper lung zone abutting the medial aspect of the anterior 1st rib and unchanged dating back to 2013. Heart, mediastinal and hilar contours are normal. Aorta and airway intact. Hilar contour symmetric and normal. Bones are unremarkable. No free air under the diaphragm. IMPRESSION: 1. No acute cardiopulmonary change. Stable chest from 2016. <Electronically signed by Cyrus Bell > 08/17/21 1525 MICROBIOLOGY: Please see below. ASSESSMENT: 51-year-old male with a history of insulin-dependent diabetes, gastritis, moderate hiatal hernia, gastroesophageal reflux disease, gastritis, restless leg syndrome, incomplete right bundle branch block with abnormal EKG, admitted for diabetic ketoacidosis, colitis, hyperkalemia, acute kidney injury, acute metabolic acidosis due to DKA, hyponatremia, sepsis, hyperphosphatemia, hypercalcemia, lactic acidosis secondary to DKA. Diabetic ketoacidosis -With intractable nausea vomiting -secondary to skin abscess on the right neck behind the ear -Admitted to ICU with every hourly fingersticks, every 4 hourly basic metabolic panel magnesium phosphorus and ionized calcium monitoring -IV fluids, insulin drip until anion gap has closed, n.p.o until anion gap has closed. -Change IV fluids to D5 W once glucose is less than 250, but continue insulin drip per protocol until anion gap is closed. -Once anion gap is closed, patient may be given long-acting insulin with continued insulin drip for 1 hour. -1 hour after bridge therapy with long-acting insulin subcu and insulin drip, insulin drip may be discontinued, fingersticks every hourly can be changed to q. ACHS, and patient may be transferred to medical/surgical floor and resumed on a consistent carbohydrate diet. Acute kidney injury with hyperkalemia -Due to nausea vomiting and volume loss -IV fluids, strict I's and O's, daily weights, document urine output -Kayexalate, on insulin drip which will help decrease hyperkalemia. Repeat basic metabolic panel every 4 hours. Uncontrolled hypertension -Metoprolol 25 every 6 hourly which will help with tachycardia as well. Sepsis -With leukocytosis, tachypnea, tachycardia due to colitis and skin abscess -Colitis on CT abdomen and pelvis -Recent skin abscess on the right neck behind the ear which has resolved at home -On Vanco and Zosyn day #1 -Discontinue vancomycin once white count is improved and MRSA is negative. -2 sets of blood cultures sent -UA negative Diabetic skin abscess on the right neck behind the ear, resolved -Well-healed lesion no signs of erythema tenderness fluctuance or purulent drainage -On IV Vanco which will be discontinued once white count is decreased and MRSA negative. Hypothyroidism -Normal T4. Continue present dose of Synthroid Abnormal EKG with left atrial enlargement in his and prior incomplete right bundle branch block -Telemetry Restless leg syndrome/periodic limb movement disorder -Chronic History of gastritis/hiatal hernia/gastroesophageal reflux disease -On PPI Depression -On sertraline Bilateral trigger finger release surgery -Asymptomatic. Outpatient follow-up with his orthopedic surgeon as previously scheduled Diet: N.p.o. until anion gap has closed DVT prophylaxis: Compression stockings Vital Signs Vital Signs Date Time Temp Pulse Resp B/P (MAP) Pulse Ox O2 Delivery O2 Flow Rate FiO2 08/17/21 16:00 22 174/92 (119) 08/17/21 15:56 121 99 Room Air 08/17/21 14:42 97.4 Laboratory Data Labs 24H Laboratory Tests 2 08/17/21 14:51: Lactic Acid Level 4.5*H 08/17/21 14:52: Neutrophils (%) (Auto) , Nucleated Red Blood Cells % (auto) 0.0, Blood Gas Bicarbonate Standard 14.8, Venous Blood pH 7.279L, Venous Blood Partial Pressure CO2 26.8L, Venous Blood Partial Pressure O2 46.4, Venous Blood Total Carbon Dioxide 13.1L, Venous Blood HCO3 12.3L, Venous Blood Oxygen Saturation 80.7H, Venous Blood Base Excess -12.4L, Anion Gap 26H, Glomerular Filtration Rate 59.3L, Osmolality 330H, Calcium Level 10.2H, Phosphorus Level 6.4H, Magnesium Level 2.2, Total Bilirubin 1.0, Direct Bilirubin 0.1, Aspartate Amino Transf (AST/SGOT) 28, Alanine Aminotransferase (ALT/SGPT) 21, Alkaline Phosphatase 172H, Total Protein 8.4H, Albumin 4.4, Albumin/Globulin Ratio 1.1, Lipase 30L, Thyroid Stimulating Hormone (TSH) 4.380H, Free Thyroxine 1.63H, B- Hydroxybutyrate > 46.00H 08/17/21 15:02: POC Glucose (Misc Panel) 582*H, POC Sodium (Misc Panel) 134L, POC Potassium (Misc Panel) 6.1*H, POC Chloride (Misc Panel) 102, POC Total CO2 (Misc Panel) 13.0L, POC Blood Urea Nitrogen (Misc Panel 30H, POC Ionized Calcium (Misc Panel) 4.3L, POC Creatinine (Misc Panel) 0.8, POC Hematocrit (Misc Panel) 53.0H 08/17/21 15:12: Urine Color STRAW, Urine Appearance CLEAR, Urine pH 5.0, Urine Specific [place] 1.027, Urine Protein NEGATIVE, Urine Glucose (UA) 3+H, Urine Ketones 2+H, Urine Blood NEGATIVE, Urine Nitrite NEGATIVE, Urine Bilirubin NEGATIVE, Urine Urobilinogen 0.2, Urine Leukocyte Esterase NEGATIVE, Urine WBC (Auto) 0, Urine RBC (Auto) 0, Urine Hyaline Casts (Auto) 0, Urine Bacteria (Auto) NEGATIVE, Urine Squamous Epithelial Cells 0, Urine Sperm (Auto) 08/17/21 16:04: Bedside Glucose (Misc Panel) 410H CBC/BMP Laboratory Tests 08/17/21 14:52 Microbiology Microbiology 08/17/21 Blood Culture, Received Pending 08/17/21 Blood Culture, Received Pending Home Medications Scheduled Dextroamphetamine/Amphetamine (Adderall 10 mg Tablet) 10 Mg Tablet, 10 MG PO DAILY Esomeprazole Magnesium (Esomeprazole Magnesium Dr) 40 Mg Capsule.dr, 40 MG PO DAILY Insulin Human Lispro (Humalog) 1 Units/0.01 Ml Inj, 1 UNIT SC ASDIRECTED VIA PUMP MDD OF 100 UNITS Levothyroxine Sodium (Synthroid) 112 Mcg Tablet, 112 MCG PO DAILY Sertraline HCl (Sertraline HCl) 50 Mg Tablet, 50 MG PO DAILY Allergies Coded Allergies: SEAFOOD (Verified Allergy, Severe, ANAPHYLAXIS, 10/13/09) A-FIB/CHADSVASC A-FIB History Current/History of A-Fib/PAF?: No Current PO Anticoag Therapy: No Age/Risk Factor Scoring CHADSVASC: CHADSVASC Response (Comments) Value Age Risk Factor Age < 65 years old 0 Gender Risk Factor Male 0 Hx of CHF No 0 Hx of HTN No 0 Hx of Stroke/TIA/or VTE No 0 Hx of Diabetes Yes 1 Hx of Vascular Disease No 0 Total 1 Treatment Treatment ordered: NONE ZACH HANSON MD Aug 17, 2021 16:31
--- NOTE | 2021-08-17 17:43 | ECGEPIP ---
[place] - ED Test Date: 2021-08-17 Pat Name: CB INGRAM Department: Room: - Gender: Male Regulatory And Compliance Technician: SANGEETHA : 1970 Requested By: Holli Banerjee Order Number: [id number] Reading MD: Holli Banerjee Measurements Intervals [place] Rate: 118 P: 72 AL: 148 QRS: 84 QRSD: 82 T: 51 QT: 324 QTc: 454 Interpretive Statements Sinus tachycardia Possible Left atrial enlargement Prolonged QTc Nonspecific ST T wave changes possible inferior wall ME cw 07/10/[address] T wave changes Electronically Signed on 08-17-2021 17:43:35 EDT by Holli Banerjee
[2021-08-17] MEDS: METOPROLOL TART 25 MG TABLET PO SCH (18:00)
[2021-08-17] MEDS ORDERED: NITROGLYCERIN 2% OINT 1 GM *U/D* PKT TOP SCH (18:00)
[2021-08-17 18:45] VITALS: BP 125/73
[2021-08-17] MEDS: INSULIN IV RATE CHANGE DOCUMENTATION ML/HR XX SCH ×4 (18:48→22:00)
[2021-08-17] MEDS ORDERED: VANCOMYCIN HCL 1,000 MG, VIAL MATE ADAPTER 1 EACH in NS 250 ML IV ONE ×2 (19:00→20:00)
[2021-08-17] MEDS: SERTRALINE HCL 50 MG TAB PO SCH (19:54)
[2021-08-17 20:00] VITALS: BP 130/71
[2021-08-17 20:05] LABS: BLOOD UREA NITROGEN 20 MG/DL (7-18); CALCIUM LEVEL 7.8 MG/DL (8.5-10.1); CARBON DIOXIDE LEVEL 23 MEQ/L (21-32); CHLORIDE LEVEL 113 MEQ/L (98-107); GLOMERULAR FILTRATION RATE > 60.0 (>60); GLUCOSE, FASTING 225 MG/DL (70-100); MAGNESIUM LEVEL 1.8 MG/DL (1.8-2.4); PHOSPHORUS LEVEL 2.8 MG/DL (2.5-4.9); POTASSIUM SERUM 5.2 MEQ/L (3.5-5.1); SODIUM LEVEL 142 MEQ/L (136-145)
[2021-08-17] MEDS ORDERED: HumaLOG INSULIN (NovoLOG) PER UNIT SC SCH (21:00)
[2021-08-17 22:00] VITALS: BP 120/70
[2021-08-17] MEDS ORDERED: LEVEMIR (INSULIN DETEMIR) 1 UNITS/0.01ML SC SCH (22:10)
[2021-08-17 22:29] LABS: BLOOD UREA NITROGEN 19 MG/DL (7-18); CALCIUM LEVEL 7.7 MG/DL (8.5-10.1); CARBON DIOXIDE LEVEL 20 MEQ/L (21-32); CHLORIDE LEVEL 114 MEQ/L (98-107); CREATININE FOR GFR 0.82 MG/DL (0.70-1.30); GLOMERULAR FILTRATION RATE > 60.0 (>60); GLUCOSE, FASTING 157 MG/DL (70-100); MAGNESIUM LEVEL 1.8 MG/DL (1.8-2.4); PHOSPHORUS LEVEL 2.4 MG/DL (2.5-4.9); POTASSIUM SERUM 3.9 MEQ/L (3.5-5.1); SODIUM LEVEL 143 MEQ/L (136-145)
[2021-08-17] MEDS ORDERED: GLUCAGON INJ 1MG VIAL SC PRN (23:35)
[2021-08-17] MEDS ORDERED: DEXTROSE 50% 50 ML SYRINGE IV PRN (23:35)
[2021-08-17] MEDS ORDERED: GLUCOSE 4GM CHEW TABLET PO PRN (23:35)
[2021-08-18] VITALS (11 sets, daily range): BP systolic 108–165; BP diastolic 61–90
[2021-08-18 01:18] LABS: BLOOD UREA NITROGEN 19 MG/DL (7-18); CALCIUM LEVEL 7.1 MG/DL (8.5-10.1); CARBON DIOXIDE LEVEL 19 MEQ/L (21-32); CHLORIDE LEVEL 111 MEQ/L (98-107); CREATININE FOR GFR 0.81 MG/DL (0.70-1.30); GLOMERULAR FILTRATION RATE > 60.0 (>60); GLUCOSE, FASTING 273 MG/DL (70-100); MAGNESIUM LEVEL 1.7 MG/DL (1.8-2.4); SODIUM LEVEL 141 MEQ/L (136-145)
[2021-08-18] MEDS ORDERED: ONDANSETRON 4MG/2ML VIAL IV ONE (01:20)
[2021-08-18] MEDS: LEVOTHYROXINE 112MCG TABLET (0.112MG) PO SCH (05:18)
[2021-08-18] MEDS: PIPERACILLIN/TAZOBACTAM SOD 3.375 GM in D5W MINI-BAG PLUS 50 ML IV SCH (05:19)
[2021-08-18] MEDS: METOPROLOL TART 25 MG TABLET PO SCH ×4 (06:00→17:34)
[2021-08-18 06:55] LABS: BASO # 0.1 10^3/uL (0.0-0.2); BASO % 0.2 % (0.0-1.0); HEMATOCRIT 38.1 % (42.0-52.0); LYMPH # 2.1 10^3/uL (1.5-5.0); MEAN CORPUSCULAR HGB CONC 34.4 g/dl (32.0-36.5); MEAN CORPUSCULAR VOLUME 92.9 fl (80.0-96.0); MONO # 1.3 10^3/uL (0.0-0.8); MONO % 5.8 % (2.0-8.0); NEUTROPHILS # 19.3 10^3/uL (1.5-8.5); NEUTROPHILS % 83.9 % (36.0-66.0); PLATELET COUNT, AUTOMATED 269 10^3/uL (150-450)
[2021-08-18] MEDS ORDERED: VANCOMYCIN HCL 1,000 MG, VIAL MATE ADAPTER 1 EACH in NS 250 ML IV SCH (07:00)
[2021-08-18 07:07] LABS: HEMOGLOBIN 13.1 g/dl (13.5-17.5)
[2021-08-18] MEDS: NS 1,000 ML IV SCH (07:12)
[2021-08-18] MEDS ORDERED: INSULIN REGULAR IN 0.9 % NACL 100 UNIT in IV 1 EA IV SCH ×2 (07:20)
[2021-08-18] MEDS ORDERED: INSULIN IV RATE CHANGE DOCUMENTATION ML/HR XX SCH (07:20)
[2021-08-18] MEDS ORDERED: D5W 1,000 ML IV SCH (07:25)
[2021-08-18] MEDS ORDERED: HumaLOG INSULIN (NovoLOG) PER UNIT SC SCH ×2 (07:30→15:30)
[2021-08-18 07:34] LABS: ACETONE/KETONE 41.81 MG/DL (<2.81); ALBUMIN 2.8 GM/DL (3.2-5.2); ALT/SGPT 14 U/L (12-78); BILIRUBIN,DIRECT 0.2 MG/DL (0.0-0.2); BILIRUBIN,TOTAL 0.7 MG/DL (0.2-1.0); BLOOD UREA NITROGEN 23 MG/DL (7-18); CALCIUM LEVEL 7.8 MG/DL (8.5-10.1); CARBON DIOXIDE LEVEL 17 MEQ/L (21-32); CHLORIDE LEVEL 110 MEQ/L (98-107); CREATININE FOR GFR 0.84 MG/DL (0.70-1.30); GLOMERULAR FILTRATION RATE > 60.0 (>60); GLUCOSE, FASTING 272 MG/DL (70-100); PHOSPHORUS LEVEL 3.1 MG/DL (2.5-4.9); POTASSIUM SERUM 3.7 MEQ/L (3.5-5.1); SODIUM LEVEL 141 MEQ/L (136-145); TOTAL PROTEIN 5.7 GM/DL (6.4-8.2)
[2021-08-18] MEDS ORDERED: MAG SULF 1GM/100ML (MAG RUN) 1 GM in IV 1 EA IV ONE (08:00)
--- NOTE | 2021-08-18 08:10 | REPVR ---
PROCEDURE INFORMATION: Exam: US Abdomen, Limited; Right Upper Quadrant Exam date and time: 08/18/2021 7:36 AM Age: 51 years old Clinical indication: Abnormal findings; Abnormal radiologic finding of the abdomen; Radiologic exam and body structure: CT abd/pelvis; Additional info: Liver lesion TECHNIQUE: Imaging protocol: US abdomen. Real time ultrasound with image documentation. Limited exam focused on the right upper quadrant. COMPARISON: CT ABD/PEL W/IV CONTRAST ONLY 08/17/2021 3:27 PM FINDINGS: Liver: There is a 2.1 x 2.1 x 2.0 cm anterior right hepatic lobe cyst with thin internal septation. Gallbladder: Normal. No gallstones. There is no gallbladder wall thickening. Common bile duct: The CBD is normal in caliber measuring 3-4 mm. Pancreas: The pancreas is obscured by bowel gas. Right kidney: The right kidney measures 11.7 x 5.2 x 5.1 cm. There is no right renal mass, stone, cyst or hydronephrosis. IMPRESSION: 2.1 x 2.1 x 2.0 cm thinly septated anterior right hepatic lobe cyst. Follow-up with ultrasound is suggested in 3-6 months to document stability. Electronically signed by: Pravin Alas On 08/18/2021 08:10:08 AM
--- NOTE | 2021-08-18 08:32 | IPN ---
PROGRESS NOTE DATE: 08/18/2021 SUBJECTIVE: Overnight the patient had a T-max of 100.6 and was started on vancomycin and Zosyn. Anion gap is beginning to increase again. He has been placed on insulin drip. He had two episodes of nausea and vomiting with decreased appetite this morning. He said that the bread tasted like a cement block when he tried to eat it with peanut butter this morning. The patient otherwise denies any abdominal pain. No chills, dysuria, urgency, frequency, cough, or shortness of breath. OBJECTIVE: VITAL SIGNS: T-max 100, pulse 109 sinus, respiratory rate 20, blood pressure 122/72, 97% on room air. INTAKE AND OUTPUT: Input of 4.28 L yesterday. Output of 850 and 400 since midnight. Weight is 88.5 kg with admission weight of 86.8 kg. GENERAL: The patient is awake, alert, and oriented x3. HEENT: Moist mucous membranes. NECK: No JVD or thyromegaly. LUNGS: Diminished with fine crackles bilaterally. HEART: S1, S2. Sinus rhythm with episodes of tachycardia. No murmurs noted. ABDOMEN: Soft, nontender, and nondistended. Positive bowel sounds. EXTREMITIES: Trace edema bilateral lower extremities. LABORATORY DATA/IMAGING STUDIES/MICROBIOLOGY: Please see the chart. ASSESSMENT: This is a 51-year-old male with a history of diabetes who presents with intractable nausea and vomiting for two days, but had a right neck abscess behind the ear four days ago, which openly drained purulent material and has completely resolved prior to admission. He presented with sepsis with elevated white count. CT abdomen shows colitis. IMPRESSION/PLAN: 1. Diabetic ketoacidosis. The patient is in the ICU with every hour fingersticks and every four hour basic metabolic panel, magnesium, phosphorus, ionized calcium, and telemetry monitoring. The patient will be kept on IV fluids and insulin drip until anion gap is stabilized for at least 8 hours to 12 hours. The patient has been changed to a liquid diet due to persistent nausea, vomiting, and worsening acidosis. Change IV fluids to D5 today to prevent hypoglycemia since he is back on insulin drip per protocol, but will start at 8 units per hour. Discontinue Levemir insulin since the patient's anion gap is worsening and increasing with decreasing bicarbonate. 2. Acute kidney injury with hyperkalemia, resolved. Currently with normal creatinine, 3. Liver lesion. Ultrasound being done this morning. 4. Uncontrolled hypertension improved on metoprolol 25 mg q.6 hourly currently with blood pressure of 130/71, but remains tachycardic. 5. Hypothyroidism on Synthroid. 6. History of gastritis, hiatal hernia, and reflux on proton pump inhibitor (PPI). 7. Depression on sertraline.
[2021-08-18] MEDS: PANTOPRAZOLE 40MG VIAL (C9113 PER 1) IV SCH (08:38)
[2021-08-18] MEDS: SERTRALINE HCL 50 MG TAB PO SCH (08:38)
[2021-08-18] MEDS ORDERED: INFLUENZA QUADRIVALENT PF VACCINE 0.5ML SYRINGE IM ONE (09:00)
[2021-08-18 10:08] LABS: BLOOD UREA NITROGEN 19 MG/DL (7-18); CALCIUM LEVEL 7.3 MG/DL (8.5-10.1); CARBON DIOXIDE LEVEL 21 MEQ/L (21-32); CHLORIDE LEVEL 111 MEQ/L (98-107); CREATININE FOR GFR 1.08 MG/DL (0.70-1.30); GLOMERULAR FILTRATION RATE > 60.0 (>60); GLUCOSE, FASTING 329 MG/DL (70-100); MAGNESIUM LEVEL 2.3 MG/DL (1.8-2.4); PHOSPHORUS LEVEL 1.5 MG/DL (2.5-4.9); POTASSIUM SERUM 3.3 MEQ/L (3.5-5.1); SODIUM LEVEL 140 MEQ/L (136-145)
[2021-08-18] MEDS ORDERED: POTASSIUM CHLORIDE 10MEQ SR TABLET PO ONE (10:30)
[2021-08-18] MEDS ORDERED: cefTRIAXone SOD 2 GM in D5W MINI-BAG PLUS 50 ML IV SCH (11:00)
[2021-08-18] MEDS: INSULIN IV RATE CHANGE DOCUMENTATION ML/HR XX SCH ×3 (11:08→13:03)
[2021-08-18] MEDS ORDERED: POTASSIUM PHOSPHATE INJ 30 MMOL in D5W 500 ML IV ONE ×2 (13:00→14:20)
[2021-08-18 13:48] LABS: BLOOD UREA NITROGEN 16 MG/DL (7-18); CALCIUM LEVEL 7.5 MG/DL (8.5-10.1); CARBON DIOXIDE LEVEL 26 MEQ/L (21-32); CHLORIDE LEVEL 110 MEQ/L (98-107); CREATININE FOR GFR 0.83 MG/DL (0.70-1.30); GLOMERULAR FILTRATION RATE > 60.0 (>60); GLUCOSE, FASTING 246 MG/DL (70-100); MAGNESIUM LEVEL 2.3 MG/DL (1.8-2.4); PHOSPHORUS LEVEL 1.1 MG/DL (2.5-4.9); POTASSIUM SERUM 3.2 MEQ/L (3.5-5.1); SODIUM LEVEL 139 MEQ/L (136-145)
[2021-08-18] MEDS ORDERED: LEVEMIR (INSULIN DETEMIR) 1 UNITS/0.01ML SC ONE (14:30)
[2021-08-18] MEDS: ADDERALL 5 MG TAB PO SCH (15:30)
[2021-08-18] MEDS: HumaLOG INSULIN (NovoLOG) PER UNIT SC SCH ×2 (16:10→20:22)
[2021-08-18] MEDS: POTASSIUM CHLORIDE 10MEQ SR TABLET PO SCH ×2 (17:15→20:22)
[2021-08-18 17:32] LABS: BASO # 0.1 10^3/uL (0.0-0.2); BASO % 0.3 % (0.0-1.0); EOS # 0.1 10^3/uL (0.0-0.5); EOS % 0.4 % (0.0-3.0); HEMATOCRIT 37.6 % (42.0-52.0); LYMPH # 2.5 10^3/uL (1.5-5.0); MEAN CORPUSCULAR HEMOGLOBIN 31.6 pg (27.0-33.0); MEAN CORPUSCULAR HGB CONC 34.6 g/dl (32.0-36.5); MEAN CORPUSCULAR VOLUME 91.3 fl (80.0-96.0); MONO # 1.3 10^3/uL (0.0-0.8); MONO % 6.9 % (2.0-8.0); NEUTROPHILS # 14.1 10^3/uL (1.5-8.5); NEUTROPHILS % 77.9 % (36.0-66.0); PLATELET COUNT, AUTOMATED 249 10^3/uL (150-450); RED BLOOD COUNT 4.12 10^6/uL (4.30-6.10); WHITE BLOOD COUNT 18.1 10^3/uL (4.0-10.0)
[2021-08-18 17:54] LABS: ERYTHROCYTE SEDIMENTATION RATE 6 mm/hr (0-15)
[2021-08-18] MEDS: NEUTRA-PHOS 1.5 GM PACKET PO SCH (18:00)
[2021-08-18 18:35] LABS: BLOOD UREA NITROGEN 14 MG/DL (7-18); CALCIUM LEVEL 7.6 MG/DL (8.5-10.1); CARBON DIOXIDE LEVEL 24 MEQ/L (21-32); CHLORIDE LEVEL 110 MEQ/L (98-107); CREATININE FOR GFR 0.66 MG/DL (0.70-1.30); GLOMERULAR FILTRATION RATE > 60.0 (>60); GLUCOSE, FASTING 201 MG/DL (70-100); MAGNESIUM LEVEL 2.1 MG/DL (1.8-2.4); PHOSPHORUS LEVEL 2.8 MG/DL (2.5-4.9); POTASSIUM SERUM 4.1 MEQ/L (3.5-5.1); SODIUM LEVEL 141 MEQ/L (136-145)
[2021-08-18] MEDS ORDERED: RAMELTEON 8 MG TAB (ROZEREM) PO PRN (22:35)
[2021-08-18 22:55] LABS: BLOOD UREA NITROGEN 13 MG/DL (7-18); CALCIUM LEVEL 7.7 MG/DL (8.5-10.1); CARBON DIOXIDE LEVEL 25 MEQ/L (21-32); CHLORIDE LEVEL 113 MEQ/L (98-107); CREATININE FOR GFR 0.62 MG/DL (0.70-1.30); GLOMERULAR FILTRATION RATE > 60.0 (>60); GLUCOSE, FASTING 209 MG/DL (70-100); MAGNESIUM LEVEL 1.9 MG/DL (1.8-2.4); PHOSPHORUS LEVEL 1.7 MG/DL (2.5-4.9); POTASSIUM SERUM 3.8 MEQ/L (3.5-5.1); SODIUM LEVEL 144 MEQ/L (136-145)
[2021-08-19] MEDS: K-PHOS NEUTRAL 250MG TABLET (SOD.PHOSPHATE/POT.PHOSPHATE) PO SCH ×2 (01:10→05:29)
[2021-08-19] MEDS: METOPROLOL TART 25 MG TABLET PO SCH ×2 (01:11→05:29)
[2021-08-19] MEDS: LEVOTHYROXINE 112MCG TABLET (0.112MG) PO SCH (05:28)
[2021-08-19 05:29] VITALS: BP 139/86
[2021-08-19 06:00] VITALS: BP 139/86
[2021-08-19 06:26] LABS: BASO # 0.1 10^3/uL (0.0-0.2); BASO % 0.4 % (0.0-1.0); EOS # 0.1 10^3/uL (0.0-0.5); EOS % 0.9 % (0.0-3.0); HEMATOCRIT 36.7 % (42.0-52.0); HEMOGLOBIN 12.9 g/dl (13.5-17.5); LYMPH # 2.3 10^3/uL (1.5-5.0); LYMPH % 18.4 % (24.0-44.0); MEAN CORPUSCULAR HGB CONC 35.1 g/dl (32.0-36.5); MEAN CORPUSCULAR VOLUME 91.1 fl (80.0-96.0); MONO % 7.8 % (2.0-8.0); NEUTROPHILS # 8.8 10^3/uL (1.5-8.5); NEUTROPHILS % 72.2 % (36.0-66.0); PLATELET COUNT, AUTOMATED 235 10^3/uL (150-450); RED BLOOD COUNT 4.03 10^6/uL (4.30-6.10); WHITE BLOOD COUNT 12.2 10^3/uL (4.0-10.0)
[2021-08-19 06:47] LABS: BLOOD UREA NITROGEN 13 MG/DL (7-18); CALCIUM LEVEL 8.3 MG/DL (8.5-10.1); CARBON DIOXIDE LEVEL 25 MEQ/L (21-32); CHLORIDE LEVEL 110 MEQ/L (98-107); CREATININE FOR GFR 0.57 MG/DL (0.70-1.30); GLOMERULAR FILTRATION RATE > 60.0 (>60); GLUCOSE, FASTING 112 MG/DL (70-100); POTASSIUM SERUM 3.8 MEQ/L (3.5-5.1); SODIUM LEVEL 142 MEQ/L (136-145)
[2021-08-19] MEDS ORDERED: HumaLOG INSULIN (NovoLOG) PER UNIT SC SCH ×2 (07:30→21:00)
[2021-08-19] MEDS: NEUTRA-PHOS 1.5 GM PACKET PO SCH (08:00)
[2021-08-19] MEDS: POTASSIUM CHLORIDE 10MEQ SR TABLET PO SCH (08:44)
[2021-08-19] MEDS: INFLUENZA QUADRIVALENT PF VACCINE 0.5ML SYRINGE IM ONE ×2 (08:44→08:48)
[2021-08-19] MEDS: SERTRALINE HCL 50 MG TAB PO SCH (08:45)
[2021-08-19] MEDS: ADDERALL 5 MG TAB PO SCH (08:45)
[2021-08-19] MEDS ORDERED: ALCO1MED31 TP (09:26)
[2021-08-19] MEDS ORDERED: BD P32MI SC (09:26)
[2021-08-19] MEDS ORDERED: LEVE1INJ5 SC (09:26)
[2021-08-19] MEDS ORDERED: CEPH500C PO (09:27)
[2021-08-19] MEDS ORDERED: ATEN25TA PO (09:29)
[2021-08-19] MEDS ORDERED: SELF1KIT MC (09:29)
--- NOTE | 2021-08-19 09:49 | DS.PDOC ---
Discharge Summary General Date of Admission Aug 17, 2021 at 17:12 Date of Discharge 08/19/21 Discharge Summary Wendi Parikh MD [address] [address] 08/19/21 re: CB BURNETT 74 To Whom It May Concern: Mr. Burnett was hospitalized from 08/17/21 to 08/19/21. He may return to work without activity restrictions on 08/22/21. If questions should arise, pls call my office at [phone]. Sincerely, Wendi Parikh MD [facility] Vital Signs/I&Os Vital Signs Date Time Temp Pulse Resp B/P (MAP) Pulse Ox O2 Delivery O2 Flow Rate FiO2 08/19/21 06:00 99.4 86 18 139/86 (103) 98 Room Air I&O- Last 24 Hours up to 6 AM 08/19/21 06:00 Intake Total 3402 ml Output Total 1400 ml Balance 2002 ml Laboratory Data Labs 24H Laboratory Tests 2 08/18/21 09:59: Bedside Glucose (Misc Panel) 275H 08/18/21 11:04: Bedside Glucose (Misc Panel) 359H 08/18/21 12:14: Bedside Glucose (Misc Panel) 279H 08/18/21 12:56: Bedside Glucose (Misc Panel) 202H 08/18/21 13:04: Anion Gap 3L, Glomerular Filtration Rate > 60.0, Calcium Level 7.5L, Whole Blood Ionized Calcium 4.2L, Phosphorus Level 1.1#L, Magnesium Level 2.3 08/18/21 14:01: Bedside Glucose (Misc Panel) 214H 08/18/21 15:01: Bedside Glucose (Misc Panel) 190H 08/18/21 16:02: Bedside Glucose (Misc Panel) 186H 08/18/21 17:19: Immature Granulocyte % (Auto) 0.5, Neutrophils (%) (Auto) 77.9H, Lymphocytes (%) (Auto) 14.0L, Monocytes (%) (Auto) 6.9, Eosinophils (%) (Auto) 0.4, Basophils (%) (Auto) 0.3, Neutrophils # (Auto) 14.1H, Lymphocytes # (Auto) 2.5, Monocytes # (Auto) 1.3H, Eosinophils # (Auto) 0.1, Basophils # (Auto) 0.1, Nucleated Red Blood Cells % (auto) 0.0, Erythrocyte Sedimentation Rate 6, Anion Gap 7L, Glomerular Filtration Rate > 60.0, Calcium Level 7.6L, Whole Blood Ionized Calcium 4.3L, Phosphorus Level 2.8#, Magnesium Level 2.1, C-Reactive Protein, Quantitative 1.66H 08/18/21 20:12: Bedside Glucose (Misc Panel) 224H 08/18/21 22:02: Anion Gap 6L, Glomerular Filtration Rate > 60.0, Calcium Level 7.7L, Whole Blood Ionized Calcium 4.4L, Phosphorus Level 1.7#L, Magnesium Level 1.9 08/19/21 05:55: Immature Granulocyte % (Auto) 0.3, Neutrophils (%) (Auto) 72.2H, Lymphocytes (%) (Auto) 18.4L, Monocytes (%) (Auto) 7.8, Eosinophils (%) (Auto) 0.9, Basophils (%) (Auto) 0.4, Neutrophils # (Auto) 8.8H, Lymphocytes # (Auto) 2.3, Monocytes # (Auto) 1.0H, Eosinophils # (Auto) 0.1, Basophils # (Auto) 0.1, Nucleated Red Blood Cells % (auto) 0.0, Anion Gap 7L, Glomerular Filtration Rate > 60.0, Calcium Level 8.3L CBC/BMP Laboratory Tests 08/18/21 13:04 08/18/21 17:19 08/18/21 22:02 08/19/21 05:55 FSBS Laboratory Tests Test 08/18/21 09:59 08/18/21 11:04 08/18/21 12:14 08/18/21 12:56 Range/Units Bedside Glucose (Misc Panel) 275 359 279 202 70-105 MG/DL Test 08/18/21 14:01 08/18/21 15:01 08/18/21 16:02 08/18/21 20:12 Range/Units Bedside Glucose (Misc Panel) 214 190 186 224 70-105 MG/DL Microbiology Microbiology 08/17/21 Blood Culture - Preliminary, Resulted No growth after 24 hours . All specim... 08/17/21 Blood Culture - Preliminary, Resulted No growth after 24 hours . All specim... Discharge Medications Scheduled Alcohol Antiseptic Pads (Alcohol Prep Pad) 1 Each Med..pad, 1 EACH TP QHS Atenolol (Atenolol) 25 Mg Tablet, 1 TAB PO DAILY Cephalexin (Cephalexin) 500 Mg Capsule, 500 MG PO TID Dextroamphetamine/Amphetamine (Adderall 10 mg Tablet) 10 Mg Tablet, 10 MG PO DAILY, (Reported) Esomeprazole Magnesium (Esomeprazole Magnesium Dr) 40 Mg Capsule.dr, 40 MG PO D AILY, (Reported) Insulin Detemir (Levemir Flextouch) 100 Unit/1 Ml Insuln.pen, 10 UNIT SC QHS Insulin Human Lispro (Humalog) 1 Units/0.01 Ml Inj, 1 UNIT SC ASDIRECTED, (Reported) VIA PUMP MDD OF 100 UNITS Levothyroxine Sodium (Synthroid) 112 Mcg Tablet, 112 MCG PO DAILY, (Reported) Sertraline HCl (Sertraline HCl) 50 Mg Tablet, 50 MG PO DAILY, (Reported) Allergies Coded Allergies: SEAFOOD (Verified Allergy, Severe, ANAPHYLAXIS, 10/13/09) WENDI PARIKH MD Aug 19, 2021 09:48
[2021-08-19 11:57] LABS: CA19-9 TUMOR MARKER,CARBOHYDRA 22.4 U/ML (<35.0)
--- NOTE | 2021-08-19 12:47 | DSES ---
DISCHARGE SUMMARY DATE OF ADMISSION: 08/17/2021 DATE OF DISCHARGE: 08/19/2021 PRIMARY DISCHARGE DIAGNOSES: 1. Right neck abscess opening draining and did not require incision and drainage. 2. Sepsis secondary to abscess. 3. Diabetic ketoacidosis. 4. Hypothyroidism. 5. History of gastritis. 6. Moderate hiatal hernia. 7. Gastroesophageal reflux disease. 8. Recent bilateral trigger finger release surgery. 9. Depression. 10. History of abnormal EKG with incomplete right bundle branch block. 11. Depression. DISCHARGE MEDICATIONS: 1. Insulin pump as managed by his display designer outside Montserrat Bernal MD. 2. Levemir insulin was given as the patient did not have any insulin at home 10 units subcutaneously at bedtime. 3. Keflex 500 mg three times a day. 4. Atenolol 25 daily. 5. Adderall 10 mg daily. 6. Esomeprazole 40 mg daily. 7. Synthroid 112 mcg daily. 8. Sertraline 50 mg daily. HISTORY AND HOSPITAL COURSE: This is a 51 -year-old male admitted on 08/17/2021 with complaints of abdominal pain, nausea, vomiting as well as a right neck abscess that drained spontaneously 4 days ago prior to presentation. Patient was afebrile, but was found to have a white count of 31,000. He was given vanco, Zosyn and was emergently started on a regular insulin drip 8 units per hour and admitted to the Intensive Care Unit with every 1 hour fingerstick, I.V. fluids, normal saline and changed to D5W once the glucose was less than 250. Patient's anion gap had closed. He was kept on D50 and Levemir insulin 20 units subcu was given. He was initially kept n.p.o. until anion gap had closed and he was changed over to a consistent carbohydrate diet. Patient had improvement with his white count from 31,000 to 12,000 on discharge. He was transitioned to I.V. ceftriaxone on 08/18/2021 since MRSA screen was negative and he had no signs of cellulitis at the right neck with an openly draining healed abscess. Patient's blood cultures were negative. Patient had symptomatic improvement of his nausea, vomiting and abdominal pain and was able to tolerate his diet. CT abdomen and pelvis was done to evaluate his abdominal pain and showed an abnormal lesion in the liver which was evaluated with a right upper quadrant liver ultrasound which showed a 2.1 x 2.1 x 2 thinly septated anterior right hepatic lobe cyst with follow up with ultrasound suggested in 3 months to document stability. CONDITION ON DISCHARGE: Patient is discharged in stable condition. DISCHARGE INSTRUCTIONS: 1. Repeat liver ultrasound in 3 months to document stability of the 2 x 2 x 2 cm right hepatic lobe cyst. 2. Patient is to resume his insulin pump at home as previously managed by his display designer outside Dr. Montserrat Bernal. 3. Immediate follow up with Dr. Montserrat Bernal within 5 days of hospital discharge and to call the Endocrine Office if glucose is less than 100 or greater than 300. 4. If patient does not have any insulin for his insulin pump he has been prescribed Levemir insulin 10 units subcu at bedtime. 5. Immediate follow up with primary care physician within 1 week of discharge. PHYSICAL EXAMINATION ON DISCHARGE: Temperature 99.4, pulse 96 sinus, respiratory rate 18, blood pressure 139/86, 98 % on room air. General: Patient is awake, alert, oriented to person, place and time, answering questions appropriately. Lungs: Clear to auscultation, no wheezes, rhonchi or rales. Heart: S1 and S2, sinus rhythm. Abdomen: Soft, nontender, nondistended, positive bowel sounds. Extremities: No cyanosis, clubbing or pitting edema. Skin: Patient has a well healed recent abscess, no signs of erythema, tenderness, induration or crepitus behind the right neck behind the ear. LABORATORY DATA/IMAGING STUDIES/MICROBIOLOGY: Please see the chart. Time spent on discharge: Thirty minutes MTDD
[2021-08-19] MEDS ORDERED: LEVEMIR (INSULIN DETEMIR) 1 UNITS/0.01ML SC SCH (21:00)
== END 2021-08-19 10:45 | disposition home or self-care (01) | DRG 638 ==
LOC: M ED 14:26 → M ED INP 17:12 → ENRESERV 17:15 → M PCU 18:26 → M MS5PR 08-18 16:30
PROVIDERS: ADMIT General Practice; ATTEND General Practice
DX: E11.10 Type 2 diabetes mellitus with ketoacidosis without coma (principal); N17.9 Acute kidney failure, unspecified; E87.1 Hypo-osmolality and hyponatremia; E87.5 Hyperkalemia; I10 Essential (primary) hypertension; G25.81 Restless legs syndrome; K44.9 Diaphragmatic hernia without obstruction or gangrene; K21.9 Gastro-esophageal reflux disease without esophagitis; F32.A Depression, unspecified; I45.10 Unspecified right bundle-branch block; Z87.891 Personal history of nicotine dependence; Z79.4 Long term (current) use of insulin; Z79.899 Other long term (current) drug therapy; Z91.013 Allergy to seafood

== ENCOUNTER → 2021-08-27 | Outpatient (CLI) | payer OTHER ==
[~2021-08-27] MED LIST changes: +ADDE10TA PO; +ALCO1MED31 TP; +ATEN25TA PO; +BD P32MI SC; +CEPH500C PO; +DEXTROAMP-AMPHETAMIN PO; +ESOM40CA35 PO; +ISOVUE-370 76% 100ML VIAL As Ordered ONE; +LEVE1INJ5 SC; +SELF1KIT MC; +SERT50TA29 PO; +SYNT112T2 PO
--- NOTE | 2021-08-27 10:57 | REPVR ---
PROCEDURE INFORMATION: Exam: CT Neck With Contrast Exam date and time: 08/27/2021 10:32 AM Age: 51 years old Clinical indication: Condition or disease; Other: Abscess behind RT ear TECHNIQUE: Imaging protocol: Computed tomography images of the neck with contrast. Radiation optimization: All CT scans at this facility use at least one of these dose optimization techniques: automated exposure control; mA and/or kV adjustment per patient size (includes targeted exams where dose is matched to clinical indication); or iterative reconstruction. Contrast material: ISOVUE 370; Contrast volume: 75 ml; Contrast route: INTRAVENOUS (IV); COMPARISON: CR PORTABLE CHEST X-RAY 08/17/2021 2:49 PM FINDINGS: Paranasal sinuses: A cyst/polyp is present in the inferior right maxillary sinus. Nasopharynx: Unremarkable. Oropharynx: Unremarkable. No significant tonsillar enlargement. Hypopharynx: Unremarkable. Larynx: Unremarkable. Normal epiglottis. Retropharyngeal space: Unremarkable. Submandibular/Parotid glands: Normal. Glands are normal in size. Thyroid: Normal. No enlarged or calcified nodules. Lymph nodes: Unremarkable. No lymphadenopathy. Trachea: Visualized trachea is unremarkable. Lungs: Left upper lobe calcified pulmonary parenchymal granuloma. Bones/joints: Moderate C5-C6 spondylosis. Soft tissues: Posteroinferior right periauricular soft tissue edema blurring tissue planes, no focal fluid collection or ectopic gas identified (series 202, images [id number]). IMPRESSION: Right periauricular cellulitis, a definite abscess is not currently identified. Electronically signed by: Checo Brna On 08/27/2021 10:57:32 AM
== END ==
LOC: M RAD 10:20
PROVIDERS: ATTEND Nurse Practitioner Adult Health
DX: L02.11 Cutaneous abscess of neck (principal)

== ENCOUNTER → 2021-09-10 | Outpatient (REF) | payer OTHER ==
[~2021-09-10] MED LIST changes: -ISOVUE-370 76% 100ML VIAL As Ordered ONE
== END ==
LOC: M LAB REF 17:44
PROVIDERS: ATTEND Otolaryngology
DX: L72.3 Sebaceous cyst (principal)

== ENCOUNTER → 2022-03-13 | Outpatient (CLI) | payer OTHER | LOC: M WHC 07:14 | PROVIDERS: ATTEND Nurse Practitioner Adult Health | DX: K76.89 Other specified diseases of liver (principal) ==

== ENCOUNTER → 2022-05-01 | Outpatient (CLI) | payer OTHER | LOC: M WUC 13:45 | PROVIDERS: ATTEND Orthopaedic Surgery | DX: M75.51 Bursitis of right shoulder (principal) ==

== ENCOUNTER 2022-06-13 05:20 | Inpatient (IN) | payer OTHER ==
[2022-06-13] VITALS (11 sets, daily range): BP systolic 103–136; BP diastolic 62–75
[~2022-06-13] VITALS: Ht 180.3 cm; Wt 82.1 kg
[2022-06-13] MEDS ORDERED: NS 2,520 ML in IV 1 EA IV ONE (05:50)
[2022-06-13] MEDS ORDERED: ONDANSETRON 4MG 2ML VIAL IV ONE ×2 (05:50→21:35)
[2022-06-13 05:53] LABS: VENOUS BASE EXCESS -3.8 (-2.0-2.0); VENOUS HCO3 15.4 MEQ/L (23.0-27.0); VENOUS O2 SATURATION 99.2 % (60.0-80.0); VENOUS PARTIAL PRESSURE CO2 18.3 mmHg (38.0-50.0); VENOUS PARTIAL PRESSURE O2 157.2 mmHg (30.0-50.0); VENOUS PH 7.544 UNITS (7.330-7.430); VENOUS STANDARD HCO3 21.4 MEQ/L
[2022-06-13 05:59] LABS: BASO # 0.1 10^3/uL (0.0-0.2); BASO % 0.5 % (0.0-1.0); EOS % 0.2 % (0.0-3.0); HEMATOCRIT 43.8 % (42.0-52.0); HEMOGLOBIN 15.3 g/dl (13.5-17.5); LYMPH # 1.2 10^3/uL (1.5-5.0); LYMPH % 6.7 % (24.0-44.0); MEAN CORPUSCULAR HEMOGLOBIN 31.4 pg (27.0-33.0); MEAN CORPUSCULAR HGB CONC 34.9 g/dl (32.0-36.5); MEAN CORPUSCULAR VOLUME 89.9 fl (80.0-96.0); MONO # 0.6 10^3/uL (0.0-0.8); MONO % 3.4 % (2.0-8.0); NEUTROPHILS # 16.5 10^3/uL (1.5-8.5); NEUTROPHILS % 88.4 % (36.0-66.0); PLATELET COUNT, AUTOMATED 305 10^3/uL (150-450); RED BLOOD COUNT 4.87 10^6/uL (4.30-6.10); WHITE BLOOD COUNT 18.6 10^3/uL (4.0-10.0)
[2022-06-13] MEDS ORDERED: HumuLIN R (REGULAR) INSULIN (NovoLIN R) **100U/ML** PER UNIT IV ONE (06:30)
[2022-06-13 06:34] LABS: OSMOLALITY SERUM 323 MOSM/KG (275-295)
[2022-06-13 06:40] LABS: CK-MB VALUE MASS 2.7 NG/ML (<3.6); CPK CREATINE PHOSPHOKINASE 220 U/L (39-308); MB/CK RELATIVE INDEX 1.23 (< OR =4)
[2022-06-13] MEDS ORDERED: PIPERACILLIN/TAZOBACTAM SOD 3.375 GM in D5W MINI-BAG PLUS 50 ML IV ONE (06:45)
[2022-06-13 06:55] LABS: RSV AMPLIFICATION NEGATIVE (NEGATIVE)
[2022-06-13 07:03] LABS: ACETONE/KETONE > 46.00 MG/DL (<2.81); ALBUMIN 3.9 GM/DL (3.2-5.2); ALT/SGPT 24 U/L (12-78); BILIRUBIN,DIRECT 0.2 MG/DL (0.0-0.2); BILIRUBIN,TOTAL 0.9 MG/DL (0.2-1.0); BLOOD UREA NITROGEN 20 MG/DL (7-18); CALCIUM LEVEL 9.8 MG/DL (8.5-10.1); CARBON DIOXIDE LEVEL 12 MEQ/L (21-32); CHLORIDE LEVEL 98 MEQ/L (98-107); ETHYL ALCOHOL (ETHANOL) < 0.003 % (0.000-0.010); GLOMERULAR FILTRATION RATE > 60.0 (>56); GLUCOSE, FASTING 635 MG/DL (70-100); LIPASE 64 U/L (73-393); POTASSIUM SERUM 4.6 MEQ/L (3.5-5.1); SODIUM LEVEL 132 MEQ/L (136-145); TOTAL PROTEIN 7.2 GM/DL (6.4-8.2)
[2022-06-13 07:22] LABS: ABG BASE EXCESS -10.2 (-2.0-2.0); ABG HCO3 13.7 MEQ/L (22.0-26.0); ABG O2 SATURATION 98.4 % (95.0-99.0); ABG PARTIAL PRESSURE O2 111.1 mmHg (75.0-100.0); ABG STANDARD HCO3 16.5 MEQ/L (22.0-26.0); ABG TOTAL CO2 14.5 MEQ/L (22.0-29.0); ABG pH (ARTERIAL) 7.339 UNITS (7.350-7.450)
[2022-06-13] MEDS ORDERED: ZOLO100T PO (08:32)
[2022-06-13] MEDS ORDERED: HOME MED LIST COMPLETE! XX SCH (08:35)
[2022-06-13] MEDS: CHLORHEXIDINE GLUCONATE 0.12 % 15ML UDC (PERIDEX ORAL RINSE) MT SCH ×2 (09:00→20:01)
[2022-06-13] MEDS ORDERED: INSULIN IV RATE CHANGE DOCUMENTATION ML/HR XX SCH (09:25)
[2022-06-13] MEDS ORDERED: NS 1,000 ML IV ONE (09:50)
[2022-06-13] MEDS: INSULIN REGULAR IN 0.9 % NACL 100 UNIT in IV 1 EA IV SCH ×2 (09:53)
[2022-06-13] MEDS ORDERED: KCL 20MEQ in NS 1000ML 1,000 ML IV SCH (10:00)
[2022-06-13 10:12] LABS: BLOOD UREA NITROGEN 18 MG/DL (7-18); CALCIUM LEVEL 9.1 MG/DL (8.5-10.1); CARBON DIOXIDE LEVEL 20 MEQ/L (21-32); CHLORIDE LEVEL 112 MEQ/L (98-107); CREATININE FOR GFR 1.11 MG/DL (0.70-1.30); GLOMERULAR FILTRATION RATE > 60.0 (>56); GLUCOSE, FASTING 326 MG/DL (70-100); POTASSIUM SERUM 3.9 MEQ/L (3.5-5.1); SODIUM LEVEL 142 MEQ/L (136-145)
[2022-06-13 10:45] LABS: ABG BASE EXCESS -3.6 (-2.0-2.0); ABG HCO3 21.6 MEQ/L (22.0-26.0); ABG O2 SATURATION 96.5 % (95.0-99.0); ABG PARTIAL PRESSURE CO2 39.6 mmHg (35.0-45.0); ABG PARTIAL PRESSURE O2 86.8 mmHg (75.0-100.0); ABG STANDARD HCO3 21.5 MEQ/L (22.0-26.0); ABG TOTAL CO2 22.8 MEQ/L (22.0-29.0); ABG pH (ARTERIAL) 7.354 UNITS (7.350-7.450)
[2022-06-13] MEDS: PANTOPRAZOLE 40MG VIAL IV SCH (11:49)
[2022-06-13 12:09] LABS: ALBUMIN 3.5 GM/DL (3.2-5.2); ALT/SGPT 21 U/L (12-78); BILIRUBIN,TOTAL 0.6 MG/DL (0.2-1.0); BLOOD UREA NITROGEN 20 MG/DL (7-18); CALCIUM LEVEL 8.8 MG/DL (8.5-10.1); CARBON DIOXIDE LEVEL 21 MEQ/L (21-32); CHLORIDE LEVEL 110 MEQ/L (98-107); CREATININE FOR GFR 0.95 MG/DL (0.70-1.30); GLOMERULAR FILTRATION RATE > 60.0 (>56); GLUCOSE, FASTING 378 MG/DL (70-100); POTASSIUM SERUM 4.3 MEQ/L (3.5-5.1); SODIUM LEVEL 141 MEQ/L (136-145); TOTAL PROTEIN 6.4 GM/DL (6.4-8.2)
[2022-06-13] MEDS ORDERED: INSULIN REGULAR IN 0.9 % NACL 100 UNIT in IV 1 EA IV SCH ×2 (12:30)
[2022-06-13] MEDS: PIPERACILLIN/TAZOBACTAM SOD 3.375 GM in D5W MINI-BAG PLUS 50 ML IV SCH ×2 (12:42→18:27)
[2022-06-13] MEDS: INSULIN IV RATE CHANGE DOCUMENTATION ML/HR XX SCH ×4 (12:58→17:52)
[2022-06-13 13:43] LABS: MAGNESIUM LEVEL 2.2 MG/DL (1.8-2.4); PHOSPHORUS LEVEL 2.3 MG/DL (2.5-4.9)
[2022-06-13] MEDS: HEPARIN SOD (PORCINE) 5000UNITS/ML 1ML VIAL/SYRINGE SQ SCH ×2 (13:55→21:10)
[2022-06-13] MEDS ORDERED: D5W/0.45% SODIUM CHLORIDE 1,000 ML IV SCH (15:35)
[2022-06-13 17:19] LABS: ALBUMIN 3.2 GM/DL (3.2-5.2); ALT/SGPT 21 U/L (12-78); BILIRUBIN,TOTAL 0.5 MG/DL (0.2-1.0); BLOOD UREA NITROGEN 19 MG/DL (7-18); CALCIUM LEVEL 8.5 MG/DL (8.5-10.1); CARBON DIOXIDE LEVEL 25 MEQ/L (21-32); CHLORIDE LEVEL 113 MEQ/L (98-107); CREATININE FOR GFR 0.84 MG/DL (0.70-1.30); GLOMERULAR FILTRATION RATE > 60.0 (>56); GLUCOSE, FASTING 160 MG/DL (70-100); POTASSIUM SERUM 3.8 MEQ/L (3.5-5.1); SODIUM LEVEL 144 MEQ/L (136-145); TOTAL PROTEIN 6.1 GM/DL (6.4-8.2)
[2022-06-13] MEDS ORDERED: DEXTROSE 50% 50 ML SYRINGE IV PRN (18:50)
[2022-06-13] MEDS ORDERED: GLUCOSE 4GM CHEW TABLET PO PRN (18:50)
[2022-06-13] MEDS ORDERED: GLUCAGON INJ 1MG VIAL SC PRN (18:50)
[2022-06-13] MEDS: LEVEMIR (INSULIN DETEMIR) 1 UNITS/0.01ML SC SCH (20:08)
[2022-06-13] MEDS: INSULIN LISPRO (NovoLOG) PER UNIT SC SCH (21:56)
[2022-06-14] VITALS (8 sets, daily range): BP systolic 113–132; BP diastolic 64–80
[2022-06-14 00:11] LABS: ALBUMIN 2.9 GM/DL (3.2-5.2); ALT/SGPT 23 U/L (12-78); BILIRUBIN,TOTAL 0.7 MG/DL (0.2-1.0); BLOOD UREA NITROGEN 18 MG/DL (7-18); CALCIUM LEVEL 8.5 MG/DL (8.5-10.1); CARBON DIOXIDE LEVEL 23 MEQ/L (21-32); CHLORIDE LEVEL 107 MEQ/L (98-107); CREATININE FOR GFR 0.81 MG/DL (0.70-1.30); GLOMERULAR FILTRATION RATE > 60.0 (>56); GLUCOSE, FASTING 289 MG/DL (70-100); POTASSIUM SERUM 3.6 MEQ/L (3.5-5.1); SODIUM LEVEL 140 MEQ/L (136-145); TOTAL PROTEIN 6.1 GM/DL (6.4-8.2)
[2022-06-14] MEDS ORDERED: INSULIN LISPRO (NovoLOG) PER UNIT SC ONE ×2 (00:25→00:30)
[2022-06-14] MEDS: PIPERACILLIN/TAZOBACTAM SOD 3.375 GM in D5W MINI-BAG PLUS 50 ML IV SCH ×4 (00:37→18:12)
[2022-06-14 01:44] LABS: BLOOD UREA NITROGEN 19 MG/DL (7-18); CALCIUM LEVEL 8.3 MG/DL (8.5-10.1); CARBON DIOXIDE LEVEL 24 MEQ/L (21-32); CHLORIDE LEVEL 108 MEQ/L (98-107); GLOMERULAR FILTRATION RATE > 60.0 (>56); GLUCOSE, FASTING 270 MG/DL (70-100); POTASSIUM SERUM 3.5 MEQ/L (3.5-5.1); SODIUM LEVEL 141 MEQ/L (136-145)
[2022-06-14 05:44] LABS: BASO # 0.1 10^3/uL (0.0-0.2); BASO % 0.4 % (0.0-1.0); EOS % 0.2 % (0.0-3.0); HEMATOCRIT 37.4 % (42.0-52.0); LYMPH # 3.2 10^3/uL (1.5-5.0); LYMPH % 19.3 % (24.0-44.0); MEAN CORPUSCULAR HEMOGLOBIN 32.4 pg (27.0-33.0); MEAN CORPUSCULAR VOLUME 92.6 fl (80.0-96.0); MONO # 1.1 10^3/uL (0.0-0.8); MONO % 6.6 % (2.0-8.0); NEUTROPHILS # 12.1 10^3/uL (1.5-8.5); PLATELET COUNT, AUTOMATED 274 10^3/uL (150-450); RED BLOOD COUNT 4.04 10^6/uL (4.30-6.10); WHITE BLOOD COUNT 16.6 10^3/uL (4.0-10.0)
[2022-06-14 05:51] LABS: ABG pH (ARTERIAL) 7.397 UNITS (7.350-7.450)
[2022-06-14 05:51] LABS: HEMOGLOBIN 13.1 g/dl (13.5-17.5)
[2022-06-14 05:52] LABS: ABG BASE EXCESS 0.5 (-2.0-2.0); ABG HCO3 25.6 MEQ/L (22.0-26.0); ABG O2 SATURATION 96.9 % (95.0-99.0); ABG PARTIAL PRESSURE CO2 42.5 mmHg (35.0-45.0); ABG PARTIAL PRESSURE O2 86.1 mmHg (75.0-100.0); ABG TOTAL CO2 26.9 MEQ/L (22.0-29.0)
[2022-06-14] MEDS: HEPARIN SOD (PORCINE) 5000UNITS/ML 1ML VIAL/SYRINGE SQ SCH ×3 (06:03→21:33)
[2022-06-14 06:31] LABS: ALBUMIN 3.1 GM/DL (3.2-5.2); ALT/SGPT 18 U/L (12-78); BILIRUBIN,TOTAL 0.7 MG/DL (0.2-1.0); BLOOD UREA NITROGEN 17 MG/DL (7-18); CALCIUM LEVEL 8.8 MG/DL (8.5-10.1); CARBON DIOXIDE LEVEL 27 MEQ/L (21-32); CHLORIDE LEVEL 108 MEQ/L (98-107); CREATININE FOR GFR 0.87 MG/DL (0.70-1.30); GLOMERULAR FILTRATION RATE > 60.0 (>56); GLUCOSE, FASTING 132 MG/DL (70-100); MAGNESIUM LEVEL 1.9 MG/DL (1.8-2.4); PHOSPHORUS LEVEL 3.9 MG/DL (2.5-4.9); POTASSIUM SERUM 3.6 MEQ/L (3.5-5.1); SODIUM LEVEL 142 MEQ/L (136-145); TOTAL PROTEIN 5.8 GM/DL (6.4-8.2)
[2022-06-14] MEDS: INSULIN LISPRO (NovoLOG) PER UNIT SC SCH ×4 (08:44→21:34)
[2022-06-14] MEDS: LEVEMIR (INSULIN DETEMIR) 1 UNITS/0.01ML SC SCH (08:45)
[2022-06-14] MEDS: PANTOPRAZOLE 40MG VIAL IV SCH (08:45)
[2022-06-14] MEDS: CHLORHEXIDINE GLUCONATE 0.12 % 15ML UDC (PERIDEX ORAL RINSE) MT SCH ×2 (09:00→21:00)
[2022-06-14 11:40] LABS: ALBUMIN 3.1 GM/DL (3.2-5.2); ALT/SGPT 18 U/L (12-78); BILIRUBIN,TOTAL 0.6 MG/DL (0.2-1.0); BLOOD UREA NITROGEN 18 MG/DL (7-18); CALCIUM LEVEL 8.5 MG/DL (8.5-10.1); CARBON DIOXIDE LEVEL 26 MEQ/L (21-32); CHLORIDE LEVEL 108 MEQ/L (98-107); CREATININE FOR GFR 0.95 MG/DL (0.70-1.30); GLOMERULAR FILTRATION RATE > 60.0 (>56); GLUCOSE, FASTING 243 MG/DL (70-100); POTASSIUM SERUM 3.8 MEQ/L (3.5-5.1); SODIUM LEVEL 141 MEQ/L (136-145); TOTAL PROTEIN 5.9 GM/DL (6.4-8.2)
[2022-06-14] MEDS: LEVOTHYROXINE 112MCG TABLET (0.112MG) PO SCH (14:20)
[2022-06-14] MEDS: SERTRALINE 100 MG TAB PO SCH (14:20)
[2022-06-14 17:09] LABS: ALT/SGPT 18 U/L (12-78); BILIRUBIN,TOTAL 0.5 MG/DL (0.2-1.0); BLOOD UREA NITROGEN 17 MG/DL (7-18); CALCIUM LEVEL 8.3 MG/DL (8.5-10.1); CARBON DIOXIDE LEVEL 28 MEQ/L (21-32); CHLORIDE LEVEL 107 MEQ/L (98-107); CREATININE FOR GFR 0.94 MG/DL (0.70-1.30); GLOMERULAR FILTRATION RATE > 60.0 (>56); GLUCOSE, FASTING 248 MG/DL (70-100); POTASSIUM SERUM 3.4 MEQ/L (3.5-5.1); SODIUM LEVEL 139 MEQ/L (136-145)
[2022-06-15 00:09] LABS: ALBUMIN 2.9 GM/DL (3.2-5.2); ALT/SGPT 19 U/L (12-78); BILIRUBIN,TOTAL 0.3 MG/DL (0.2-1.0); BLOOD UREA NITROGEN 15 MG/DL (7-18); CALCIUM LEVEL 8.3 MG/DL (8.5-10.1); CARBON DIOXIDE LEVEL 26 MEQ/L (21-32); CHLORIDE LEVEL 106 MEQ/L (98-107); CREATININE FOR GFR 0.79 MG/DL (0.70-1.30); GLOMERULAR FILTRATION RATE > 60.0 (>56); GLUCOSE, FASTING 254 MG/DL (70-100); POTASSIUM SERUM 3.3 MEQ/L (3.5-5.1); SODIUM LEVEL 139 MEQ/L (136-145); TOTAL PROTEIN 5.9 GM/DL (6.4-8.2)
[2022-06-15] MEDS: PIPERACILLIN/TAZOBACTAM SOD 3.375 GM in D5W MINI-BAG PLUS 50 ML IV SCH ×3 (01:46→13:27)
[2022-06-15 06:00] VITALS: BP 138/88
[2022-06-15] MEDS: LEVOTHYROXINE 112MCG TABLET (0.112MG) PO SCH (06:03)
[2022-06-15] MEDS: HEPARIN SOD (PORCINE) 5000UNITS/ML 1ML VIAL/SYRINGE SQ SCH ×2 (06:04→13:28)
[2022-06-15 06:24] LABS: BASO # 0.1 10^3/uL (0.0-0.2); BASO % 0.7 % (0.0-1.0); EOS # 0.1 10^3/uL (0.0-0.5); EOS % 1.8 % (0.0-3.0); HEMATOCRIT 36.9 % (42.0-52.0); HEMOGLOBIN 12.8 g/dl (13.5-17.5); LYMPH % 42.4 % (24.0-44.0); MEAN CORPUSCULAR HEMOGLOBIN 31.6 pg (27.0-33.0); MEAN CORPUSCULAR HGB CONC 34.7 g/dl (32.0-36.5); MEAN CORPUSCULAR VOLUME 91.1 fl (80.0-96.0); MONO # 0.6 10^3/uL (0.0-0.8); MONO % 8.6 % (2.0-8.0); NEUTROPHILS # 3.3 10^3/uL (1.5-8.5); NEUTROPHILS % 46.5 % (36.0-66.0); PLATELET COUNT, AUTOMATED 254 10^3/uL (150-450); RED BLOOD COUNT 4.05 10^6/uL (4.30-6.10); WHITE BLOOD COUNT 7.1 10^3/uL (4.0-10.0)
[2022-06-15 07:27] LABS: ALBUMIN 2.9 GM/DL (3.2-5.2); ALT/SGPT 17 U/L (12-78); BILIRUBIN,TOTAL 0.6 MG/DL (0.2-1.0); BLOOD UREA NITROGEN 11 MG/DL (7-18); CALCIUM LEVEL 8.6 MG/DL (8.5-10.1); CARBON DIOXIDE LEVEL 27 MEQ/L (21-32); CHLORIDE LEVEL 105 MEQ/L (98-107); CREATININE FOR GFR 0.67 MG/DL (0.70-1.30); GLOMERULAR FILTRATION RATE > 60.0 (>56); GLUCOSE, FASTING 209 MG/DL (70-100); MAGNESIUM LEVEL 1.7 MG/DL (1.8-2.4); PHOSPHORUS LEVEL 3.5 MG/DL (2.5-4.9); POTASSIUM SERUM 3.5 MEQ/L (3.5-5.1); SODIUM LEVEL 137 MEQ/L (136-145); TOTAL PROTEIN 5.6 GM/DL (6.4-8.2)
[2022-06-15] MEDS ORDERED: MAGNESIUM OXIDE 400MG TAB (MAG-OX) PO ONE (09:00)
[2022-06-15] MEDS ORDERED: LEVEMIR (INSULIN DETEMIR) 1 UNITS/0.01ML SC SCH (09:00)
[2022-06-15] MEDS: SERTRALINE 100 MG TAB PO SCH (09:40)
[2022-06-15] MEDS: INSULIN LISPRO (NovoLOG) PER UNIT SC SCH ×3 (09:40→16:35)
[2022-06-15] MEDS: PANTOPRAZOLE 40MG VIAL IV SCH (09:40)
[2022-06-15] MEDS ORDERED: INSUHUMDS SC (13:01)
[2022-06-15] MEDS ORDERED: INSU1MIS20 SC (13:01)
[2022-06-15] MEDS ORDERED: INSUDET SC ×2 (13:01→16:59)
[2022-06-15] MEDS ORDERED: LANC30MI XX (13:01)
[2022-06-15] MEDS ORDERED: ALCOPAD25 TOP (13:01)
[2022-06-15] MEDS ORDERED: GLUC1TES2 XX (13:01)
[2022-06-15] MEDS ORDERED: BLOOKIT21 XX (13:01)
[2022-06-15 14:00] VITALS: BP 136/85
== END 2022-06-15 17:22 | disposition home or self-care (01) | DRG 420 ==
LOC: M ED 05:20 → M ICU 09:47 → ENRESERV 10:10 → M MSPAV 06-14 13:31
PROVIDERS: ADMIT Internal Medicine Critical Care Medicine; ATTEND Family Medicine
DX: E10.10 Type 1 diabetes mellitus with ketoacidosis without coma (principal); E03.9 Hypothyroidism, unspecified; L73.9 Follicular disorder, unspecified; H60.91 Unspecified otitis externa, right ear; D72.829 Elevated white blood cell count, unspecified; Z91.013 Allergy to seafood; Z79.890 Hormone replacement therapy; Z79.899 Other long term (current) drug therapy; Z87.891 Personal history of nicotine dependence; Z79.4 Long term (current) use of insulin; Z96.41 Presence of insulin pump (external) (internal)

== ENCOUNTER 2022-09-19 03:24 | Inpatient (IN) | payer OTHER ==
[~2022-09-19] VITALS: Ht 180.3 cm; Wt 87.6 kg
[~2022-09-19 03:24] MED LIST changes: +ALCOPAD25 TOP; +BLOOKIT21 XX; +GLUC1TES2 XX; +INSU1MIS20 SC; +INSUDET SC; +LANC30MI XX; +ZOLO100T PO
[2022-09-19] MEDS ORDERED: METAL LOCK LOOP XX ONE (03:41)
[2022-09-19 04:04] LABS: BASO # 0.1 10^3/uL (0.0-0.2); BASO % 0.5 % (0.0-1.0); EOS # 0.2 10^3/uL (0.0-0.5); EOS % 1.3 % (0.0-3.0); HEMATOCRIT 43.2 % (42.0-52.0); HEMOGLOBIN 14.8 g/dl (13.5-17.5); LYMPH # 1.9 10^3/uL (1.5-5.0); LYMPH % 15.4 % (24.0-44.0); MEAN CORPUSCULAR HEMOGLOBIN 31.6 pg (27.0-33.0); MEAN CORPUSCULAR HGB CONC 34.3 g/dl (32.0-36.5); MEAN CORPUSCULAR VOLUME 92.1 fl (80.0-96.0); MONO # 0.8 10^3/uL (0.0-0.8); MONO % 6.3 % (2.0-8.0); NEUTROPHILS # 9.3 10^3/uL (1.5-8.5); NEUTROPHILS % 75.8 % (36.0-66.0); PLATELET COUNT, AUTOMATED 298 10^3/uL (150-450); RED BLOOD COUNT 4.69 10^6/uL (4.30-6.10); WHITE BLOOD COUNT 12.3 10^3/uL (4.0-10.0)
[2022-09-19] MEDS ORDERED: ONDANSETRON 4MG 2ML VIAL As Ordered ONE (04:04)
[2022-09-19 04:08] LABS: VENOUS BASE EXCESS -8.2 (-2.0-2.0); VENOUS HCO3 15.9 MEQ/L (23.0-27.0); VENOUS O2 SATURATION 98.2 % (60.0-80.0); VENOUS PARTIAL PRESSURE CO2 29.5 mmHg (38.0-50.0); VENOUS PARTIAL PRESSURE O2 114.7 mmHg (30.0-50.0); VENOUS PH 7.349 UNITS (7.330-7.430); VENOUS TOTAL CO2 16.8 MEQ/L (24.0-28.0)
[2022-09-19] MEDS ORDERED: NS 1,000 ML IV ONE ×2 (04:15→06:20)
[2022-09-19] MEDS ORDERED: ONDANSETRON 4MG 2ML VIAL IV ONE (04:15)
[2022-09-19 04:32] LABS: CK-MB VALUE MASS < 1.0 NG/ML (<3.6); HEMOGLOBIN A1c 10.6 % (4.0-6.0); LIPASE 24 U/L (12-53)
[2022-09-19 04:33] LABS: BILIRUBIN,DIRECT 0.2 MG/DL (<0.4)
[2022-09-19 04:34] LABS: CPK CREATINE PHOSPHOKINASE 81 U/L (46-171); MB/CK RELATIVE INDEX 1.23 (< OR =4)
[2022-09-19 04:36] LABS: ALBUMIN 3.6 G/DL (3.2-5.2); ALKALINE PHOSPHATASE 121 U/L (46-116); ALT/SGPT 17 U/L (7.0-40); AST/SGOT 16 U/L (<34); BILIRUBIN,TOTAL 0.6 MG/DL (0.3-1.2); BLOOD UREA NITROGEN 18 MG/DL (9-23); CALCIUM LEVEL 8.7 MG/DL (8.5-10.1); CARBON DIOXIDE LEVEL 15 MMOL/L (20-31); CHLORIDE LEVEL 99 MMOL/L (98-107); CREATININE FOR GFR 0.62 MG/DL (0.70-1.30); GLOMERULAR FILTRATION RATE > 60.0 (>56); GLUCOSE, FASTING 473 MG/DL (60-100); POTASSIUM SERUM 4.6 MMOL/L (3.5-5.1); SODIUM LEVEL 135 MMOL/L (136-145); TOTAL PROTEIN 6.4 G/DL (5.7-8.2)
[2022-09-19 05:04] LABS: ACETONE/KETONE > 4.50 MMOL/L (0.02-0.27)
[2022-09-19] MEDS ORDERED: INSULIN IV RATE CHANGE DOCUMENTATION ML/HR XX SCH (05:05)
[2022-09-19] MEDS ORDERED: INSULIN REGULAR IN 0.9 % NACL 100 UNIT in IV 1 EA IV SCH ×4 (05:05→06:20)
[2022-09-19] MEDS ORDERED: HumuLIN R (REGULAR) INSULIN (NovoLIN R) **100U/ML** PER UNIT IV ONE (05:05)
[2022-09-19 05:18] LABS: OSMOLALITY SERUM 306 MOSM/KG (275-295)
[2022-09-19] MEDS: HEPARIN SOD (PORCINE) 5000UNITS/ML 1ML VIAL/SYRINGE SC SCH ×4 (06:00→21:09)
[2022-09-19] MEDS ORDERED: INSUHUMDS SC (06:18)
[2022-09-19] MEDS ORDERED: ESOM0.1C PO (06:18)
[2022-09-19] MEDS ORDERED: HOME MED LIST COMPLETE! XX SCH (06:20)
[2022-09-19] MEDS ORDERED: NS 1,000 ML IV SCH ×2 (06:30→08:20)
[2022-09-19] MEDS: ONDANSETRON 4MG 2ML VIAL IV PRN ×2 (06:52→21:07)
[2022-09-19 08:30] VITALS: BP 141/80
[2022-09-19 08:32] LABS: MAGNESIUM LEVEL 1.5 MG/DL (1.8-2.4)
[2022-09-19 08:34] LABS: BLOOD UREA NITROGEN 19 MG/DL (9-23); CALCIUM LEVEL 8.1 MG/DL (8.5-10.1); CARBON DIOXIDE LEVEL 16 MMOL/L (20-31); CHLORIDE LEVEL 106 MMOL/L (98-107); CREATININE FOR GFR 0.69 MG/DL (0.70-1.30); GLOMERULAR FILTRATION RATE > 60.0 (>56); GLUCOSE, FASTING 357 MG/DL (60-100); PHOSPHORUS LEVEL 1.6 MG/DL (2.5-4.9); POTASSIUM SERUM 4.1 MMOL/L (3.5-5.1); SODIUM LEVEL 139 MMOL/L (136-145)
[2022-09-19] MEDS: INSULIN IV RATE CHANGE DOCUMENTATION ML/HR XX SCH ×8 (08:37→16:35)
[2022-09-19] MEDS: SERTRALINE 100 MG TAB PO SCH (08:53)
[2022-09-19] MEDS: PANTOPRAZOLE 40MG VIAL IV SCH (08:54)
[2022-09-19] MEDS ORDERED: MAG SULF 1GM/100ML (MAG RUN) 1 GM in IV 1 EA IV ONE ×2 (09:05→11:05)
[2022-09-19] MEDS: KCL 20MEQ IN D5/0.45NS 1000ML 1,000 ML IV SCH ×2 (09:58→16:26)
[2022-09-19] MEDS: NEUTRA-PHOS 1.5 GM PACKET PO SCH ×2 (09:58→21:06)
[2022-09-19] MEDS: AUGMENTIN 875 MG TAB PO SCH ×2 (10:34→21:07)
[2022-09-19] MEDS: LEVOTHYROXINE 112MCG TABLET (0.112MG) PO SCH (10:34)
[2022-09-19 12:00] VITALS: BP 126/75
[2022-09-19 13:07] LABS: MAGNESIUM LEVEL 2.1 MG/DL (1.8-2.4)
[2022-09-19 13:14] LABS: BLOOD UREA NITROGEN 16 MG/DL (9-23); CALCIUM LEVEL 8.1 MG/DL (8.5-10.1); CARBON DIOXIDE LEVEL 20 MMOL/L (20-31); CHLORIDE LEVEL 107 MMOL/L (98-107); GLOMERULAR FILTRATION RATE > 60.0 (>56); GLUCOSE, FASTING 144 MG/DL (60-100); PHOSPHORUS LEVEL 3.6 MG/DL (2.5-4.9); POTASSIUM SERUM 4.4 MMOL/L (3.5-5.1); SODIUM LEVEL 141 MMOL/L (136-145)
[2022-09-19 16:00] VITALS: BP 119/76
[2022-09-19 16:21] LABS: MAGNESIUM LEVEL 1.9 MG/DL (1.8-2.4)
[2022-09-19 16:27] LABS: BLOOD UREA NITROGEN 14 MG/DL (9-23); CALCIUM LEVEL 7.8 MG/DL (8.5-10.1); CARBON DIOXIDE LEVEL 21 MMOL/L (20-31); CHLORIDE LEVEL 107 MMOL/L (98-107); CREATININE FOR GFR 0.58 MG/DL (0.70-1.30); GLOMERULAR FILTRATION RATE > 60.0 (>56); GLUCOSE, FASTING 159 MG/DL (60-100); PHOSPHORUS LEVEL 2.8 MG/DL (2.5-4.9); POTASSIUM SERUM 3.9 MMOL/L (3.5-5.1); SODIUM LEVEL 139 MMOL/L (136-145)
[2022-09-19] MEDS ORDERED: GLUCAGON INJ 1MG VIAL SC PRN (16:55)
[2022-09-19] MEDS ORDERED: DEXTROSE 50% 50 ML SYRINGE IV PRN (16:55)
[2022-09-19] MEDS ORDERED: GLUCOSE 4GM CHEW TABLET PO PRN (16:55)
[2022-09-19] MEDS: INSULIN LISPRO (NovoLOG) PER UNIT SC SCH (17:19)
[2022-09-19] MEDS ORDERED: LEVEMIR (INSULIN DETEMIR) 1 UNITS/0.01ML SC SCH (18:00)
[2022-09-19 20:00] VITALS: BP 158/89
[2022-09-19] MEDS ORDERED: INSULIN LISPRO (NovoLOG) PER UNIT SC SCH (21:00)
[2022-09-20 04:00] VITALS: BP 146/84
[2022-09-20 05:52] LABS: HEMATOCRIT 38.6 % (42.0-52.0); HEMOGLOBIN 13.3 g/dl (13.5-17.5); MEAN CORPUSCULAR HEMOGLOBIN 31.7 pg (27.0-33.0); MEAN CORPUSCULAR HGB CONC 34.5 g/dl (32.0-36.5); MEAN CORPUSCULAR VOLUME 92.1 fl (80.0-96.0); PLATELET COUNT, AUTOMATED 287 10^3/uL (150-450); RED BLOOD COUNT 4.19 10^6/uL (4.30-6.10)
[2022-09-20] MEDS: HEPARIN SOD (PORCINE) 5000UNITS/ML 1ML VIAL/SYRINGE SC SCH (06:00)
[2022-09-20] MEDS: LEVOTHYROXINE 112MCG TABLET (0.112MG) PO SCH (06:08)
[2022-09-20 06:30] LABS: ALKALINE PHOSPHATASE 104 U/L (46-116); ALT/SGPT 14 U/L (7.0-40); AST/SGOT 19 U/L (<34); BILIRUBIN,TOTAL 0.6 MG/DL (0.3-1.2); BLOOD UREA NITROGEN 8 MG/DL (9-23); CARBON DIOXIDE LEVEL 24 MMOL/L (20-31); CHLORIDE LEVEL 102 MMOL/L (98-107); GLOMERULAR FILTRATION RATE > 60.0 (>56); GLUCOSE, FASTING 232 MG/DL (60-100); POTASSIUM SERUM 4.4 MMOL/L (3.5-5.1); SODIUM LEVEL 136 MMOL/L (136-145); TOTAL PROTEIN 5.7 G/DL (5.7-8.2)
[2022-09-20] MEDS: INSULIN LISPRO (NovoLOG) PER UNIT SC SCH ×2 (07:30→12:55)
[2022-09-20] MEDS: NEUTRA-PHOS 1.5 GM PACKET PO SCH (09:00)
[2022-09-20] MEDS: SERTRALINE 100 MG TAB PO SCH (09:28)
[2022-09-20] MEDS: PANTOPRAZOLE 40MG VIAL IV SCH (09:28)
[2022-09-20] MEDS: AUGMENTIN 875 MG TAB PO SCH (09:29)
[2022-09-20 09:30] VITALS: BP 134/83
[2022-09-20] MEDS ORDERED: INSULIN LISPRO (NovoLOG) PER UNIT SC STA (10:41)
[2022-09-20] MEDS ORDERED: AMOX875T2 PO (11:32)
[2022-09-20 12:13] LABS: HEMATOCRIT 39.1 % (42.0-52.0); HEMOGLOBIN 13.6 g/dl (13.5-17.5)
[2022-09-20] MEDS ORDERED: FLUBLOK(EGG FREE)(QUAD)INFLUENZA VACC 0.5ML SYRINGE 18YRS & OLDER IM.IMMUN ONE (15:00)
== END 2022-09-20 14:30 | disposition home or self-care (01) | DRG 420 ==
LOC: M ED 03:24 → M ED INP 05:56 → ENRESERV 07:13 → M ICU 08:24
PROVIDERS: ADMIT Internal Medicine Pulmonary Disease; ATTEND Family Medicine
DX: E10.10 Type 1 diabetes mellitus with ketoacidosis without coma (principal); E83.42 Hypomagnesemia; E83.39 Other disorders of phosphorus metabolism; E03.9 Hypothyroidism, unspecified; F90.9 Attention-deficit hyperactivity disorder, unspecified type; F32.A Depression, unspecified; K21.9 Gastro-esophageal reflux disease without esophagitis; K44.9 Diaphragmatic hernia without obstruction or gangrene; F41.9 Anxiety disorder, unspecified; G47.33 Obstructive sleep apnea (adult) (pediatric); Z87.891 Personal history of nicotine dependence; Z83.3 Family history of diabetes mellitus; Z82.49 Family history of ischemic heart disease and other diseases of the circulatory system; Z80.9 Family history of malignant neoplasm, unspecified; Z79.4 Long term (current) use of insulin; Z79.890 Hormone replacement therapy; Z79.899 Other long term (current) drug therapy; Z91.013 Allergy to seafood

== ENCOUNTER 2022-11-19 04:08 | Inpatient (IN) | payer OTHER ==
[~2022-11-19] VITALS: Ht 180.3 cm; Wt 85.5 kg
[~2022-11-19 04:08] MED LIST changes: +AMOX875T2 PO; +ESOM0.1C PO
[2022-11-19] MEDS ORDERED: ONDANSETRON 4MG 2ML VIAL IV ONE (04:30)
[2022-11-19] MEDS ORDERED: NS 1,000 ML IV ONE ×2 (04:30→10:40)
[2022-11-19 04:45] LABS: VENOUS BASE EXCESS -6.1 (-2.0-2.0); VENOUS HCO3 16.4 MEQ/L (23.0-27.0); VENOUS O2 SATURATION 74.8 % (60.0-80.0); VENOUS PARTIAL PRESSURE O2 36.7 mmHg (30.0-50.0); VENOUS PH 7.418 UNITS (7.330-7.430); VENOUS TOTAL CO2 17.2 MEQ/L (24.0-28.0)
[2022-11-19 04:57] LABS: BASO # 0.1 10^3/uL (0.0-0.2); BASO % 0.7 % (0.0-1.0); EOS # 0.1 10^3/uL (0.0-0.5); EOS % 0.5 % (0.0-3.0); HEMOGLOBIN 14.9 g/dl (13.5-17.5); LYMPH # 1.2 10^3/uL (1.5-5.0); LYMPH % 6.8 % (24.0-44.0); MEAN CORPUSCULAR HEMOGLOBIN 31.8 pg (27.0-33.0); MEAN CORPUSCULAR HGB CONC 34.7 g/dl (32.0-36.5); MEAN CORPUSCULAR VOLUME 91.7 fl (80.0-96.0); MONO # 0.7 10^3/uL (0.0-0.8); MONO % 3.9 % (2.0-8.0); NEUTROPHILS # 15.8 10^3/uL (1.5-8.5); NEUTROPHILS % 87.4 % (36.0-66.0); PLATELET COUNT, AUTOMATED 289 10^3/uL (150-450); RED BLOOD COUNT 4.69 10^6/uL (4.30-6.10); WHITE BLOOD COUNT 18.1 10^3/uL (4.0-10.0)
[2022-11-19 05:18] LABS: ALBUMIN 4.2 G/DL (3.2-5.2); ALKALINE PHOSPHATASE 120 U/L (46-116); ALT/SGPT 16 U/L (7.0-40); AST/SGOT 21 U/L (<34); BILIRUBIN,DIRECT 0.3 MG/DL (<0.4); BILIRUBIN,TOTAL 0.9 MG/DL (0.3-1.2); BLOOD UREA NITROGEN 25 MG/DL (9-23); CALCIUM LEVEL 9.6 MG/DL (8.5-10.1); CARBON DIOXIDE LEVEL 16 MMOL/L (20-31); CHLORIDE LEVEL 97 MMOL/L (98-107); GLOMERULAR FILTRATION RATE > 60.0 (>56); GLUCOSE, FASTING 614 MG/DL (60-100); PHOSPHORUS LEVEL 3.1 MG/DL (2.5-4.9); POTASSIUM SERUM 4.6 MMOL/L (3.5-5.1); SODIUM LEVEL 133 MMOL/L (136-145); TOTAL PROTEIN 6.9 G/DL (5.7-8.2)
[2022-11-19] MEDS ORDERED: HumuLIN R (REGULAR) INSULIN (NovoLIN R) **100U/ML** PER UNIT IV ONE (05:20)
[2022-11-19] MEDS ORDERED: HALOPERIDOL 5MG/ML 1ML VIAL IV ONE (05:20)
[2022-11-19 05:27] LABS: RSV AMPLIFICATION NEGATIVE (NEGATIVE)
[2022-11-19 05:29] LABS: ACETONE/KETONE > 4.50 MMOL/L (0.02-0.27)
[2022-11-19] MEDS ORDERED: PIPERACILLIN/TAZOBACTAM SOD 4.5 GM in D5W MINI-BAG PLUS 50 ML IV ONE (05:30)
[2022-11-19] MEDS ORDERED: NS 2,570 ML in IV 1 EA IV ONE (05:30)
[2022-11-19] MEDS ORDERED: INSULIN REGULAR IN 0.9 % NACL 100 UNIT in IV 1 EA IV SCH ×4 (05:35→06:30)
[2022-11-19] MEDS: LEVOTHYROXINE 112MCG TABLET (0.112MG) PO SCH (06:00)
[2022-11-19 06:08] LABS: AMPHETAMINES LEVEL URINE NEGATIVE (NEGATIVE); BARBITURATES URINE NEGATIVE (NEGATIVE); BENZODIAZEPINES URINE NEGATIVE (NEGATIVE); COCAINE METABOLITE URINE NEGATIVE (NEGATIVE); METHADONE URINE NEGATIVE (NEGATIVE); OPIATES URINE NEGATIVE (NEGATIVE); PHENCYCLIDINE URINE NEGATIVE (NEGATIVE)
[2022-11-19] MEDS ORDERED: ISOVUE-370 76% 100ML VIAL As Ordered ONE (06:09)
[2022-11-19 06:17] LABS: CANNABINOIDS URINE POSITIVE (NEGATIVE)
[2022-11-19] MEDS: INSULIN IV RATE CHANGE DOCUMENTATION ML/HR XX SCH ×2 (06:49→09:24)
[2022-11-19] MEDS: PANTOPRAZOLE 20 MG TAB PO SCH (09:00)
[2022-11-19] MEDS ORDERED: AMPH1CAP14 PO (09:03)
[2022-11-19] MEDS ORDERED: HOME MED LIST COMPLETE! XX SCH (09:05)
[2022-11-19] MEDS ORDERED: LEVEMIR (INSULIN DETEMIR) 1 UNITS/0.01ML SC ONE (09:15)
[2022-11-19] MEDS ORDERED: DEXTROSE 50% 50ML SYRINGE IV PRN (09:20)
[2022-11-19] MEDS ORDERED: GLUCAGON INJ 1MG VIAL SC PRN (09:20)
[2022-11-19] MEDS ORDERED: GLUCOSE 4GM CHEW TABLET PO PRN (09:20)
[2022-11-19] MEDS ORDERED: NS 0.45% 1,000 ML IV SCH (09:35)
[2022-11-19 11:58] LABS: BASO # 0.1 10^3/uL (0.0-0.2); BASO % 0.3 % (0.0-1.0); LYMPH # 0.8 10^3/uL (1.5-5.0); MEAN CORPUSCULAR HEMOGLOBIN 31.9 pg (27.0-33.0); MEAN CORPUSCULAR HGB CONC 34.2 g/dl (32.0-36.5); MEAN CORPUSCULAR VOLUME 93.4 fl (80.0-96.0); MONO # 0.6 10^3/uL (0.0-0.8); MONO % 3.6 % (2.0-8.0); NEUTROPHILS # 15.3 10^3/uL (1.5-8.5); NEUTROPHILS % 90.6 % (36.0-66.0); PLATELET COUNT, AUTOMATED 230 10^3/uL (150-450); RED BLOOD COUNT 4.07 10^6/uL (4.30-6.10); WHITE BLOOD COUNT 16.9 10^3/uL (4.0-10.0)
[2022-11-19 12:45] LABS: BLOOD UREA NITROGEN 21 MG/DL (9-23); CALCIUM LEVEL 7.9 MG/DL (8.5-10.1); CARBON DIOXIDE LEVEL 18 MMOL/L (20-31); CHLORIDE LEVEL 113 MMOL/L (98-107); CREATININE FOR GFR 0.74 MG/DL (0.70-1.30); GLOMERULAR FILTRATION RATE > 60.0 (>56); GLUCOSE, FASTING 229 MG/DL (60-100); MAGNESIUM LEVEL 1.7 MG/DL (1.8-2.4); POTASSIUM SERUM 4.7 MMOL/L (3.5-5.1); SODIUM LEVEL 142 MMOL/L (136-145)
[2022-11-19] MEDS: PIPERACILLIN/TAZOBACTAM SOD 3.375 GM in D5W MINI-BAG PLUS 50 ML IV SCH ×3 (13:05→23:35)
[2022-11-19] MEDS: INSULIN LISPRO (NovoLOG) PER UNIT SC SCH ×2 (13:06→19:00)
[2022-11-19] MEDS: SERTRALINE 100 MG TAB PO SCH (13:06)
[2022-11-19] MEDS ORDERED: MAG SULF 1GM/100ML (MAG RUN) 1 GM in IV 1 EA IV ONE ×2 (14:00→18:25)
[2022-11-19 16:30] VITALS: BP 142/84
[2022-11-19] MEDS ORDERED: INSULIN LISPRO (NovoLOG) PER UNIT SC ONE (16:50)
[2022-11-19 17:53] LABS: BLOOD UREA NITROGEN 19 MG/DL (9-23); CALCIUM LEVEL 7.5 MG/DL (8.5-10.1); CARBON DIOXIDE LEVEL 20 MMOL/L (20-31); CHLORIDE LEVEL 109 MMOL/L (98-107); CREATININE FOR GFR 0.71 MG/DL (0.70-1.30); GLOMERULAR FILTRATION RATE > 60.0 (>56); GLUCOSE, FASTING 247 MG/DL (60-100); SODIUM LEVEL 140 MMOL/L (136-145)
[2022-11-19 18:12] LABS: MAGNESIUM LEVEL 1.7 MG/DL (1.8-2.4); PHOSPHORUS LEVEL 4.1 MG/DL (2.5-4.9)
[2022-11-19 19:58] VITALS: BP 121/66
[2022-11-19 20:00] VITALS: BP 121/69
[2022-11-19] MEDS ORDERED: INSULIN LISPRO (NovoLOG) PER UNIT SC SCH (21:00)
[2022-11-19] MEDS ORDERED: LEVEMIR (INSULIN DETEMIR) 1 UNITS/0.01ML SC SCH (21:00)
[2022-11-20] VITALS: BP 140/72
[2022-11-20 04:00] VITALS: BP 124/64
[2022-11-20 05:21] LABS: BASO % 0.3 % (0.0-1.0); EOS # 0.1 10^3/uL (0.0-0.5); EOS % 0.7 % (0.0-3.0); HEMATOCRIT 35.5 % (42.0-52.0); LYMPH # 2.3 10^3/uL (1.5-5.0); LYMPH % 15.3 % (24.0-44.0); MEAN CORPUSCULAR HEMOGLOBIN 31.4 pg (27.0-33.0); MEAN CORPUSCULAR HGB CONC 33.8 g/dl (32.0-36.5); MEAN CORPUSCULAR VOLUME 92.9 fl (80.0-96.0); MONO # 1.1 10^3/uL (0.0-0.8); MONO % 7.2 % (2.0-8.0); NEUTROPHILS # 11.6 10^3/uL (1.5-8.5); PLATELET COUNT, AUTOMATED 225 10^3/uL (150-450); RED BLOOD COUNT 3.82 10^6/uL (4.30-6.10); WHITE BLOOD COUNT 15.2 10^3/uL (4.0-10.0)
[2022-11-20 05:46] LABS: BLOOD UREA NITROGEN 16 MG/DL (9-23); CALCIUM LEVEL 7.9 MG/DL (8.5-10.1); CARBON DIOXIDE LEVEL 22 MMOL/L (20-31); CHLORIDE LEVEL 106 MMOL/L (98-107); CREATININE FOR GFR 0.64 MG/DL (0.70-1.30); GLOMERULAR FILTRATION RATE > 60.0 (>56); GLUCOSE, FASTING 152 MG/DL (60-100); MAGNESIUM LEVEL 1.8 MG/DL (1.8-2.4); PHOSPHORUS LEVEL 3.2 MG/DL (2.5-4.9); POTASSIUM SERUM 3.5 MMOL/L (3.5-5.1); SODIUM LEVEL 140 MMOL/L (136-145)
[2022-11-20] MEDS: PIPERACILLIN/TAZOBACTAM SOD 3.375 GM in D5W MINI-BAG PLUS 50 ML IV SCH (06:36)
[2022-11-20] MEDS: LEVOTHYROXINE 112MCG TABLET (0.112MG) PO SCH (06:36)
[2022-11-20] MEDS ORDERED: MAGNESIUM OXIDE 400MG TAB (MAG-OX) PO ONE (06:45)
[2022-11-20] MEDS ORDERED: POTASSIUM CHLORIDE 10MEQ SR TABLET PO ONE (06:45)
[2022-11-20] MEDS ORDERED: INSULIN LISPRO (NovoLOG) PER UNIT SC SCH (07:30)
[2022-11-20 08:00] VITALS: BP 130/81
[2022-11-20] MEDS: INSULIN LISPRO (NovoLOG) PER UNIT SC SCH (08:24)
[2022-11-20] MEDS ORDERED: FLUBLOK(EGG FREE)(QUAD)INFLUENZA VACC 0.5ML SYRINGE 18YRS & OLDER IM.IMMUN ONE (08:25)
[2022-11-20] MEDS: SERTRALINE 100 MG TAB PO SCH (08:25)
[2022-11-20] MEDS ORDERED: LEVEMIR (INSULIN DETEMIR) 1 UNITS/0.01ML SC SCH (09:00)
[2022-11-20] MEDS ORDERED: ENOXAPARIN 40MG/0.4ML SYRINGE (J1650 PER 10MG) SC SCH (09:00)
[2022-11-20] MEDS: PANTOPRAZOLE 20 MG TAB PO SCH (10:07)
[2022-11-20] MEDS ORDERED: METR-265 PO (10:15)
[2022-11-20] MEDS ORDERED: CIPR500T39 PO (10:15)
== END 2022-11-20 12:27 | disposition home or self-care (01) | DRG 720 ==
LOC: M ED 04:08 → M ED INP 09:11 → ENRESERV 14:41 → M PCU 16:15
PROVIDERS: ADMIT Internal Medicine; ATTEND Internal Medicine
DX: A41.9 Sepsis, unspecified organism (principal); E10.10 Type 1 diabetes mellitus with ketoacidosis without coma; E10.42 Type 1 diabetes mellitus with diabetic polyneuropathy; E03.9 Hypothyroidism, unspecified; K21.9 Gastro-esophageal reflux disease without esophagitis; F32.A Depression, unspecified; K52.9 Noninfective gastroenteritis and colitis, unspecified; F41.9 Anxiety disorder, unspecified; F90.9 Attention-deficit hyperactivity disorder, unspecified type; G47.30 Sleep apnea, unspecified; M75.111 Incomplete rotator cuff tear or rupture of right shoulder, not specified as traumatic; Z79.4 Long term (current) use of insulin; Z79.890 Hormone replacement therapy; Z20.822 Contact with and (suspected) exposure to COVID-19; Z79.899 Other long term (current) drug therapy; Z91.013 Allergy to seafood

== ENCOUNTER 2023-09-05 00:34 | Emergency (ER) | payer OTHER ==
[~2023-09-05] VITALS: Ht 154.9 cm; Wt 85.0 kg
[~2023-09-05 00:34] MED LIST changes: +AMPH1CAP14 PO; +CIPR500T39 PO; +INSU100I6 SC; -LEVE1INJ5 SC; +METR-265 PO
[2023-09-05] MEDS ORDERED: NS 1,000 ML IV ONE (01:05)
[2023-09-05] MEDS ORDERED: ONDANSETRON 4MG 2ML VIAL As Ordered ONE (01:07)
[2023-09-05 01:10] LABS: VENOUS BASE EXCESS -12.7 (-2.0-2.0); VENOUS O2 SATURATION 70.5 % (60.0-80.0); VENOUS PH 7.283 UNITS (7.330-7.430); VENOUS STANDARD HCO3 14.3 MMOL/L; VENOUS TOTAL CO2 12.8 MMOL/L (24.0-28.0)
[2023-09-05] MEDS ORDERED: ONDANSETRON 4MG 2ML VIAL IV ONE (01:10)
[2023-09-05 01:15] LABS: HEMATOCRIT 42.4 % (42.0-52.0); HEMOGLOBIN 15.1 g/dl (13.5-17.5); MEAN CORPUSCULAR HEMOGLOBIN 32.1 pg (27.0-33.0); MEAN CORPUSCULAR HGB CONC 35.6 g/dl (32.0-36.5); MEAN CORPUSCULAR VOLUME 90.2 fl (80.0-96.0); PLATELET COUNT, AUTOMATED 353 10^3/uL (150-450); WHITE BLOOD COUNT 23.1 10^3/uL (4.0-10.0)
[2023-09-05 01:32] LABS: LYMPHOCYTES 4 % (16-44); MONOCYTES 6 % (0-5); NEUTROPHILS 90 % (28-66)
[2023-09-05 01:35] LABS: PLATELET CLUMPS SMALL AMT; PLATELET ESTIMATE NORMAL (NORMAL)
[2023-09-05 01:49] LABS: RSV AMPLIFICATION NEGATIVE (NEGATIVE)
[2023-09-05 01:54] LABS: LIPASE 19 U/L (12-53)
[2023-09-05 01:56] LABS: ACETONE/KETONE 4.32 MMOL/L (0.02-0.27)
[2023-09-05 02:05] LABS: ALBUMIN 4.2 G/DL (3.2-5.2); ALKALINE PHOSPHATASE 111 U/L (46-116); ALT/SGPT 28 U/L (7.0-40); AST/SGOT 30 U/L (<34); BILIRUBIN,DIRECT 0.3 MG/DL (<0.4); BILIRUBIN,TOTAL 0.9 MG/DL (0.3-1.2); BLOOD UREA NITROGEN 23 MG/DL (9-23); CALCIUM LEVEL 9.5 MG/DL (8.5-10.1); CARBON DIOXIDE LEVEL 12 MMOL/L (20-31); CHLORIDE LEVEL 96 MMOL/L (98-107); CK-MB VALUE MASS 4.6 NG/ML (<3.6); CPK CREATINE PHOSPHOKINASE 272 U/L (46-171); CREATININE FOR GFR 0.77 MG/DL (0.70-1.30); GLOMERULAR FILTRATION RATE > 60.0 (>56); GLUCOSE, FASTING 557 MG/DL (60-100); MAGNESIUM LEVEL 1.8 MG/DL (1.8-2.4); MB/CK RELATIVE INDEX 1.69 (< OR =4); POTASSIUM SERUM 5.5 MMOL/L (3.5-5.1); SODIUM LEVEL 134 MMOL/L (136-145); TOTAL PROTEIN 7.4 G/DL (5.7-8.2)
[2023-09-05 02:12] LABS: HEMOGLOBIN A1c 10.4 % (4.0-6.0)
[2023-09-05 02:14] LABS: OSMOLALITY SERUM 320 MOSM/KG (275-295)
[2023-09-05] MEDS ORDERED: INSULIN IV RATE CHANGE DOCUMENTATION ML/HR XX SCH ×2 (02:25→04:40)
[2023-09-05] MEDS ORDERED: NS 2,550 ML in IV 1 EA IV ONE (02:25)
[2023-09-05] MEDS ORDERED: PIPERACILLIN/TAZOBACTAM SOD 3.375 GM in D5W MINI-BAG PLUS 50 ML IV ONE (02:25)
[2023-09-05] MEDS ORDERED: HumuLIN R (REGULAR) INSULIN (NovoLIN R) **100U/ML** PER UNIT IV ONE (02:25)
[2023-09-05] MEDS ORDERED: INSULIN REGULAR IN 0.9 % NACL 100 UNIT in IV 1 EA IV SCH ×4 (02:25→04:40)
[2023-09-05 03:00] LABS: MB/CK RELATIVE INDEX 1.79 (< OR =4)
[2023-09-05] MEDS ORDERED: CLOPIDOGREL 300 MG TAB (PLAVIX) PO STA (03:59)
[2023-09-05] MEDS ORDERED: ENOXAPARIN 100MG/1ML SYRINGE (J1650 PER 10MG) SC ONE (04:00)
[2023-09-05] MEDS ORDERED: ASPIRIN 81MG CHEW TABLET PO ONE (04:00)
[2023-09-05 05:18] LABS: VENOUS BASE EXCESS -11.7 (-2.0-2.0); VENOUS HCO3 15.2 MMOL/L (23.0-27.0); VENOUS O2 SATURATION 62.7 % (60.0-80.0); VENOUS PARTIAL PRESSURE CO2 37.7 mmHg (38.0-50.0); VENOUS PARTIAL PRESSURE O2 36.5 mmHg (30.0-50.0); VENOUS PH 7.222 UNITS (7.330-7.430); VENOUS STANDARD HCO3 14.7 MMOL/L; VENOUS TOTAL CO2 16.3 MMOL/L (24.0-28.0)
[2023-09-05 06:13] LABS: BLOOD UREA NITROGEN 25 MG/DL (9-23); CALCIUM LEVEL 8.1 MG/DL (8.5-10.1); CARBON DIOXIDE LEVEL 16 MMOL/L (20-31); CHLORIDE LEVEL 111 MMOL/L (98-107); CREATININE FOR GFR 0.83 MG/DL (0.70-1.30); GLOMERULAR FILTRATION RATE > 60.0 (>56); GLUCOSE, FASTING 295 MG/DL (60-100); POTASSIUM SERUM 4.3 MMOL/L (3.5-5.1); SODIUM LEVEL 144 MMOL/L (136-145)
[2023-09-05 07:20] LABS: VENOUS BASE EXCESS -7.9 (-2.0-2.0); VENOUS HCO3 17.4 MMOL/L (23.0-27.0); VENOUS O2 SATURATION 88.5 % (60.0-80.0); VENOUS PARTIAL PRESSURE CO2 35.1 mmHg (38.0-50.0); VENOUS PH 7.314 UNITS (7.330-7.430); VENOUS TOTAL CO2 18.5 MMOL/L (24.0-28.0)
[2023-09-05 08:10] LABS: BLOOD UREA NITROGEN 24 MG/DL (9-23); CALCIUM LEVEL 7.9 MG/DL (8.5-10.1); CARBON DIOXIDE LEVEL 20 MMOL/L (20-31); CHLORIDE LEVEL 110 MMOL/L (98-107); CREATININE FOR GFR 0.74 MG/DL (0.70-1.30); GLOMERULAR FILTRATION RATE > 60.0 (>56); GLUCOSE, FASTING 234 MG/DL (60-100); POTASSIUM SERUM 4.4 MMOL/L (3.5-5.1); SODIUM LEVEL 141 MMOL/L (136-145)
[2023-09-05 08:29] VITALS: BP 121/63; TEMP 97; O2SAT 99
== END 2023-09-05 08:34 | disposition short-term general hospital (02) ==
LOC: M ED 00:34
DX: I21.4 Non-ST elevation (NSTEMI) myocardial infarction (principal); E10.10 Type 1 diabetes mellitus with ketoacidosis without coma; K21.9 Gastro-esophageal reflux disease without esophagitis; Z79.4 Long term (current) use of insulin; Z79.899 Other long term (current) drug therapy; Z91.013 Allergy to seafood
CPT/HCPCS: 80048; 80076; 81001; 82010; 82550; 82553; 82803; 83036; 83690; 83735; 83930; 84484; 85025; 87631; 93005; 93041; 94760; 96365; 96366; 96372; 96375; 96376; 99291; J1650; J1815; J2405; J2543

== ENCOUNTER → 2024-02-23 | Outpatient (CLI) | payer OTHER | LOC: M RAD 11:40 | PROVIDERS: ATTEND Nurse Practitioner Adult Health | DX: R22.1 Localized swelling, mass and lump, neck (principal) ==

== ENCOUNTER 2024-11-02 07:01 | Observation (INO) | payer OTHER ==
[~2024-11-02] VITALS: Ht 180.3 cm; Wt 93.0 kg
[~2024-11-02 07:01] MED LIST changes: -ESOM0.1C PO; +ESOM20CA2 PO; +ONDA-282 PO; -ONDA4TAB6 PO
[2024-11-02 07:35] LABS: BASO # 0.1 10^3/uL (0.0-0.2); BASO % 0.6 % (0.0-1.0); EOS # 0.3 10^3/uL (0.0-0.5); EOS % 3.2 % (0.0-3.0); HEMATOCRIT 44.2 % (42.0-52.0); HEMOGLOBIN 15.5 g/dl (13.5-17.5); LYMPH # 2.1 10^3/uL (1.5-5.0); LYMPH % 22.5 % (24.0-44.0); MEAN CORPUSCULAR HEMOGLOBIN 31.6 pg (27.0-33.0); MEAN CORPUSCULAR HGB CONC 35.1 g/dl (32.0-36.5); MONO # 0.7 10^3/uL (0.0-0.8); MONO % 6.8 % (2.0-8.0); NEUTROPHILS # 6.3 10^3/uL (1.5-8.5); NEUTROPHILS % 66.5 % (36.0-66.0); PLATELET COUNT, AUTOMATED 340 10^3/uL (150-450); RED BLOOD COUNT 4.91 10^6/uL (4.30-6.10); WHITE BLOOD COUNT 9.5 10^3/uL (4.0-10.0)
[2024-11-02] MEDS: NS 500 ML IV ONE (08:14)
[2024-11-02 08:38] LABS: ALBUMIN 3.4 G/DL (3.2-5.2); ALKALINE PHOSPHATASE 87 U/L (40-129); ALT/SGPT 22 U/L (7.0-40); AST/SGOT 31 U/L (<34); BILIRUBIN,DIRECT 0.1 MG/DL (<0.4); BILIRUBIN,TOTAL 0.5 MG/DL (0.3-1.2); BLOOD UREA NITROGEN 16 MG/DL (9-23); CALCIUM LEVEL 8.6 MG/DL (8.5-10.1); CARBON DIOXIDE LEVEL 22 MMOL/L (20-31); CHLORIDE LEVEL 107 MMOL/L (98-107); CK-MB VALUE MASS < 1.0 NG/ML (<3.6); CREATININE FOR GFR 0.83 MG/DL (0.70-1.30); GLOMERULAR FILTRATION RATE > 60.0 (>56); GLUCOSE, FASTING 203 MG/DL (60-100); MAGNESIUM LEVEL 1.8 MG/DL (1.8-2.4); POTASSIUM SERUM 4.8 MMOL/L (3.5-5.1); SODIUM LEVEL 142 MMOL/L (136-145)
[2024-11-02 08:42] LABS: FREE T4 1.13 NG/DL (0.89-1.76); THYROID STIMULATING HORMONE 2.774 uIU/ML (0.55-4.78)
[2024-11-02 08:44] LABS: CPK CREATINE PHOSPHOKINASE 118 U/L (46-171); MB/CK RELATIVE INDEX 0.84 (< OR =4)
[2024-11-02 08:58] LABS: CK-MB VALUE MASS 1.6 NG/ML (<3.6)
[2024-11-02 08:59] LABS: CPK CREATINE PHOSPHOKINASE 94 U/L (46-171)
[2024-11-02] MEDS ORDERED: ISOVUE-370 76% 100ML VIAL As Ordered ONE (09:00)
[2024-11-02] MEDS ORDERED: LEVO100T5 PO (09:27)
[2024-11-02] MEDS ORDERED: ADDE30CA3 PO (09:27)
[2024-11-02] MEDS ORDERED: HOME MED LIST COMPLETE! XX SCH (09:30)
[2024-11-02] MEDS ORDERED: GLUCOSE 4 GM CHEW PO PRN (09:50)
[2024-11-02] MEDS ORDERED: DEXTROSE 50% 50ML SYRINGE IV PRN (09:50)
[2024-11-02] MEDS ORDERED: GLUCAGON INJ 1MG VIAL SC PRN (09:50)
[2024-11-02] MEDS ORDERED: ONDANSETRON 4MG 2ML VIAL IV PRN (10:40)
[2024-11-02] MEDS ORDERED: ACETAMINOPHEN 325 MG TAB PO PRN (10:40)
[2024-11-02] MEDS ORDERED: ADDE30TA PO (10:54)
[2024-11-02] MEDS: LEVOTHYROXINE 100MCG TABLET (0.1MG) PO SCH (11:17)
[2024-11-02] MEDS: SERTRALINE 100 MG TAB PO SCH (11:18)
[2024-11-02] MEDS: OMEPRAZOLE 20MG CAP PO SCH (11:18)
[2024-11-02] MEDS: INSULIN LISPRO (NovoLOG) PER UNIT SC SCH (11:20)
[2024-11-02 12:47] LABS: HEMOGLOBIN A1c 7.8 % (4.0-6.0)
[2024-11-02 12:54] LABS: CHOLESTEROL RISK RATIO 3.96 (<5); HDL CHOLESTEROL 46.7 MG/DL (>40); LDL CHOLESTEROL 120.7 MG/DL (<100); NON-HDL-C 138.3 MG/DL
[2024-11-02 14:49] VITALS: BP 140/86; TEMP 98.2; O2SAT 98
[2024-11-02 15:13] LABS: AMPHETAMINES LEVEL URINE NEGATIVE (NEGATIVE); BARBITURATES URINE NEGATIVE (NEGATIVE); BENZODIAZEPINES URINE NEGATIVE (NEGATIVE); CANNABINOIDS URINE POSITIVE (NEGATIVE); COCAINE METABOLITE URINE NEGATIVE (NEGATIVE); METHADONE URINE NEGATIVE (NEGATIVE); OPIATES URINE NEGATIVE (NEGATIVE)
[2024-11-02 15:14] LABS: CK-MB VALUE MASS < 1.0 NG/ML (<3.6); CPK CREATINE PHOSPHOKINASE 105 U/L (46-171); MB/CK RELATIVE INDEX 0.95 (< OR =4)
[2024-11-02 15:15] LABS: PHENCYCLIDINE URINE NEGATIVE (NEGATIVE)
[2024-11-02 16:12] VITALS: BP 137/68; TEMP 97.2; O2SAT 97
[2024-11-02] MEDS ORDERED: INSULIN PUMP (PATIENT'S OWN MED) SQ SCH (17:30)
[2024-11-02 20:06] VITALS: BP 110/58; TEMP 98.5; O2SAT 96
[2024-11-02 20:40] LABS: CK-MB VALUE MASS 1.4 NG/ML (<3.6)
[2024-11-02 20:42] LABS: MB/CK RELATIVE INDEX 1.44 (< OR =4)
[2024-11-02] MEDS ORDERED: INSULIN LISPRO (NovoLOG) PER UNIT SC SCH (21:00)
[2024-11-02 23:30] VITALS: BP 125/62; TEMP 98.3; O2SAT 97
[2024-11-03 02:49] LABS: CK-MB VALUE MASS < 1.0 NG/ML (<3.6)
[2024-11-03 02:50] LABS: CPK CREATINE PHOSPHOKINASE 104 U/L (46-171); MB/CK RELATIVE INDEX 0.96 (< OR =4)
[2024-11-03 04:44] VITALS: BP 129/82; TEMP 97.9; O2SAT 97
[2024-11-03 07:20] LABS: HEMATOCRIT 43.1 % (42.0-52.0); HEMOGLOBIN 15.1 g/dl (13.5-17.5); MEAN CORPUSCULAR HEMOGLOBIN 31.7 pg (27.0-33.0); MEAN CORPUSCULAR VOLUME 90.4 fl (80.0-96.0); PLATELET COUNT, AUTOMATED 306 10^3/uL (150-450); RED BLOOD COUNT 4.77 10^6/uL (4.30-6.10); WHITE BLOOD COUNT 5.9 10^3/uL (4.0-10.0)
[2024-11-03 07:58] LABS: BLOOD UREA NITROGEN 17 MG/DL (9-23); CALCIUM LEVEL 8.7 MG/DL (8.5-10.1); CARBON DIOXIDE LEVEL 27 MMOL/L (20-31); CHLORIDE LEVEL 110 MMOL/L (98-107); CREATININE FOR GFR 0.67 MG/DL (0.70-1.30); GLOMERULAR FILTRATION RATE > 60.0 (>56); GLUCOSE, FASTING 91 MG/DL (60-100); POTASSIUM SERUM 4.3 MMOL/L (3.5-5.1); SODIUM LEVEL 143 MMOL/L (136-145)
[2024-11-03 08:21] VITALS: BP 116/71; TEMP 98.3; O2SAT 97
[2024-11-03] MEDS ORDERED: REGL5TAB2 PO (17:25)
== END 2024-11-03 14:14 | disposition home or self-care (01) ==
LOC: M ED 07:01 → EDBD 07:01 → UNDOADMIN 09:47 → M ED INP 09:47 → INTOOBSV 09:49 → M PCU 14:46
PROVIDERS: ADMIT General Practice; ATTEND General Practice
DX: R55 Syncope and collapse (principal); R06.09 Other forms of dyspnea; M25.512 Pain in left shoulder; M89.8X1 Other specified disorders of bone, shoulder; K31.84 Gastroparesis; R11.2 Nausea with vomiting, unspecified; F12.188 Cannabis abuse with other cannabis-induced disorder; F32.A Depression, unspecified; F41.9 Anxiety disorder, unspecified; K21.9 Gastro-esophageal reflux disease without esophagitis; K44.9 Diaphragmatic hernia without obstruction or gangrene; E03.9 Hypothyroidism, unspecified; K76.89 Other specified diseases of liver; E10.9 Type 1 diabetes mellitus without complications; Z87.891 Personal history of nicotine dependence; I24.89 Other forms of acute ischemic heart disease; Z83.3 Family history of diabetes mellitus; Z80.0 Family history of malignant neoplasm of digestive organs; Z82.0 Family history of epilepsy and other diseases of the nervous system; Z91.013 Allergy to seafood; Z79.899 Other long term (current) drug therapy; Z79.890 Hormone replacement therapy
CPT/HCPCS: 36415; 70450; 71045; 71275; 72125; 73030; 78264; 80048; 80061; 80076; 80307; 82550; 82553; 83036; 83735; 83874; 84439; 84443; 84484; 85025; 85027; 87486; 87581; 87633; 87798; 93005; 93041; 93306; 94760; 96360; 97162; 99285; A9541; Q9967

== ENCOUNTER → 2024-11-03 | Outpatient (CLI) | payer OTHER ==
[~2024-11-03] MED LIST changes: +ADDE30CA3 PO; +ADDE30TA PO; +LEVO100T5 PO; +REGL5TAB2 PO
== END ==
LOC: M EKG 15:05
PROVIDERS: ATTEND General Practice
DX: R55 Syncope and collapse (principal)

== ENCOUNTER → 2024-12-20 | Outpatient (REF) | payer OTHER | LOC: M LAB REF 17:26 | PROVIDERS: ATTEND Nurse Practitioner Adult Health | DX: E03.9 Hypothyroidism, unspecified (principal) ==